=== PATIENT | male | born 1950 | race Caucasian/White ===

== ENCOUNTER 2016-08-31 09:19 | Inpatient (IN) | payer MEDICARE, MEDICAID ==
[~2016-08-31] VITALS: Ht 165.1 cm; Wt 158.4 kg
[2016-08-31] VITALS (11 sets, daily range): BP systolic 112–160; BP diastolic 72–104
[~2016-08-31 09:19] MED LIST: ACET-2429 PO; ACET650S27 PO; AD60O TP; AMIO200T2 PO; ASP81CT; ASP81CT PO; ASPI-983 PO; ATOR40TA70 PO; BNZ10T; BUDE10.22 IH; BUDE10.22 INH; BUDE6HFA IH; CEFD300C3 PO; CMBV14.7IN; DILT120C63 PO; DILT240C47 PO; DILT240C90 PO; DOXY100C2 PO; DOXY100T2 PO; FLUC200T45 PO; FLUT1AER IH; FRSM20T PO; GLIM4TAB PO; HYDR-2854; HYDR-3812 PO; HYDR1TAB; INSU100I14 SQ; INSU100I29 SQ; INSU100V16 SQ; INSU100V5 SQ; JANUVIA; KCL20TCR PO; LACT1CAP62 PO; LANS30CA PO; LEVO750T6 PO; LISI-552 PO; LISI10TA PO; LISI5TAB PO; LNS30CCR; LORA10TA2 PO; LOVA40TA2 PO; MELO-195 PO; MELO15TA39 PO; METF-380 PO; METF1000 PO; MNTL10T PO; MONT10TA24 PO; MTF500T PO; MTP50T; MUPI22OI TP; NAPR-243 PO; NAPR250T34; NF-ESOM40C PO; NF-SITA50T PO; NF-SOT120T; NITR0.3T PO; NITR0.3T6 SL; NITROGLYCERIN; NTR.4SL; NYST15CR3 TP; NYST1POW22 MC; OMEG1CAP51 PO; ONDA-42 SL; PANT40TA3 PO; PGLT30T PO; PRAV40TA2 PO; PRD20T PO; PROP150T2 PO; RIVA20TA PO; RPGL2T; RSG4T; RT-ALBUINH IH; RT-COMBINH; SIMV10TA PO; SOTA120T PO; SULF1TAB35 PO; TAZTIA; TIOT18CA2 INH; TMSL.4C PO; TOPI100T11 PO; TOPI50TA13 PO; TOPI50TA37 PO; TPR100T PO; TRAZ150T72 PO; TRIA1TAB3 PO; ZLP10T PO; ZOLP10TA5 PO
--- OUTSIDE RECORDS SUMMARY | 2016-08-31 09:26 | XMS REPORT | Continuity of Care Document ---
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 If you do not see the information that you expected, contact Release of Information in the Health Information Management department at [phone] for further assistance in locating additional records.[facility] Active Allergies and Adverse Reactions Not on File Current Medications Not on file Active Problems Not on file Social History Tobacco Use Types Packs/Day Years Used Date Never Assessed Plan of Care Health Maintenance Due Date Last Done Comments Hepatitis C Screening 1948 Physical (Comprehensive) 10/31/1955 Exam Pertussis Vaccine 10/31/1959 Tetanus Vaccine 1965 Colorectal Cancer 1998 Screening Shingles Vaccine 2008 Prevnar/Pneumovax (#1) 2013 Influenza Vaccine 04/07/2016 Results from Last 3 Months Not on file
[2016-08-31] MEDS ORDERED: RX-NITROGLYCERIN 0.4 MG TAB BTL 25'S SL PRN (09:30)
[2016-08-31] MEDS ORDERED: ASPIRIN 81 MG CHEW (CHILDREN'S ASA) PO ONE (09:30)
--- NOTE | 2016-08-31 09:49 | Diagnostic Imaging Report ---
INDICATION: Chest pain EXAMINATION: Portable chest at 9:46 AM. There is cardiomegaly. There is pulmonary vascular congestion with some interstitial edema. Lungs are clear. IMPRESSION: Cardiomegaly with pulmonary venous hypertension. Dictated by: Dictated on workstation # [id number]
[2016-08-31 09:50] LABS: BASOPHILS % (AUTO) 0 % (0-10); EOSINOPHILS # (AUTO) 0.1 10^3/uL (0.0-0.3); EOSINOPHILS % (AUTO) 1 % (0-10); LYMPHOCYTES % (AUTO) 14 % (12-44); MEAN CORPUSCULAR HEMOGLOBIN 28 PG (25-34); MEAN CORPUSCULAR HGB CONC 33 G/DL (32-36); MEAN CORPUSCULAR VOLUME 85 FL (80-99); MEAN PLATELET VOLUME 9.6 FL (7.4-10.4); MONOCYTES # (AUTO) 0.6 X 10^3 (0.0-1.0); MONOCYTES % (AUTO) 8 % (0-12); NEUTROPHILS # (AUTO) 5.6 X 10^3 (1.8-7.8); NEUTROPHILS % (AUTO) 77 % (42-75); PLATELET COUNT 249 10^3/uL (130-400); RED BLOOD COUNT 4.84 10^6/uL (4.35-5.85); RED CELL DISTRIBUTION WIDTH 14.9 % (10.0-14.5); WHITE BLOOD COUNT 7.3 10^3/uL (4.3-11.0)
[2016-08-31] MEDS ORDERED: FUROSEMIDE 40 MG/4 ML INJ (LASIX) IVP ONE (10:00)
[2016-08-31] MEDS ORDERED: NITROGLYCERIN 2% OINT 1 GM UNIT DOSE PACKET TOP ONE (10:00)
[2016-08-31 10:05] LABS: INR 1.2 (0.8-1.4); PROTHROMBIN TIME PATIENT 15.1 SEC (12.2-14.7)
[2016-08-31 10:13] LABS: ALANINE AMINOTRANSFERASE 23 U/L (0-55); ALBUMIN 3.6 G/DL (3.2-4.5); AMYLASE 9 U/L (25-125); ANION GAP 10 MMOL/L (5-14); ASPARTATE AMINO TRANSFERASE 19 U/L (5-34); BILIRUBIN,TOTAL 0.7 MG/DL (0.1-1.0); BLOOD UREA NITROGEN 16 MG/DL (7-18); BUN/CREATININE RATIO 18; CALCIUM 8.6 MG/DL (8.5-10.1); CARBON DIOXIDE 20 MMOL/L (21-32); CHLORIDE 105 MMOL/L (98-107); CREATINE KINASE 92 U/L (30-200); CREATININE SERUM 0.89 MG/DL (0.60-1.30); GFR ESTIMATED > 60; GLUCOSE 304 MG/DL (70-105); LIPASE 5 U/L (8-78); MAGNESIUM 1.6 MG/DL (1.8-2.4); POTASSIUM 3.6 MMOL/L (3.6-5.0); SODIUM 135 MMOL/L (135-145); TOTAL PROTEIN 6.1 G/DL (6.4-8.2)
[2016-08-31 10:19] LABS: TROPONIN I < 0.30 NG/ML (<0.30)
[2016-08-31] MEDS ORDERED: methylPREDNISolone 125 MG (Solu-MEDROL) VIAL IVP ONE (10:45)
[2016-08-31] MEDS ORDERED: ENOXAPARIN 60 MG/0.6 ML (LOVENOX) SYR SC ONE (10:45)
[2016-08-31] MEDS ORDERED: ENOXAPARIN 100 MG/1 ML (LOVENOX) SYR SC ONE (10:45)
--- NOTE | 2016-08-31 11:08 | Consultation-Cardiology ---
HPI-Cardiology Cardiology Consultation Date of Consultation 08/31/16 Date of Admission Indication: CP, dyspnea HPI Patient is a 65 y/o male with history of CAD, PAF, morbid obesity, lower extremity cellulitis. Presented to the ER with complaints of increasing dyspnea over the past couple days. Onset of CP this morning. Currently denies any CP. Reports has had fever over the past week. Denies any cough, nausea, vomiting. Denies any dizziness, lightheadedness, syncope. Continues to complain of peripheral edema. Patient was seen and evaluated with Josy, is a 65-year-old gentleman with history of cellulitis admitted with increasing dyspnea and noted to be in tachycardia, known to have paroxysmal atrial flutter with rapid ventricular response. Start on Cardizem drip. 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" Home Medication List Reviewed: Yes JCL-Dykxah-Xnelzp Hx Patient Social History Marital Status: single Alcohol Use: Denies Use Recreational Drug Use: No Smoking Status: Former Smoker Former smoker/When Quit: Jan 05, 1985 Recent Foreign Travel: No Recent Infectious Disease Expo: No Recent Hopitalizations: Yes (HEART PROBLEMS) Physical Abuse Screen: No Sexual Abuse: No Immunizations Up To Date Date of Pneumonia Vaccine: May 06, 2013 Date of Influenza Vaccine: Apr 25, 2016 Past Medical History CAD, PAF, HTN, HLP, Obesity Family Medical History Significant Family History: No Pertinent Family Hx, Diabetes Constitutional: No diaphoresis, No dizziness, fever malaise weakness EENTM: No blurred vision, No ear pain, No vision loss Respiratory: No cough, dyspnea on exertion short of breath Cardiovascular: chest pain edema palpitationsNo syncope, No vascular heart diseas Gastrointestinal: No abdominal pain, No constipation, No diarrhea Genitourinary: No dysuria, No frequency, No hematuria Musculoskeletal: No back pain, No joint pain Skin: No dryness, No lesions Psychiatric/Neurological: Denies Anxiety, Denies Depressed Reviewed Test Results Reviewed Test Results Lab Laboratory Tests 08/31/16 09:35: Activated Partial Thromboplast Time 33, Alanine Aminotransferase (ALT/SGPT) 23, Albumin 3.6, Alkaline Phosphatase 129, Amylase Level 9L, Anion Gap 10, Aspartate Amino Transf (AST/SGOT) 19, B-Type Natriuretic Peptide 51.7, BUN/ Creatinine Ratio 18, Basophils # (Auto) 0.0, Basophils (%) (Auto) 0, Blood Urea Nitrogen 16, Calcium Level 8.6, Carbon Dioxide Level 20L, Chloride Level 105, Creatine Kinase MB 1.7, Creatinine 0.89, Eosinophils # (Auto) 0.1, Eosinophils ( %) (Auto) 1, Estimat Glomerular Filtration Rate > 60, Glucose Level 304H, Hematocrit 41, Hemoglobin 13.6, INR Comment 1.2, Lactic Acid Level 1.6, Lipase 5L, Lymphocytes # (Auto) 1.0, Lymphocytes (%) (Auto) 14, Magnesium Level 1.6L, Mean Corpuscular Hemoglobin 28, Mean Corpuscular Hemoglobin Concent 33, Mean Corpuscular Volume 85, Mean Platelet Volume 9.6, Monocytes # (Auto) 0.6, Monocytes (%) (Auto) 8, Neutrophils # (Auto) 5.6, Neutrophils (%) (Auto) 77H, Platelet Count 249, Potassium Level 3.6, Prothrombin Time 15.1H, Red Blood Count 4.84, Red Cell Distribution Width 14.9H, Sodium Level 135, Total Bilirubin 0.7, Total Creatine Kinase 92, Total Protein 6.1L, Troponin I < 0.30, White Blood Count 7.3 Microbiology 08/31/16 Influenza Types A,B Antigen (ESTHELA) - Final, Complete ECG Impression ECG Initial ECG Rhythm: S.Tach Physical Exam Vital Signs Vital Sign - Last 12Hours 08/31/16 08/31/16 09:20 09:31 Temp 99.4 Pulse 149 Resp 40 B/P 162/96 Pulse Ox 94 O2 Delivery Nasal Cannula O2 Flow Rate 4 FiO2 94 Capillary Refill : Less Than 3 Seconds General Appearance: WD/WN Anxious Mild Distress HEENT: PERRL/EOMI Normal ENT Inspection Neck: Non Tender Supple Respiratory: Chest Non Tender No Accessory Muscle Use No Respiratory Distress Decreased Breath Sounds Cardiovascular: No Gallop No JVD No Murmur Tachycardia Gastrointestinal: No Pulsatile Mass Non Tender Soft Rectal: Deferred Back: No CVA Tenderness Extremity: Non Tender No Calf Tenderness Pedal Edema (+2 edema BLE) Neurologic/Psychiatric: Alert 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 Cardiac enzymes negative so far. Will continue to monitor. CP could be related to underlying tachycardia. Patient to undergo CTA chest for further evaluation. Dyspnea- increasing over the last week. Multifactorial. BNP within normal limits. Most recent 2-D echocardiogram in February 2016 showing ejection fraction 50 -55 percent, normal LV size and function. Coronary artery disease, mild nonobstructive disease per cardiac catheterization done May 07, 2013. Currently asymptomatic. Most recent stress test June 2015 revealed abnormal EKG during Lexiscan injection, resolved spontaneously. No significant ischemia or infarct. EF 71 percent. Paroxysmal atrial fibrillation, he was seen in the past by Dr. Mosher, failed medical treatment in the past with sotalol and amiodarone. Was seen in Consultation by Dr. Bell during his hospital stay in May 2016. Maintained on Propafenone, Cardizem and Xarelto. S/p LinQ implantation with no recent episode of afib. Telemetry revealed tachycardia with HR in the 140's. Was given IV adenoside revealing 2:1 atrial flutter. Will continue with Cardizem gtt. Continue to monitor telemetry. PAT- telemetry and EKG revealing sinus tachycardia. Restart home BP meds and continue to monitor. Hypertension, continue to monitor blood pressure Hyperlipidemia, on Pravachol, I will evaluate lipid profile. Lower extremity cellulitis, patient reports low grade fever over the past week. Further management per medical services. Peripheral edema- continue to diurese. [id number] score is 3, yearly risk of stroke without oral anticoagulation 3.2 percent. Patient is maintained on Xarelto Syncope, reporting improvement, continue to monitor. Still having occasional dizziness, no syncope was reported. Obstructive sleep apnea, COPD. Obesity, educated on weight loss. BMI is 55. Patient need to start on exercise and weight loss program. DM, followed and managed by primary care physician. Gastroesophageal reflux disease. Currently asymptomatic. Continue to monitor. Carotid stenosis, mild per ultrasound done in February 2016, continue to monitor. Thank you for allowing us to participate in the management of Mr. Renteria. This is Josy Cabrera PA-C as a scribe for Dr. Bonilla. This is Dr. Bonilla, I have seen and evaluated the patient with Josy, he is admitted for shortness of breath. Palpitation, there is venous congestion and his lung, BNP is normal. Has cellulitis. Receiving antibiotics. Noted to be tachycardic, started on Cardizem drip without benefit. I proceeded with adenosine injection of 6 mg which showed underlying rhythm of atrial flutter. Denied any chest pain, still short of breath. No palpitation. On examination lungs had bilateral rhonchi. Heart is tachycardic and regular.I would continue with maximizing medical therapy at this point. Continue with Xarelto on Cardizem drip, titrated to achieve adequate heart rate control. Clinical Quality Measures AMI/AHF: ASA po Prior to arrival: No JOSY OZUNA Aug 31, 2016 11:08 GABRIELA BONILLA MD Aug 31, 2016 18:27
[2016-08-31] MEDS ORDERED: DILTIAZEM 25 MG/5 ML INJ (CARDIZEM) VIAL ONE (11:11)
[2016-08-31] MEDS ORDERED: DILTIAZEM 25 MG/5 ML INJ (CARDIZEM) VIAL IVP ONE (11:30)
[2016-08-31] MEDS ORDERED: meTOprolol 5 MG/5 ML (LOPRESSOR) VIAL IV ONE (11:45)
[2016-08-31] MEDS ORDERED: NITROGLYCERIN SUBLINGUAL 0.4 MG TAB (NITROSTAT) SL PRN (12:45)
[2016-08-31] MEDS ORDERED: CATHETER FLUSH 10 ML SYR IV PRN ×2 (12:45→13:00)
[2016-08-31] MEDS ORDERED: morphine INJ 4 MG/ML 1 ML (VIAL/SYRINGE) IVP PRN (12:45)
--- NOTE | 2016-08-31 12:53 | Pulmonary Consultation ---
History of Present Illness History of Present Illness Date of Consultation 08/31/16 12:47 Date of Admission Reason for Visit: CP, dyspnea History of Present Illness 65yo with hx of CAD, PAF, morbid obesity presented to ED secondary to worsening SOB over the last couple days and onset of CP. I am consulted for pulmonary Management. 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" Home Medications Acetaminophen 650 Mg Tablet.er 650 MG PO Q8H PRN PRN MILD PAIN (Reported) Aspirin 81 Mg Tablet.dr 81 MG PO DAILY (Reported) Diltiazem HCl 240 Mg Cap.er.24h 240 MG PO DAILY (Reported) Diltiazem HCl 120 Mg Cap.er.24h #30 120 MG PO HS Prescribed by: GABRIELA MARTINEZ on 06/02/16 1237 Fluticasone/Vilanterol 1 Each Blst.w.dev 2 PUFF IH DAILY (Reported) Insulin Aspart 300 Units/3 Ml Solution SQ SLIDING/SCALE (Reported) 60-150 0 UNITS 151-200 4 UNITS 201-250 6 UNITS 251-300 8 UNITS 301- 350 10 UNITS 351-400 12 UNITS Insulin Detemir 100 Unit/1 Ml Insuln.pen SQ BID (Reported) Nitroglycerin 0.3 Mg Tab.subl 0.3 MG PO UD PRN PRN CHEST PAIN (Reported) NOT TO EXCEED 3 DOSES WITHIN 15 MINUTES Nystatin 1 Each Powder.ea. 1 EACH MC TID (Reported) APPLY TO ABDOMINAL FOLDS AND GROIN GUALDING AND REDNESS Pantoprazole Sodium 40 Mg Tablet.dr 40 MG PO DAILY (Reported) Pravastatin Sodium 40 Mg Tablet 40 MG PO HS (Reported) Propafenone HCl 150 Mg Tablet #60 225 MG PO BID Prescribed by: GABRIELA MARTINEZ on 06/02/16 1237 Rivaroxaban 20 Mg Tablet 20 MG PO DAILY (Reported) Tiotropium [place] 1 Inh Aerp 1 CAP INH DAILY (Reported) Topiramate 50 Mg Tablet 50 MG PO HS (Reported) Trazodone HCl 150 Mg Tablet 150 MG PO HS (Reported) Vitamin A & D 60 Gm Oint TP BID (Reported) Past Luufsdq-Zdpwek-Hbupou Hx Patient Social History Alcohol Use: Denies Use Recreational Drug Use: No Smoking Status: Former Smoker Former Smoker/When Quit: Jan 05, 1985 Recent Foreign Travel: No Contact w/Someone Who Travel: No Recent Infectious Disease Expo: No Recent Hopitalizations: Yes (HEART PROBLEMS) Physical Abuse Screen: No Sexual Abuse: No Immunizations Up To Date Date of Pneumonia Vaccine: May 06, 2013 Date of Influenza Vaccine: Apr 25, 2016 Seasonal Allergies Seasonal Allergies: Yes Surgeries HX Surgeries: Yes (patient unable to recall) Surgeries: Cardiac Respiratory Hx Respiratory Disorders: Yes Respiratory Disorders: Asthma, Sleep Apnea, COPD Cardiovascular Hx 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) Cardiac Disorders: Chronic Edema/Swelling, Coronary Artery Disease, Heart Attack, High Cholesterol, Hypertension, Palpitations Neurological Hx Neurological Disorders: Yes (MENTAL RETARDATION) Neurological Disorders: Developmental Disorder Reproductive System Hx Reproductive Disorders: No Genitourinary Hx Genitourinary Disorders: No Gastrointestinal Hx Gastrointestinal Disorders: Yes Gastrointestinal Disorders: Gastroesophageal Reflux Musculoskeletal Hx Musculoskeletal Disorders: Yes (chronic bilateral knee pain) Musculoskeletal Disorders: Arthritis, Chronic Back Pain Endocrine Hx Endocrine Disorders: Yes (MORBID OBESITY) Endocrine Disorders: Diabetes, Non-Insulin dep HEENT HX ENT Disorders: No Hearing Impairment: Hard of Hearing Cancer Hx Cancer: No Psychosocial Hx Psychiatric Problems: No Integumentary HX Skin/Integumentary Disorder: Yes (cellulitis) Blood Transfusions Hx Blood Disorders: No Family Medical History Significant Family History: No Pertinent Family Hx, Diabetes Exam Exam Vital Signs Date Time Temp Pulse Resp B/P Pulse Ox O2 Delivery O2 Flow Rate FiO2 08/31/16 11:15 138 30 95 OxyMask 5 08/31/16 09:31 99.4 149 40 162/96 94 Nasal Cannula 4 08/31/16 09:20 94 Nasal Cannula 4 94 08/31/16 09:20 Nasal Cannula 4 General Appearance: WD/WN Anxious Mild Distress HEENT: PERRL/EOMI Normal ENT Inspection Neck: Non Tender Supple Respiratory: Chest Non Tender No Accessory Muscle Use No Respiratory Distress Decreased Breath Sounds Cardiovascular: No Gallop No JVD No Murmur Tachycardia Capillary Refill: Less Than 3 Seconds Extremity: Non Tender No Calf Tenderness Pedal Edema (+2 edema BLE) Neurologic/Psychiatric: 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
[2016-08-31] MEDS ORDERED: RT-ALBUTEROL/IPRATROPIUM 3 ML (DUONEB) VIAL INH SCH (13:00)
[2016-08-31] MEDS ORDERED: IOHEXOL 350 MG/ML 150 ML (OMNIPAQUE 350) VIAL IV ONE (13:00)
[2016-08-31] MEDS ORDERED: RT-ALBUTEROL/IPRATROPIUM 3 ML (DUONEB) VIAL INH PRN (13:00)
[2016-08-31] MEDS ORDERED: NS 100 ML (IVPB) BAG IV ONE (13:00)
--- NOTE | 2016-08-31 13:46 | Diagnostic Imaging Report ---
PROCEDURE: CT angiography of the chest with contrast. TECHNIQUE: Multiple contiguous axial images were obtained through the chest after uneventful bolus administration of intravenous contrast. Reconstructed CTA MIP acquisitions were also performed. INDICATION: Shortness of air. Congestive heart failure. Chest pain. Tachycardia. COMPARISON: Chest radiograph 08/31/2016. FINDINGS: Evaluation is limited by contrast timing and motion artifact. There are no large or central pulmonary emboli. Moderate atherosclerotic calcifications including aortic and coronary. No evidence of thoracic aortic aneurysm or dissection on this nondedicated exam. Diffuse groundglass opacities with interlobular septal thickening consistent with pulmonary edema. Small areas of consolidation in the lung bases, right greater than left. No axillary, mediastinal or hilar lymphadenopathy. Cholecystectomy. The visualized upper abdominal contents, including the adrenal glands, are otherwise unremarkable. Moderate degenerative changes in the thoracic spine. IMPRESSION: 1. Examination is limited by motion artifact and contrast timing. 2. No large or central pulmonary emboli. 3. Diffuse groundglass opacities and interlobular septal thickening consistent with pulmonary edema. 4. Small bilateral pleural effusions. 5. Nonspecific small areas of consolidation in the lung bases, right greater than left. This may represent atelectasis. However, an infectious/inflammatory process cannot be excluded. Dictated by: Dictated on workstation # [id number]
[2016-08-31] MEDS: RT-ALBUTEROL/IPRATROPIUM 3 ML (DUONEB) VIAL INH SCH ×2 (14:09→20:08)
[2016-08-31] MEDS: methylPREDNISolone 40 MG/ML (Solu-MEDROL) VIAL IV SCH ×2 (14:12→19:41)
[2016-08-31 14:13] LABS: ABG BASE EXCESS -3.6 MMOL/L (-2.5-2.5); ABG HCO3 21 MMOL/L (23-27); ABG OXYGEN SATURATION 98 % (94-100); ABG PCO2 35 MMHG (35-45); ABG PH 7.39 (7.37-7.43); ABG PO2 99 MMHG (79-93); ABG TCO2 21.7 MMOL/L (21.0-31.0)
[2016-08-31] MEDS: CATHETER FLUSH 10 ML SYR IV SCH ×2 (14:13→21:16)
[2016-08-31] MEDS: DILTIAZEM DRIP 100 MG in SODIUM CHLORIDE (ADD-VANTAGE) 100 ML IV SCH ×2 (14:13→19:41)
[2016-08-31 14:14] LABS: ALLENS TEST YES-POS; PATIENT TEMP 98.4
--- NOTE | 2016-08-31 14:14 | Diagnostic Imaging Report ---
INDICATION: Shortness of air. FINDINGS: The bilateral femoral popliteal deep venous system reveals normal color flow and normal compressibility on grayscale. No deep or superficial thrombi are identified. IMPRESSION: Normal negative bilateral lower extremity venous Doppler and ultrasound exam. Dictated by: Dictated on workstation # [id number]
[2016-08-31] MEDS ORDERED: ADENOSINE 6 MG/2 ML (ADENOCARD) VIAL IV ONE ×3 (14:19→15:00)
[2016-08-31] MEDS ORDERED: NS IV 1000 ML 1,000 ML ONE (14:21)
--- NOTE | 2016-08-31 15:34 | ED Cardiac General ---
History of Present Illness General Chief Complaint: Chest Pain Stated Complaint: CHF CHEST PAIN TACHYCARDIA Nursing Triage Note: PT CO OF CHEST PAIN STARTED AT O500 THIS AM AT MI, PT DENIES C/P AT THIS X. PT HAS NITRO SL X1. PT IS SOA, RR 40 SAT 91%RA,O2@4L PER N/C 95% Source: patient (SOMEWHAT LIMITED HISTORIAN AND SPEECH VERY DIFFICULT TO UNDERSTAND), senior living records, old records History of Present Illness Time seen by provider: 09:25 Initial Comments PT ARRIVES VIA POV FROM ASSISTED PT C/O CHEST PAIN AND SHORTNESS OF BREATH SINCE WAKING AT 0500 WAS GIVEN NTG X 1 AT ASSISTED, AND CHEST PAIN IS COMPLETELY RESOLVED, BUT STILL FEELS SHORT OF BREATH HAS CHRONIC LEG EDEMA AND STATES IT IS NO WORSE THAN NORMAL. 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" Home Medications Acetaminophen 650 Mg Tablet.er 650 MG PO Q8H PRN PRN MILD PAIN (Reported) Aspirin 81 Mg Tablet.dr 81 MG PO DAILY (Reported) Diltiazem HCl 240 Mg Cap.er.24h 240 MG PO DAILY (Reported) Diltiazem HCl 120 Mg Cap.er.24h #30 120 MG PO HS Prescribed by: GABRIELA MARTINEZ on 06/02/16 1237 Fluticasone/Vilanterol 1 Each Blst.w.dev 2 PUFF IH DAILY (Reported) Insulin Aspart 300 Units/3 Ml Solution SQ SLIDING/SCALE (Reported) 60-150 0 UNITS 151-200 4 UNITS 201-250 6 UNITS 251-300 8 UNITS 301- 350 10 UNITS 351-400 12 UNITS Insulin Detemir 100 Unit/1 Ml Insuln.pen SQ BID (Reported) Nitroglycerin 0.3 Mg Tab.subl 0.3 MG PO UD PRN PRN CHEST PAIN (Reported) NOT TO EXCEED 3 DOSES WITHIN 15 MINUTES Nystatin 1 Each Powder.ea. 1 EACH MC TID (Reported) APPLY TO ABDOMINAL FOLDS AND GROIN GUALDING AND REDNESS Pantoprazole Sodium 40 Mg Tablet.dr 40 MG PO DAILY (Reported) Pravastatin Sodium 40 Mg Tablet 40 MG PO HS (Reported) Propafenone HCl 150 Mg Tablet #60 225 MG PO BID Prescribed by: GABRIELA MARTINEZ on 06/02/16 1237 Rivaroxaban 20 Mg Tablet 20 MG PO DAILY (Reported) Tiotropium [place] 1 Inh Aerp 1 CAP INH DAILY (Reported) Topiramate 50 Mg Tablet 50 MG PO HS (Reported) Trazodone HCl 150 Mg Tablet 150 MG PO HS (Reported) Vitamin A & D 60 Gm Oint TP BID (Reported) Review of Systems Constitutional: No diaphoresis, No dizziness, fever malaise weakness EENTM: No Symptoms Reported Respiratory: See HPI Cough Orthopnea Shortness of Air Wheezing Cardiovascular: See HPI Chest Pain EdemaDenies Lightheadedness, Denies Palpitations, Denies Syncope Gastrointestinal: No Symptoms ReportedDenies Abdominal Pain, Denies Nausea, Denies Vomiting Genitourinary: No Symptoms Reported Musculoskeletal: see HPI (EDEMA)No back pain Skin: no symptoms reportedNo dryness, No lesions Psychiatric/Neurological: No Symptoms ReportedDenies Anxiety, Denies Depressed Endocrine: No Symptoms Reported Hematologic/Lymphatic: No Symptoms Reported Past Mymlyjm-Vslfjx-Mabkww Hx Patient Social History Alcohol Use: Denies Use Recreational Drug Use: No Smoking Status: Former Smoker Former Smoker/When Quit: Jan 05, 1985 Recent Foreign Travel: No Contact w/Someone Who Travel: No Recent Infectious Disease Expo: No Recent Hopitalizations: Yes (HEART PROBLEMS) Physical Abuse Screen: No Sexual Abuse: No Immunizations Up To Date Date of Pneumonia Vaccine: May 06, 2013 Date of Influenza Vaccine: Apr 25, 2016 Seasonal Allergies Seasonal Allergies: Yes Surgeries HX Surgeries: Yes (patient unable to recall) Surgeries: Abdominal, Cardiac Respiratory Hx Respiratory Disorders: Yes Respiratory Disorders: Asthma, Sleep Apnea, COPD Cardiovascular Hx Cardiac Disorders: Yes (REVEAL LINQ WHISKEY REGAUGER IMPLANTED) Cardiac Disorders: Chronic Edema/Swelling, Coronary Artery Disease, Heart Attack, High Cholesterol, Hypertension, Palpitations Neurological Hx Neurological Disorders: Yes (MENTAL RETARDATION) Neurological Disorders: Developmental Disorder Reproductive System Hx Reproductive Disorders: No Genitourinary Hx Genitourinary Disorders: No Gastrointestinal Hx Gastrointestinal Disorders: Yes Gastrointestinal Disorders: Gastroesophageal Reflux Musculoskeletal Hx Musculoskeletal Disorders: Yes (chronic bilateral knee pain) Musculoskeletal Disorders: Arthritis, Chronic Back Pain Endocrine Hx Endocrine Disorders: Yes (MORBID OBESITY) Endocrine Disorders: Diabetes, Non-Insulin dep HEENT HX ENT Disorders: No Hearing Impairment: Hard of Hearing Cancer Hx Cancer: No Psychosocial Hx Psychiatric Problems: No Integumentary HX Skin/Integumentary Disorder: Yes (CELLULITIS) Blood Transfusions Hx Blood Disorders: No Family Medical History Significant Family History: Diabetes Physical Exam Vital Signs Vital Sign - Last 12Hours 08/31/16 08/31/16 09:20 09:31 Temp 99.4 Pulse 149 Resp 40 B/P 162/96 Pulse Ox 94 O2 Delivery Nasal Cannula O2 Flow Rate 4 FiO2 94 Capillary Refill : Less Than 3 Seconds General Appearance: Mild Distress (TALKS IN 1-2 WORD SENTENCES) Obese ( MORBIDLY) HEENT: PERRL/EOMI Other (MARKED INFLAMMATION OF RIGHT CONJUNCTIVA WITH CONSTANT TEARING. NO PURULENT DRAINAGE. NO LID SWELLING) Respiratory: Decreased Breath Sounds (IN ALL LUNG SR) Cardiovascular: Tachycardia Extremity: Pedal Edema (3+ WITH CHRONIC VENOUS STASIS CHANGES AND WOODY INDURATION) Neurologic/Psychiatric: Alert Oriented x3 No Motor/Sensory Deficits (GROSSLY INTACT) Normal Mood/Affect Skin: Normal Color Warm/Dry Progress/Results/Core Measures Results/Orders Lab Results Laboratory Tests Test 08/31/16 09:35 Range/Units Activated Partial Thromboplast Time 33 24-35 SEC Alanine Aminotransferase (ALT/SGPT) 23 0-55 U/L Albumin 3.6 3.2-4.5 G/DL Alkaline Phosphatase 129 40-136 U/L Amylase Level 9 L 25-125 U/L Anion Gap 10 5-14 MMOL/L Aspartate Amino Transf (AST/SGOT) 19 5-34 U/L B-Type Natriuretic Peptide 51.7 <100.0 PG/ML BUN/Creatinine Ratio 18 Basophils # (Auto) 0.0 0.0-0.1 10^3/uL Basophils (%) (Auto) 0 0-10 % Blood Urea Nitrogen 16 7-18 MG/DL Calcium Level 8.6 8.5-10.1 MG/DL Carbon Dioxide Level 20 L 21-32 MMOL/L Chloride Level 105 98-107 MMOL/L Creatine Kinase MB 1.7 <6.6 NG/ML Creatinine 0.89 0.60-1.30 MG/DL Eosinophils # (Auto) 0.1 0.0-0.3 10^3/uL Eosinophils (%) (Auto) 1 0-10 % Estimat Glomerular Filtration Rate > 60 Glucose Level 304 H 70-105 MG/DL Hematocrit 41 40-54 % Hemoglobin 13.6 13.3-17.7 G/DL INR Comment 1.2 0.8-1.4 Lactic Acid Level 1.6 0.5-2.0 MMOL/L Lipase 5 L 8-78 U/L Lymphocytes # (Auto) 1.0 1.0-4.0 X 10^3 Lymphocytes (%) (Auto) 14 12-44 % Magnesium Level 1.6 L 1.8-2.4 MG/DL Mean Corpuscular Hemoglobin 28 25-34 PG Mean Corpuscular Hemoglobin Concent 33 32-36 G/DL Mean Corpuscular Volume 85 80-99 FL Mean Platelet Volume 9.6 7.4-10.4 FL Monocytes # (Auto) 0.6 0.0-1.0 X 10^3 Monocytes (%) (Auto) 8 0-12 % Neutrophils # (Auto) 5.6 1.8-7.8 X 10^3 Neutrophils (%) (Auto) 77 H 42-75 % Platelet Count 249 130-400 10^3/uL Potassium Level 3.6 3.6-5.0 MMOL/L Prothrombin Time 15.1 H 12.2-14.7 SEC Red Blood Count 4.84 4.35-5.85 10^6/uL Red Cell Distribution Width 14.9 H 10.0-14.5 % Sodium Level 135 135-145 MMOL/L Total Bilirubin 0.7 0.1-1.0 MG/DL Total Creatine Kinase 92 30-200 U/L Total Protein 6.1 L 6.4-8.2 G/DL Troponin I < 0.30 <0.30 NG/ML White Blood Count 7.3 4.3-11.0 10^3/uL Micro Results Microbiology 08/31/16 Influenza Types A,B Antigen (ESTHELA) - Final, Complete My Orders Orders-FRED MEDINA DO Amylase (08/31/16 09:25) Cbc With Automated Diff (08/31/16 09:25) Comprehensive Metabolic Panel (08/31/16 09:25) Creatine Kinase (08/31/16 09:25) Creatine Kinase Mb (08/31/16 09:25) Lipase (08/31/16 09:25) Partial Thromboplastin Time (08/31/16 09:25) Protime With Inr (08/31/16 09:25) Troponin I (08/31/16 09:25) Chest 1 View, Ap/Pa Only (08/31/16 09:25) O2 (08/31/16 09:25) Ekg Tracing (08/31/16 09:25) Aspirin Chewable Tablet (Baby Aspirin Ch (08/31/16 09:30) Rx-Nitroglycerin Sl Tabs (Rx-Nitrostat S (08/31/16 09:30) BNP (08/31/16 09:25) Monitor-Rhythm Ecg Trace Only (08/31/16 09:25) Magnesium (08/31/16 09:25) Lactic Acid Analyzer (08/31/16 09:37) Blood Culture (08/31/16 09:37) Influenza A And B Antigens (08/31/16 09:37) Furosemide Injection (Lasix Injection) (08/31/16 10:00) Nitroglycerin Ointment (Nitrobid Ointme (08/31/16 10:00) Methylprednisolone Sod Succ (Solu-Medrol (08/31/16 10:45) Enoxaparin Injection (Lovenox Injection) (08/31/16 10:45) Enoxaparin Injection (Lovenox Injection) (08/31/16 10:45) Medications Given in ED Current Medications Medications Dose Ordered Sig/Neo Route Start Time Stop Time Status Last Admin Dose Admin Aspirin 324 mg ONCE ONCE PO 08/31/16 09:30 08/31/16 09:31 DC 08/31/16 09:42 324 MG Enoxaparin Sodium 50 mg ONCE ONCE SC 08/31/16 10:45 08/31/16 10:49 DC 08/31/16 11:02 50 MG Enoxaparin Sodium 100 mg ONCE ONCE SC 08/31/16 10:45 08/31/16 10:49 DC 08/31/16 11:02 100 MG Furosemide 80 mg ONCE ONCE IVP 08/31/16 10:00 08/31/16 10:01 DC 08/31/16 10:06 80 MG Methylprednisolone Sodium Succinate 125 mg ONCE ONCE IVP 08/31/16 10:45 08/31/16 10:46 DC 08/31/16 10:59 125 MG Nitroglycerin 0.5 inch ONCE ONCE TOP 08/31/16 10:00 08/31/16 10:01 DC 08/31/16 10:06 0.5 INCH Vital Signs/I&O Vital Sign - Last 12Hours 08/31/16 08/31/16 08/31/16 09:20 09:20 09:31 Temp 99.4 Pulse 149 Resp 40 B/P 162/96 Pulse Ox 94 94 O2 Delivery Nasal Cannula Nasal Cannula Nasal Cannula O2 Flow Rate 4 4 4 FiO2 94 Blood Pressure Mean: 118 Progress Note : Progress Note NO CHEST PAIN DURING ER STAY NO SIGNIFICANT IMPROVEMENT IN HEART RATE OR BP WITH CARDIZEM AND LOPRESSOR ECG Initial ECG Impression Time: 09:30 Initial ECG Rate: 142 Initial ECG Rhythm: SVT Initial ECG Comparisson: Unchanged Diagnostic Imaging Comments CXR--CARDIOMEGALY WITH PULMONARY VASCULAR CONGESTION--PER RADIOLOGIST REPORT Reviewed: Reviewed by Me Departure Communication Progress Notes 1022--SPOKE WITH DR. COSBY, ACCEPTS PT FOR ADMIT. WILL CONSULT DR. MARTINEZ AND DR. BRAUN 1039--SPOKE WITH DR. MARTINEZ FOR CARDIOLOGY CONSULT--WILL ORDER BILATERAL VENOUS DOPPLER OF LEGS AND CT CHEST ANGIOGRAM. WILL GIVE LOVENOX AND SOLU-MEDROL WELL. WILL HAVE DR. BRAUN NOTIFIED ON PT'S ADMIT. Impression Impression: Primary Impression: Chest pain Additional Impressions: CHF (congestive heart failure) POSSIBLE ARDS Supraventricular tachycardia SINUS TACHYCARDIA VS A FIB WITH RVR Morbid obesity MORBID OBESITY CHRONIC LEG EDEMA Disposition: ADMITTED INPATIENT Condition: Stable Decision to Admit/Date: Aug 31, 2016 Time/Decision to Admit Time: 10:25 Departure-Patient Inst. Referrals: EDEN OLSON MD (PCP) Primary Care Physician FRED MEDINA DO Aug 31, 2016 15:34
[2016-08-31] MEDS ORDERED: PROP225T2 PO (16:14)
[2016-08-31] MEDS ORDERED: GLIM4TAB PO (16:14)
[2016-08-31] MEDS ORDERED: ACET325T49 PO (16:14)
[2016-08-31] MEDS ORDERED: NEO/3.5O18 OD (16:14)
[2016-08-31] MEDS ORDERED: DILT120C85 PO (16:14)
[2016-08-31] MEDS ORDERED: VIGAMOX OS (16:14)
[2016-08-31] MEDS ORDERED: PROP15DR OD (16:15)
[2016-08-31] MEDS: inSUlin (REGULAR) HUMAN 1 UNIT/0.01 ML (CHARGE PER UNIT) SC SCH ×2 (16:59→21:20)
[2016-08-31] MEDS ORDERED: RIVAROXABAN 20 MG TABLET (XARELTO) PO SCH (17:00)
[2016-08-31] MEDS ORDERED: DIGOXIN 0.25 MG/ML (LANOXIN) 2 ML AMP IV ONE (18:15)
[2016-09-01] VITALS (18 sets, daily range): BP systolic 101–146; BP diastolic 64–86
[2016-09-01] MEDS: DIGOXIN 0.25 MG/ML (LANOXIN) 2 ML AMP IV SCH ×2 (00:42→06:19)
[2016-09-01] MEDS: methylPREDNISolone 40 MG/ML (Solu-MEDROL) VIAL IV SCH ×4 (00:45→18:49)
[2016-09-01] MEDS: DILTIAZEM DRIP 100 MG in SODIUM CHLORIDE (ADD-VANTAGE) 100 ML IV SCH ×2 (00:52→06:12)
[2016-09-01] MEDS: RT-ALBUTEROL/IPRATROPIUM 3 ML (DUONEB) VIAL INH SCH ×4 (02:05→20:52)
[2016-09-01 04:24] LABS: BASOPHILS % (AUTO) 0 % (0-10); EOSINOPHILS % (AUTO) 0 % (0-10); LYMPHOCYTES # (AUTO) 0.4 X 10^3 (1.0-4.0); LYMPHOCYTES % (AUTO) 7 % (12-44); MEAN CORPUSCULAR HEMOGLOBIN 28 PG (25-34); MEAN CORPUSCULAR HGB CONC 33 G/DL (32-36); MEAN CORPUSCULAR VOLUME 84 FL (80-99); MEAN PLATELET VOLUME 9.7 FL (7.4-10.4); MONOCYTES # (AUTO) 0.1 X 10^3 (0.0-1.0); MONOCYTES % (AUTO) 1 % (0-12); NEUTROPHILS # (AUTO) 5.1 X 10^3 (1.8-7.8); NEUTROPHILS % (AUTO) 92 % (42-75); PLATELET COUNT 237 10^3/uL (130-400); RED BLOOD COUNT 4.76 10^6/uL (4.35-5.85); RED CELL DISTRIBUTION WIDTH 14.8 % (10.0-14.5); WHITE BLOOD COUNT 5.5 10^3/uL (4.3-11.0)
[2016-09-01 04:50] LABS: ALANINE AMINOTRANSFERASE 23 U/L (0-55); ALBUMIN 3.5 G/DL (3.2-4.5); ANION GAP 12 MMOL/L (5-14); ANISOCYTOSIS SLIGHT; ASPARTATE AMINO TRANSFERASE 18 U/L (5-34); BAND NEUTROPHILS 0 %; BASOPHILS % (MANUAL) 0 %; BILIRUBIN,TOTAL 0.5 MG/DL (0.1-1.0); BLOOD UREA NITROGEN 18 MG/DL (7-18); BUN/CREATININE RATIO 21; CALCIUM 8.8 MG/DL (8.5-10.1); CARBON DIOXIDE 18 MMOL/L (21-32); CHLORIDE 107 MMOL/L (98-107); CREATININE SERUM 0.84 MG/DL (0.60-1.30); EOSINOPHILS % (MANUAL) 0 %; GFR ESTIMATED > 60; GLUCOSE 300 MG/DL (70-105); LYMPHOCYTES % (MANUAL) 5 %; NEUTROPHILS % (MANUAL) 90 %; POTASSIUM 3.9 MMOL/L (3.6-5.0); REACTIVE LYMPHOCYTES 4 %; SODIUM 137 MMOL/L (135-145); TOTAL PROTEIN 6.1 G/DL (6.4-8.2)
[2016-09-01 05:07] LABS: MAGNESIUM 1.8 MG/DL (1.8-2.4); PHOSPHORUS 4.4 MG/DL (2.3-4.7)
[2016-09-01] MEDS: CATHETER FLUSH 10 ML SYR IV SCH ×3 (05:49→21:55)
[2016-09-01] MEDS: inSUlin (REGULAR) HUMAN 1 UNIT/0.01 ML (CHARGE PER UNIT) SC SCH ×4 (06:19→21:55)
--- NOTE | 2016-09-01 07:28 | Cardiology Progress Note ---
Subjective Subjective/Events-last exam patient is feeling better, converted to sinus rhythm. No chest pain Review of Systems General: No Chills, No Night Sweats, No Fatigue, No Malaise, No Appetite, No Other HEENT: No Head Aches, No Visual Changes, No Eye Pain, No Ear Pain, No Dysphasia , No Sinus Congestion, No Post Nasal Drip, No Sore Throat, No Other Pulmonary: Dyspnea CoughNo Pleuritic Chest Pain, No Other Cardiovascular: : EdemaNo: Chest Pain, Lt Headedness, Orthopnea, Other, Palpitations, Paroxysmal Noc. Dyspnea Objective-Cardiology Exam Last Set of Vital Signs Vital Signs 09/01/16 09/01/16 09/01/16 04:00 06:00 06:12 Temp 98.5 Pulse 123 Resp 25 B/P 118/75 Pulse Ox 92 O2 Delivery NIV/Bilevel O2 Flow Rate 70.00 FiO2 70 Capillary Refill : Less Than 3 Seconds I&O Bad tableGeneral: Alert, Oriented X3, Cooperative, Mild Distress HEENT: Atraumatic, PERRLA Neck: Supple, No JVD, No Thyromegaly, Other Lungs: Normal Air Movement, Other (bilateral rhonchi) Heart: Regular Rate, Normal S1, Normal S2, No Murmurs Abdomen: Normal Bowel Sounds, Soft, No Tenderness, No Hepatosplenomegaly, No Masses Extremities: No Clubbing, No Cyanosis, No Tenderness/Swelling, Other (erythema and edema) Skin: Other (cellulitis on the lower extremity) Neuro: Strength at 5/5 X4 Ext, Normal Tone, Sensation Intact Psych/Mental Status: Mood NL Results Lab Laboratory Tests 08/31/16 09:35 09/01/16 03:58 A/P-Cardiology Admission Diagnosis CP Dyspnea PAF PAT Assessment/Plan Dyspnea, acute respiratory insufficiency. Most recent 2-D echocardiogram in February 2016 showing ejection fraction 50-55 percent, normal LV size and function. improving at this time. Coronary artery disease, mild nonobstructive disease per cardiac catheterization done May 07, 2013. Currently asymptomatic. Most recent stress test June 2015 revealed abnormal EKG during Lexiscan injection, resolved spontaneously. No significant ischemia or infarct. EF 71 percent. Paroxysmal atrial fibrillation, he was seen in the past by Dr. Mosher, failed medical treatment in the past with sotalol and amiodarone. Was seen in Consultation by Dr. Bell during his hospital stay in May 2016. Maintained on Propafenone, Cardizem and Xarelto. S/p LinQ implantation with no recent episode of afib. Telemetry revealed tachycardia with HR in the 140's. Was given IV adenosie revealing 2:1 atrial flutter. converted to sinus rhythm at this time. Continue to monitor Hypertension, continue to monitor blood pressure Hyperlipidemia, on Pravachol, monitor lipids Lower extremity cellulitis, patient reports low grade fever over the past week. Further management per medical services. Peripheral edema- continue to diurese. [id number] score is 3, yearly risk of stroke without oral anticoagulation 3.2 percent. Patient is maintained on Xarelto Syncope, reporting improvement, continue to monitor. Still having occasional dizziness, no syncope was reported. Obstructive sleep apnea, COPD. Obesity, educated on weight loss. BMI is 55. Patient need to start on exercise and weight loss program. DM, followed and managed by primary care physician. Gastroesophageal reflux disease. Currently asymptomatic. Continue to monitor. Carotid stenosis, mild per ultrasound done in February 2016, continue to monitor. Clinical Quality Measures AMI/AHF: ASA po Prior to arrival: No DVT/VTE Risk/Contraindication: Risk Factor Score Per Nursin RFS Level Per Nursing on Admit: 4+=Very High GABRIELA MARTINEZ MD Sep 01, 2016 07:28
--- NOTE | 2016-09-01 07:40 | Diagnostic Imaging Report ---
INDICATION: Chest pain and tachycardia 0438 hours Since the study of one day earlier, there is persistent cardiomegaly. Bilateral airspace disease is stable or slightly improved. No pneumothorax or new infiltrate is seen. IMPRESSION: Cardiomegaly with stable or mildly improved bilateral edema. Dictated by: Dictated on workstation # [id number]
[2016-09-01] MEDS: ASPIRIN E.C. 81 MG (ECOTRIN) TAB PO SCH (08:57)
[2016-09-01] MEDS: DILTIAZEM 240 MG (CARDIZEM CD) CAP PO SCH (08:57)
[2016-09-01] MEDS ORDERED: ASPIRIN E.C. 325 MG (ECOTRIN) TABLET PO SCH (09:00)
[2016-09-01] MEDS ORDERED: ASPIRIN E.C. 81 MG (ECOTRIN) TAB PO SCH (09:00)
--- NOTE | 2016-09-01 09:53 | History & Physical-Hospitalist ---
HPI History of Present Illness: HPI/Chief Complaint CC: Shortness of breath HPI: Mr. Renteria is a 65yoWM with a PMH of DM, HTN, CAD, CHF, and ZEN who was brought to the hospital by the usp after being short of breath with chest pain yesterday. He described his pain as "like getting kicked in the chest ". The pain was centered in the sternum, and did not radiate anywhere. He did not have any associated syncope, diaphoresis, or dizziness. He was short of breath at this time. He was given a nitroglycerin in the ED and the chest pain went away. He has not had a repeat of chest pain since then. He was found to be in Afib with RVR with the rate in the 130's. He was admitted to the ICU on a Cardizem drip. He converted back to sinus rhythm around 0700 on 09/01/16 and was started on PO medication so he could be transferred to the floor. He has been feeling much better this morning. He feels like he can catch his breath. RN interview: Patient was on BiPap overnight requiring 15L of oxygen supplementation. By this morning after he converted he was doing much better and was off BiPap only needing 6L via NC. Patient's PCP is Dr. Alcazar. He lives in [place] currently. 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" Past Vwkfbqs-Yrueak-Qoskrw Hx Patient Social History Marrital Status: single Alcohol Use: Denies Use Recreational Drug Use: No Smoking Status: Former Smoker Former smoker/When Quit: Jan 05, 1985 Physical Abuse Screen: No Sexual Abuse: No Recent Foreign Travel: No Contact w/other who traveled: No Recent Hopitalizations: Yes (HEART PROBLEMS) Recent Infectious Disease Expo: No Immunizations Up To Date Date of Pneumonia Vaccine: May 06, 2013 Date of Influenza Vaccine: Apr 25, 2016 Seasonal Allergies Seasonal Allergies: Yes Surgeries HX Surgeries: Yes (patient unable to recall) Surgeries: Abdominal, Cardiac Respiratory Hx Respiratory Disorders: Yes Respiratory Disorders: Sleep Apnea Cardiovascular Hx Cardiovascular Disorders: Yes (REVEAL LINQ TRADE SHOW COORDINATOR IMPLANTED) Cardiac Disorders: Chronic Edema/Swelling, Coronary Artery Disease, Heart Attack, High Cholesterol, Hypertension, Palpitations Neurological Hx Neurological Disorders: Yes (MENTAL RETARDATION) Neurological Disorders: Developmental Disorder Reproductive System Hx Reproductive Disorders: No Genitourinary Hx Genitourinary Disorders: No Gastrointestinal Hx Gastrointestinal Disorders: Yes Gastrointestinal Disorders: Gastroesophageal Reflux Musculoskeletal Hx Musculoskeletal Disorders: Yes (chronic bilateral knee pain) Musculoskeletal Disorders: Arthritis, Chronic Back Pain Endocrine Hx Endocrine Disorders: Yes (MORBID OBESITY) Endocrine Disorders: Diabetes, Non-Insulin dep HEENT HX ENT Disorders: No Hearing Impairment: Hard of Hearing Cancer Hx Cancer: No Psychosocial Hx Psychiatric Problems: No Integumentary HX Skin/Integumentary Disorder: Yes (CELLULITIS) Blood Transfusions Hx Blood Disorders: No Family Medical History Significant Family History: Diabetes Review of Systems Constitutional: No chills, No diaphoresis, No dizziness, No fever EENTM: no symptoms reported Respiratory: orthopnea short of breath wheezing Cardiovascular: chest pain (resolved)No palpitations, No syncope Gastrointestinal: no symptoms reported Genitourinary: no symptoms reported Musculoskeletal: no symptoms reported Skin: rash (on legs) Psychiatric/Neurological: No Symptoms Reported All Other Systems Reviewed Negative Unless Noted: Yes Physical Exam Physical Exam Vital Signs Vital Sign - Last 12Hours 08/31/16 08/31/16 09:20 09:31 Temp 99.4 Pulse 149 Resp 40 B/P 162/96 Pulse Ox 94 O2 Delivery Nasal Cannula O2 Flow Rate 4 FiO2 94 Capillary Refill : Less Than 3 Seconds General Appearance: No Apparent Distress WD/WN Chronically ill Obese Other ( breathing much more comfortably today) HEENT: PERRL/EOMI TMs Normal Normal ENT Inspection Pharynx Normal Neck: Full Range of Motion Normal Inspection Non Tender Supple Respiratory: Chest Non Tender No Accessory Muscle Use No Respiratory Distress Other (decreased breath sounds do to body habitus but lungs more clear today) Cardiovascular: Regular Rate, Rhythm No Gallop No JVD No Murmur Normal Peripheral Pulses Irregularly Irregular Other (3+ peripheral edema with skin color changes) Gastrointestinal: Normal Bowel Sounds No Organomegaly No Pulsatile Mass Non Tender Soft Other (morbidly obese) Rectal: Deferred Back: Normal Inspection Extremity: Normal Capillary Refill Normal Range of Motion Non Tender No Calf Tenderness Pedal Edema Neurologic/Psychiatric: Alert Oriented x3 No Motor/Sensory Deficits Normal Mood/Affect Skin: Normal Color Warm/Dry Lymphatic: No Adenopathy Results Results/Procedures Lab Laboratory Tests 08/31/16 09:35 09/01/16 03:58 Radiology Chest xray 08/31: Cardiomegaly with pulmonary venous hypertension. chest xray 09/01: Cardiomegaly with stable or mildly improved bilateral edema. CTA chest/thorax: 1. Examination is limited by motion artifact and contrast timing. 2. No large or central pulmonary emboli. 3. Diffuse groundglass opacities and interlobular septal thickening consistent with pulmonary edema. 4. Small bilateral pleural effusions. 5. Nonspecific small areas of consolidation in the lung bases, right greater than left. This may represent atelectasis. However, an infectious/inflammatory process cannot be excluded. US b/l lower ext: Normal negative bilateral lower extremity venous Doppler and ultrasound exam. Assessment/Plan Admission Diagnosis 1. Afib with RVR 2. Hypoxia 3 Tachypnea 4. CHF 5. CAD 6. HTN 7. DM 8. ZEN 9. Morbid obesity 10 Acute bronchospasm on steroids Assessment and Plan 1. Afib with RVR 2. Hypoxia 3 Tachypnea 4. CHF 5. CAD 6. HTN 7. DM 8. ZEN 9. Morbid obesity -Converted to sinus rhythm this morning. Stop Cardizem drip, switch to PO. -Transfer to floor -Monitor vitals -Monitor labs -Cardiology consult -Pulm consult -nebs and steroids -reconcile home meds -will need O2 sat testing before discharge -continue sliding scale "A" -palliative care consultation Clinical Quality Measures AMI/AHF: ASA po Prior to arrival: No DVT/VTE Risk/Contraindication: Risk Factor Score Per Nursin RFS Level Per Nursing on Admit: 4+=Very High EMA ACUNA DO Sep 01, 2016 09:53
[2016-09-01] MEDS ORDERED: ACETAMINOPHEN 325 MG TABLET/CAPLET (TYLENOL) PO PRN (10:00)
[2016-09-01] MEDS ORDERED: NITROGLYCERIN 0.3 MG PO PRN (10:00)
[2016-09-01] MEDS: PROPAFENONE 150 MG (RYTHMOL) TABLET PO SCH ×2 (10:03→22:23)
[2016-09-01] MEDS ORDERED: ARTIFICAL TEARS 0.4 ML UNIT DOSE (REFRESH PLUS) OU PRN (11:30)
--- NOTE | 2016-09-01 11:30 | Electrophysiology Consultation ---
HPI-Cardiology Cardiology Consultation: Date of Consultation 09/01/16 Date of Admission Attending Physician Ema Acuna DO Admitting Physician Shira Alcazar MD Consulting Physician Jamal LUNA MD HPI: Chief Complaint: atrial fibrillation with rapid ventricular rate this is a 65-year-old gentleman with history of morbid obesity, sleep apnea, COPD. He is a patient of Dr. Bonilla. I previously did an EP consultation during a hospitalization in May 2016. He had also presented with atrial fibrillation at that point in time. He was refractory to sotalol. We had started him on propafenone. He presented yesterday with atrial fibrillation with rapid ventricular rate, we started him on Cardizem infusion and loaded him with digoxin. He continues to be on Xarelto. This morning he has converted to sinus rhythm and denies any palpitations. Review of Systems-Cardiology Review of Systems Constitutional: No As described under HPI, No no symptoms reported, No chills, No fever, No lightheadedness, No malaise, No tiredness, No weight loss, No weight gain, No other Eyes: No As described under HPI, No no symptoms reported, No blindness, No blurred vision, No contact lenses, No drainage, No decreased acuity, No foreign body sensation, No glasses, No inflammation, No pain, No photophobia, No previous injury, No shadows, No tunnel vision, No other, No vision change Ears/Nose/Throat: No As described under HPI, No no symptoms reported, No chronic hearing loss, No epistaxis, No ear discharge, No ear pain, No loose teeth, No mouth pain, No mouth swelling, No nasal drainage, No nose pain, No recent hearing loss, No throat pain, No throat swelling, No ulcerations, No other Respiratory: No no symptoms reported, No As described under HPI, No cough, No orthopnea, No shortness of breath, No SOB with excertion, No SOB at rest, No stridor, No wheezing, No other Cardiovascular: palpitations Gastrointestinal: No no symptoms reported, No As described under HPI, No abdomen distended, No abdominal pain, No blood streaked bowels, No constipation , No diarrhea, No difficulty swallowing, No nausea, No poor appetite, No poor fluid intake, No rectal bleeding, No vomiting, No other, No nausea/vomiting/ diarrhea, No stool coloration changes Genitourinary: No no symptoms reported, No As described under HPI, No burning, No dysuria, No discharge, No frequency, No flank pain, No hematuria, No incontinence, No pain, No urgency, No other, No urine frequency changes, No urine coloration changes Musculoskeletal: No no symptoms reported, No As describe under HPI, No back pain, No gout, No joint pain, No joint swelling, No muscle pain, No muscle stiffness, No neck pain, No other Skin: No no symptoms reported, No As described under HPI, No change in color, No change in hair/nails, No dryness, No lesions, No lumps, No rash, No other, No skin related problems, No ulcerations, No rash on exposed areas, No ulcerations on exposed areas Psychiatric/Neurological: No As described under HPI, No anxiety, No depression , No emotional problems, No focal weakness, No headache, No no symptoms reported , No numbness, No other, No pre-existing deficit, No seizure, No syncope, No tingling, No tremors, No weakness All Other Systems Reviewed Negative Unless Noted: Yes FIA-[id number] Hx Patient Social History Marrital Status: single Alcohol Use: Denies Use Recreational Drug Use: No Smoking Status: Former Smoker Former smoker/When Quit: Jan 05, 1985 Recent Foreign Travel: No Recent Infectious Disease Expo: No Hospitalization with Isolation: Denies Physical Abuse Screen: No Sexual Abuse: No Immunizations Up To Date Date of Pneumonia Vaccine: May 06, 2013 Date of Influenza Vaccine: Apr 25, 2016 Past Medical History PMH As described under Assessment. 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" Home Medications Acetaminophen 325 Mg Tablet 650 MG PO Q8H PRN PRN MILD PAIN (Reported) TAKES 2 (325 MG) TABLETS Aspirin 81 Mg Tablet.dr 81 MG PO DAILY (Reported) Diltiazem HCl 240 Mg Cap.er.24h 240 MG PO DAILY (Reported) Diltiazem HCl 120 Mg Capsule.er 120 MG PO HS (Reported) Fluticasone/Vilanterol 1 Each Blst.w.dev 2 PUFF IH DAILY (Reported) Glimepiride 4 Mg Tablet 4 MG PO DAILY (Reported) Insulin Aspart 300 Units/3 Ml Solution SQ SLIDING/SCALE (Reported) 60-150 0 UNITS 151-200 4 UNITS 201-250 6 UNITS 251-300 8 UNITS 301- 350 10 UNITS 351-400 12 UNITS Insulin Detemir 100 Unit/1 Ml Insuln.pen 45 UNITS SQ BID (Reported) Moxifloxacin HCl 3 Ml Soln 1 DROP OS QID (Reported) Maximino/Polymyx B Sulf/Dexameth 3.5 Gm Oint...g. 1 APPLIC OD QID (Reported) USES ON RIGHT EYELID AFTER "LID SCRUB" Nitroglycerin 0.3 Mg Tab.subl 0.3 MG PO UD PRN PRN CHEST PAIN (Reported) NOT TO EXCEED 3 DOSES WITHIN 15 MINUTES Nystatin 1 Each Powder.ea. 1 EACH MC TID (Reported) APPLY TO ABDOMINAL FOLDS AND GROIN GUALDING AND REDNESS Pantoprazole Sodium 40 Mg Tablet.dr 40 MG PO DAILY@1400 (Reported) Pravastatin Sodium 40 Mg Tablet 40 MG PO HS (Reported) Propafenone HCl 225 Mg Tablet 225 MG PO BID (Reported) Propylene Glycol/Peg 400 15 Ml Drops 2 DROPS OD BID (Reported) Rivaroxaban 20 Mg Tablet 20 MG PO DAILY@1700 (Reported) Tiotropium [place] 1 Inh Aerp 1 CAP INH DAILY (Reported) Topiramate 50 Mg Tablet 50 MG PO HS (Reported) Vitamin A & D 60 Gm Oint TP BID (Reported) Physical Exam-Cardiology Physical Exam Vital Signs/I&O Vital Sign - Last 12Hours 08/31/16 09/01/16 09/01/16 09/01/16 23:50 00:00 00:00 00:04 Temp 97.9 Pulse 88 126 131 Resp 18 25 20 B/P 115/83 102/68 Pulse Ox 90 90 91 90 O2 Delivery NIV/Bilevel NIV/Bilevel NIV/Bilevel O2 Flow Rate 70.00 70.00 70.00 FiO2 50 09/01/16 09/01/16 09/01/16 09/01/16 00:52 01:00 01:00 02:00 Pulse 101 109 109 85 Resp 19 18 B/P 114/96 109/64 118/72 Pulse Ox 91 94 O2 Delivery NIV/Bilevel NIV/Bilevel O2 Flow Rate 70.00 70.00 09/01/16 09/01/16 09/01/16 09/01/16 02:05 03:00 04:00 04:00 Temp 98.5 Pulse 125 130 129 Resp 21 19 23 B/P 116/72 129/85 Pulse Ox 93 91 93 93 O2 Delivery NIV/Bilevel NIV/Bilevel NIV/Bilevel O2 Flow Rate 70.00 70.00 70.00 FiO2 70 09/01/16 09/01/16 09/01/16 09/01/16 04:11 05:00 06:00 06:12 Pulse 131 92 137 123 Resp 19 23 25 B/P 116/83 118/75 118/75 Pulse Ox 90 92 90 92 O2 Delivery NIV/Bilevel NIV/Bilevel O2 Flow Rate 70.00 70.00 70.00 09/01/16 09/01/16 09/01/16 09/01/16 07:00 08:00 09:00 10:02 Temp 96.9 Pulse 81 91 Resp 22 B/P 118/76 Pulse Ox 91 91 90 O2 Delivery High Flow NC High Flow NC O2 Flow Rate 6.00 6.00 6.00 Intake and Output 09/01/16 00:00 Intake Total 50 ml Output Total 125 ml Balance -75 ml Capillary Refill : Less Than 3 Seconds Constitutional: No appears stated age, No AAO x 3, No apparent distress, No PERRL, No well-developed, No well-nourished, No other HEENT: No PERRL, No normal ENT inspection, No TMs normal, No pharynx normal, No scleral icterus (R), No scleral icterus (L), No pale conjunctivae (R), No pale conjunctivae (L), No photophobia, No TM abnormal (R), No TM abnormal (L), No pharyngeal erythema, No tonsillar exudate, No other, No discharge, No EOMI, No hearing is well preserved, No hard of hearing, No oral hygience is good, No ulceration, No xanthelasmas are seen Neck: No non-tender, No full range of motion, No supple, No normal inspection, No carotid bruit, No limited range of motion, No lymphadenopathy (R), No lymphadenopathy (L), No tender lateral, No tender midline, No thyromegaly, No other, No carotid pulses are 2 + bilaterally, No with good upstrokes Respiratory: No accessory muscle use, No respiratory distress, No chest tender , No chest expansion is symmetric, No chest is bilaterally symmetric, No lungs clear to percussion, No lungs clear to auscultation, No crackles, No rhonchi, No rales, No stridor, No wheezing, No pleural rub, No other Cardiovascular: No regular rate-rhythm, No irregularly irregular, No extra beats, No parasternal heave is noted, No JVD, No edema, No bradycardia, No tachycardia, No point of maximal impulse, No cardiac thrills are palpable, No S1 and S2, No gallop/S3, No gallop/S4, No diastolic murmur, No systolic murmur, No friction rub, No click, No other Gastrointestinal: No tender, No soft, No round, No distended, No pulsatile mass , No organomegaly, No guarding, No rebound, No tenderness, No hernia, No mass, No audible bowel sounds, No abnormal bowel sounds, No abdominal bruits, No spleenomegaly, No other Rectal: deferred Extremities: No normal range of motion, No non-tender, No normal inspection, No pedal edema, No calf tenderness, No normal capillary refill, No pelvis stable , No calf tenderness, No inflammation, No pedal edema, No slow capillary refill , No swelling, No other, No abrasion, No clubbing, No cyanosis, No ecchymosis, No laceration, No no lower extremity edema bilateral, No significant edema, No tenderness, No wound Neurologic/Psychiatric: No coordinator integrated marketing II-XII nml as tested, No no motor/sensory deficits, No alert, No normal mood/affect, No oriented x 3, No abnormal cerebellar tests, No abnormal coordinator integrated marketing II-XII, No abnormal gait, No aphasia, No EOM palsy, No facial droop, No motor weakness, No sensory deficit, No depressed affect, No disoriented x 3, No other, No grossly intact, No power is 5/5 both on sides Skin: No normal color, No warm/dry, No cyanosis, No cool, No diaphoresis, No damp, No ecchymosis, No jaundice, No mottled, No pallor, No rash, No tattoos/ piercings, No ulcerations, No rash on exposed areas, No ulcerations on exposed areas, No other Data Review Labs Laboratory Tests 08/31/16 14:04: Guzman Test YES-POS, Arterial Blood Base Excess -3.6L, Arterial Blood HCO3 21L, Arterial Blood Oxygen Saturation 98, Arterial Blood Partial Pressure CO2 35, Arterial Blood Partial Pressure O2 99H, Arterial Blood Total CO2 21.7, Arterial Blood pH 7.39, Blood Gas Inspired Oxygen 10 Liters, Blood Gas Patient Temperature 98.4, Blood Gas Puncture Site RT RADIAL, Blood Gas Ventilator Setting NO 08/31/16 15:58: Troponin I < 0.30 08/31/16 16:43: Glucometer 246H 08/31/16 21:18: Glucometer 350H 09/01/16 03:58: Alanine Aminotransferase (ALT/SGPT) 23, Albumin 3.5, Alkaline Phosphatase 122, Anion Gap 12, Anisocytosis SLIGHT, Aspartate Amino Transf (AST/SGOT) 18, BUN/ Creatinine Ratio 21, Band Neutrophils 0, Basophils # (Auto) 0.0, Basophils % ( Manual) 0, Basophils (%) (Auto) 0, Blood Urea Nitrogen 18, Calcium Level 8.8, Carbon Dioxide Level 18L, Chloride Level 107, Creatinine 0.84, Eosinophils # ( Auto) 0.0, Eosinophils % (Manual) 0, Eosinophils (%) (Auto) 0, Estimat Glomerular Filtration Rate > 60, Glucose Level 300H, Hematocrit 40, Hemoglobin 13.3, Lymphocytes # (Auto) 0.4L, Lymphocytes % (Manual) 5, Lymphocytes (%) (Auto ) 7L, Magnesium Level 1.8, Mean Corpuscular Hemoglobin 28, Mean Corpuscular Hemoglobin Concent 33, Mean Corpuscular Volume 84, Mean Platelet Volume 9.7, Monocytes # (Auto) 0.1, Monocytes % (Manual) 1, Monocytes (%) (Auto) 1, Neutrophils # (Auto) 5.1, Neutrophils % (Manual) 90, Neutrophils (%) (Auto) 92H , Phosphorus Level 4.4, Platelet Count 237, Potassium Level 3.9, Reactive Lymphocytes 4, Red Blood Count 4.76, Red Cell Distribution Width 14.8H, Sodium Level 137, Total Bilirubin 0.5, Total Protein 6.1L, White Blood Count 5.5 Microbiology 08/31/16 Influenza Types A,B Antigen (ESTHELA) - Final, Complete ECG Impression ECG Comment atrial fibrillation with rapid ventricular rate on admission, currently sinus rhythm. A/P-Cardiology Assessment/Admission Diagnosis atrial fibrillation with rapid ventricular rate Plan This is a 65-year-old gentleman with history of paroxysmal atrial fibrillation, obstructive sleep apnea, cellulitis, morbid obesity. Dr. Bonilla has requested me to see the patient for a cardiac electrophysiology consultation for atrial fibrillation. converted to sinus rhythm. Discontinue Cardizem infusion in 4 hours, restart by mouth dosages of Cardizem ( same dose as home). Continue digoxin. Continue propafenone and oral antiplatelet medication. The patient was previously on sotalol but continued to have episodes of rapid atrial fibrillation. He was recently started on amiodarone but continues to have significant episodes of rapid atrial fibrillation. Previous coronary angiography in 2012 showed no significant coronary artery disease. Recent echocardiogram showed normal LV function with mildly enlarged left atrium. obstructive sleep apnea are contributors to difficult atrial fibrillation control. Since the patient does not have significant coronary artery disease or congestive heart failure,continue propafenone at current dose. I also believe that since this patient has previously been on sotalol and has been refractory to antiarrhythmic therapy we should consider catheter ablation which is a class I indication for atrial fibrillation ablation. However, due to morbid obesity and obstructive sleep apnea, results of afib ablation will be modest - therefore for now, i suggest rhythm control with propafenone, rate control with dig and ccb and stroke prevention. Thank you for your consultation. Please call me if you have any questions. Yolie Luna MD, [facility], CCDS Cardiac Electrophysiology Clinical Quality Measures AMI/AHF: ASA po Prior to arrival: No DVT/VTE Risk/Contraindication: Risk Factor Score Per Nursin RFS Level Per Nursing on Admit: 4+=Very High Jamal LUNA MD Sep 01, 2016 11:30 am
[2016-09-01] MEDS ORDERED: NON-FORMULARY MEDICATION 1 EA EA (Nystatin 1 EACH) MC SCH (13:00)
[2016-09-01] MEDS: NEO/POLY/DEX (MAXITROL) OPHTH SUSP 5 ML OD SCH ×3 (13:45→21:54)
[2016-09-01] MEDS ORDERED: PANTOPRAZOLE 40 MG (PROTONIX) TAB PO SCH (14:00)
[2016-09-01] MEDS: MICONAZOLE 2% POWDER (DESENEX AF) 90 GM TOP SCH ×2 (14:45→21:55)
[2016-09-01] MEDS ORDERED: RIVAROXABAN 20 MG TABLET (XARELTO) PO SCH (17:00)
[2016-09-01] MEDS: RT-ADVAIR HFA 115/21 MCG PER PUFF IH SCH (20:52)
[2016-09-01] MEDS ORDERED: toPIRamate 25 MG (TOPAMAX) TAB PO SCH (21:00)
[2016-09-01] MEDS ORDERED: DILTIAZEM 120 MG (CARDIZEM CD) CAP PO SCH (21:00)
[2016-09-01] MEDS ORDERED: ATORVASTATIN 10 MG (LIPITOR) TABLET PO SCH (21:00)
[2016-09-01] MEDS: inSUlin DETERMIR 1 UNIT/0.01 ML (LEVEMIR) CHARGE PER UNIT SQ SCH (21:54)
[2016-09-01] MEDS: A & D OINT 60 GM TUBE TP SCH (21:55)
[2016-09-02] VITALS: BP 139/62
[2016-09-02] MEDS: methylPREDNISolone 40 MG/ML (Solu-MEDROL) VIAL IV SCH (00:43)
[2016-09-02 04:00] VITALS: BP 118/64
--- NOTE | 2016-09-02 06:04 | Pulmonary Progress Note ---
Subjective Subjective/Events-last exam No complications noted. Pt is on BiPAP currently Exam Exam Vital Signs Date Time Temp Pulse Resp B/P Pulse Ox O2 Delivery O2 Flow Rate FiO2 09/02/16 04:00 96.4 90 20 118/64 97 High Flow NC 6.00 09/02/16 02:32 84 28 98 70.00 09/02/16 01:04 87 09/02/16 00:06 92 28 98 70.00 09/02/16 00:00 97.1 90 20 139/62 95 High Flow NC 6.00 09/01/16 22:27 101 30 98 70.00 09/01/16 20:55 95 5.00 09/01/16 20:53 95 6.00 09/01/16 20:00 96.6 95 20 126/68 96 High Flow NC 6.00 09/01/16 20:00 High Flow NC 6.00 09/01/16 18:50 91 09/01/16 16:19 95 6.00 09/01/16 16:05 96.9 94 24 146/81 95 High Flow NC 6.00 09/01/16 13:00 96 09/01/16 12:00 89 High Flow NC 6.00 09/01/16 12:00 93 28 120/81 High Flow NC 6.00 09/01/16 11:00 98 15 141/79 High Flow NC 6.00 09/01/16 10:02 90 6.00 09/01/16 10:00 89 17 138/81 High Flow NC 6.00 09/01/16 09:00 96.9 91 22 118/76 91 High Flow NC 6.00 09/01/16 08:00 87 22 101/86 NIV/Bilevel 70.00 09/01/16 08:00 91 High Flow NC 6.00 09/01/16 07:00 81 09/01/16 07:00 82 21 120/78 NIV/Bilevel 70.00 09/01/16 06:12 123 25 118/75 92 09/01/16 06:00 137 23 118/75 90 NIV/Bilevel 70.00 I & O 09/02/16 07:00 Intake Total 800 ml Output Total 550 ml Balance 250 ml General Appearance: No Apparent Distress WD/WN Chronically ill Obese Other ( breathing much more comfortably today) HEENT: PERRL/EOMI TMs Normal Normal ENT Inspection Pharynx Normal Neck: Full Range of Motion Normal Inspection Non Tender Supple Respiratory: Chest Non Tender No Accessory Muscle Use No Respiratory Distress Other (decreased breath sounds do to body habitus but lungs more clear today) Cardiovascular: Regular Rate, Rhythm No Gallop No JVD No Murmur Normal Peripheral Pulses Irregularly Irregular Other (3+ peripheral edema with skin color changes) Capillary Refill: Less Than 3 Seconds Extremity: Normal Capillary Refill Normal Range of Motion Non Tender No Calf Tenderness Pedal Edema Neurologic/Psychiatric: Alert Oriented x3 No Motor/Sensory Deficits Normal Mood/Affect Skin: Normal Color Warm/Dry Lymphatic: No Adenopathy Results Lab Laboratory Tests 08/31/16 09:35 09/01/16 03:58 Assessment/Plan Assessment/Plan Dyspnea -SVNs solumedrol - decrease to 40 Q12 Morbid obesity Afib paroxysmal ZEN Clinical Quality Measures AMI/AHF: ASA po Prior to arrival: No DVT/VTE Risk/Contraindication: Risk Factor Score Per Nursin RFS Level Per Nursing on Admit: 4+=Very High MIA BRAUN DO Sep 02, 2016 06:04
[2016-09-02] MEDS: inSUlin (REGULAR) HUMAN 1 UNIT/0.01 ML (CHARGE PER UNIT) SC SCH ×2 (06:27→12:30)
[2016-09-02] MEDS: CATHETER FLUSH 10 ML SYR IV SCH (06:28)
[2016-09-02] MEDS: RT-ADVAIR HFA 115/21 MCG PER PUFF IH SCH (07:00)
[2016-09-02] MEDS: RT-ALBUTEROL/IPRATROPIUM 3 ML (DUONEB) VIAL INH SCH (07:00)
--- NOTE | 2016-09-02 07:45 | Diagnostic Imaging Report ---
Clinical indication: Patient with chest pain. Exam: Portable chest x-ray semi-upright view. Comparisons: Chest x-ray dated 09/01/2016. Findings: Stable cardiomegaly. There is no significant pulmonary vascular congestion. There is interval groundglass consolidation of the right midlung field, right lung base which may represent lung infiltrate and also concern with right pleural effusion. Remainder of the left lungs are clear. The remainder of this exam shows no significant interval change compared to the prior study of comparison. Impression: 1.: Interval right midlung and right lung base atelectasis versus infiltrate and concern for small right pleural effusion. 2: Cardiomegaly. Dictated by: Dictated on workstation # [id number]
[2016-09-02 08:00] VITALS: BP 140/70
[2016-09-02] MEDS ORDERED: UMECLIDINIUM BROMIDE (INCRUSE ELLIPTA) 7'S IH SCH (08:00)
--- NOTE | 2016-09-02 08:32 | Cardiology Progress Note ---
Subjective Subjective/Events-last exam Patient is feeling better, breathing better, still having some cough Review of Systems General: No Chills, No Night Sweats, No Fatigue, No Malaise, No Appetite, No Other HEENT: No Head Aches, No Visual Changes, No Eye Pain, No Ear Pain, No Dysphasia , No Sinus Congestion, No Post Nasal Drip, No Sore Throat, No Other Pulmonary: Dyspnea CoughNo Pleuritic Chest Pain, No Other Cardiovascular: No: Chest Pain, Edema, Lt Headedness, Orthopnea, Other, Palpitations, Paroxysmal Noc. Dyspnea Objective-Cardiology Exam Last Set of Vital Signs Vital Signs 09/01/16 09/02/16 04:00 04:00 Temp 96.4 Pulse 90 Resp 20 B/P 118/64 O2 Delivery High Flow NC FiO2 70 Capillary Refill : Less Than 3 Seconds I&O Intake and Output 09/02/16 00:00 Intake Total 1220 ml Output Total 1200 ml Balance 20 ml Intake Oral 1020 ml IV Total 200 ml Output Urine Total 1200 ml # Voids 1 General: Alert, Oriented X3, Cooperative, Mild Distress HEENT: Atraumatic, PERRLA Neck: Supple, No JVD, No Thyromegaly, Other Lungs: Normal Air Movement, Other (bilateral rhonchi) Heart: Regular Rate, Normal S1, Normal S2, No Murmurs Abdomen: Normal Bowel Sounds, Soft, No Tenderness, No Hepatosplenomegaly, No Masses Extremities: No Clubbing, No Cyanosis, No Tenderness/Swelling, Other (erythema and edema) Skin: Other (cellulitis on the lower extremity) Neuro: Strength at 5/5 X4 Ext, Normal Tone, Sensation Intact Psych/Mental Status: Mood NL Results Lab Laboratory Tests Test 09/01/16 11:42 09/01/16 16:07 09/01/16 21:21 09/02/16 05:57 Range/Units Glucometer 335 H 350 H 434 *H 399 H 70-110 MG/DL A/P-Cardiology Admission Diagnosis CP Dyspnea PAF PAT Assessment/Plan Dyspnea, acute respiratory insufficiency. Most recent 2-D echocardiogram in February 2016 showing ejection fraction 50-55 percent, normal LV size and function. improving at this time. Coronary artery disease, mild nonobstructive disease per cardiac catheterization done May 07, 2013. Currently asymptomatic. Most recent stress test June 2015 revealed abnormal EKG during Lexiscan injection, resolved spontaneously. No significant ischemia or infarct. EF 71 percent. Paroxysmal atrial fibrillation, he was seen in the past by Dr. Mosher, failed medical treatment in the past with sotalol and amiodarone. Was seen in Consultation by Dr. Bell during his hospital stay in May 2016. Maintained on Propafenone, Cardizem and Xarelto. S/p LinQ implantation with no recent episode of afib. Telemetry revealed tachycardia with HR in the 140's. Was given IV adenosie revealing 2:1 atrial flutter. converted to sinus rhythm yesterday and still in sinus rhythm, continue current meds and monitor Hypertension, continue to monitor blood pressure Hyperlipidemia, on Pravachol, monitor lipids Lower extremity cellulitis, patient reports low grade fever over the past week. Further management per medical services. Peripheral edema- continue to diurese. [id number] score is 3, yearly risk of stroke without oral anticoagulation 3.2 percent. Patient is maintained on Xarelto Syncope, reporting improvement, continue to monitor. Still having occasional dizziness, no syncope was reported. Obstructive sleep apnea, COPD. Obesity, educated on weight loss. BMI is 55. Patient need to start on exercise and weight loss program. DM, followed and managed by primary care physician. Gastroesophageal reflux disease. Currently asymptomatic. Continue to monitor. Carotid stenosis, mild per ultrasound done in February 2016, continue to monitor. Clinical Quality Measures AMI/AHF: ASA po Prior to arrival: No DVT/VTE Risk/Contraindication: Risk Factor Score Per Nursin RFS Level Per Nursing on Admit: 4+=Very High GABRIELA MARTINEZ MD Sep 02, 2016 08:32
[2016-09-02] MEDS ORDERED: methylPREDNISolone 40 MG/ML (Solu-MEDROL) VIAL IV SCH (09:00)
[2016-09-02] MEDS ORDERED: GLIMEPIRIDE 4 MG (AMARYL) TAB PO SCH (09:00)
[2016-09-02] MEDS ORDERED: DIGOXIN 0.25 MG (LANOXIN) TAB PO SCH (09:00)
[2016-09-02] MEDS: DILTIAZEM 240 MG (CARDIZEM CD) CAP PO SCH (10:29)
[2016-09-02] MEDS: inSUlin DETERMIR 1 UNIT/0.01 ML (LEVEMIR) CHARGE PER UNIT SQ SCH (10:30)
[2016-09-02] MEDS: ASPIRIN E.C. 81 MG (ECOTRIN) TAB PO SCH (10:30)
[2016-09-02] MEDS: PROPAFENONE 150 MG (RYTHMOL) TABLET PO SCH (10:35)
[2016-09-02] MEDS: MICONAZOLE 2% POWDER (DESENEX AF) 90 GM TOP SCH (10:35)
[2016-09-02] MEDS: NEO/POLY/DEX (MAXITROL) OPHTH SUSP 5 ML OD SCH ×2 (10:36→12:33)
[2016-09-02] MEDS: A & D OINT 60 GM TUBE TP SCH (10:36)
[2016-09-02] MEDS ORDERED: IPRA3AMP INH (11:07)
[2016-09-02] MEDS ORDERED: DIGO250T15 PO (11:07)
[2016-09-02] MEDS ORDERED: PRED10TA22 PO (11:07)
[2016-09-02] MEDS ORDERED: FURO-125 PO (11:09)
[2016-09-02] MEDS ORDERED: INSU100V16 SQ (11:16)
[2016-09-02] MEDS ORDERED: NYST1000 PO (11:17)
--- NOTE | 2016-09-02 11:24 | Discharge Inst-Skilled Nursing ---
Discharge Inst-Skilled NF Patient Instructions Patient Problems: Atrial fibbrillation with RVR Chronic ZEN and COPD Morbid obesity DM out of control Consult/Follow Up/Orders Skilled NF Admit to: [facility] [place] () I certify that SNF services are required to be given on an inpatient basis because of the above named patient's need for usp care on a continuing basis for the conditions(s) for which he/she was receiving inpatient hospital services prior to his/her transfer to the SNF. Long Term Facility Order: Nursing Services, Senior Hardware Design Engineer-Evaluate & Treat, Physical Therapy-Evaluate & Treat, Speech Language-Evaluate & Treat Discharge Diet: Low Sodium Diet, ADA Diet Daily Activity as Tolerated: Yes New & Resume Previous Orders Ema Acuna Sep 02, 2016 11:24 EMA ACUNA DO Sep 02, 2016 11:24
--- NOTE | 2016-09-02 11:26 | Discharge Summary-Hospitalist ---
Diagnosis/Chief Complaint Date of Admission Aug 31, 2016 at 11:10 Date of Discharge Discharge Date: Sep 02, 2016 Admission Diagnosis 1. Afib with RVR 2. Hypoxia 3 Tachypnea 4. CHF 5. CAD 6. HTN 7. DM 8. ZEN 9. Morbid obesity 10 Acute bronchospasm on steroids Discharge Diagnosis 1. Afib with RVR 2. Hypoxia 3 Tachypnea 4. CHF 5. CAD 6. HTN 7. DM 8. ZEN 9. Morbid obesity -Converted to sinus rhythm this morning. Stop Cardizem drip, switch to PO. -Transfer to floor -Monitor vitals -Monitor labs -Cardiology consult -Pulm consult -nebs and steroids -reconcile home meds -will need O2 sat testing before discharge -continue sliding scale "A" -palliative care consultation Reason Hospital Visit/Course CC: Shortness of breath HPI: Mr. Renteria is a 65yoWM with a PMH of DM, HTN, CAD, CHF, and ZEN who was brought to the hospital by the correction after being short of breath with chest pain yesterday. He described his pain as "like getting kicked in the chest ". The pain was centered in the sternum, and did not radiate anywhere. He did not have any associated syncope, diaphoresis, or dizziness. He was short of breath at this time. He was given a nitroglycerin in the ED and the chest pain went away. He has not had a repeat of chest pain since then. He was found to be in Afib with RVR with the rate in the 130's. He was admitted to the ICU on a Cardizem drip. He converted back to sinus rhythm around 0700 on 09/01/16 and was started on PO medication so he could be transferred to the floor. He has been feeling much better this morning. He feels like he can catch his breath. RN interview: Patient was on BiPap overnight requiring 15L of oxygen supplementation. By this morning after he converted he was doing much better and was off BiPap only needing 6L via NC. Patient's PCP is Dr. Alcazar. He lives in [place] currently. 09/02/16 note: Pt doing well except for thrush in mouth and throat. We'll continue treatment with nystatin powder and cream in the groin area in addition to adding nystatin swish and swallow CPAP was not working well so RT contacted DME and will assure it is functioning properly and then will continue the current settings. Very difficult to understand due to speech impediment No pain is reported No BM so will order meds to help with that. no fever, vitals stable, pleasant, sitting in chair Irregular irregular rhythm, clear to all sedation bilaterally with distant breath sounds due to habitus Trace edema lower extremities Hospital course Patient had an uneventful hospital course he was admitted to the ICU in respiratory failure due to atrial fibrillation with rapid ventricular response. Cardiology was consulted and Dr. Cordero was consulted for pulmonary consultation and placed on noninvasive ventilator support along with nebulizer treatments and oxygen. Echocardiogram showed ejection fraction of 71 percent so Lasix was discontinued and patient was placed on Solu-Medrol for exacerbation of bronchospasm. Overall he improved rapidly and since he was from a correction we will send him back for skilled therapy while checking BMP and digoxin level on Monday due to initiation of low dose Lasix every other day in addition to digitoxin of 0.25 mg daily. I did have palliative care see the patient and he continues to want full resuscitation so we'll note that but overall prognosis is extremely poor due to the morbid obesity and severe sleep apnea. 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" Vitals & I&Os Vital Signs Date Time Temp Pulse Resp B/P Pulse Ox O2 Delivery O2 Flow Rate FiO2 09/02/16 08:00 95.9 91 18 140/70 95 High Flow NC 6.00 09/01/16 04:00 70 Hospital Course Labs (last 24 hrs) Laboratory Tests 09/01/16 11:42: Glucometer 335H 09/01/16 16:07: Glucometer 350H 09/01/16 21:21: Glucometer 434*H 09/02/16 05:57: Glucometer 399H Microbiology 08/31/16 Blood Culture - Preliminary, Resulted No growth 08/31/16 Influenza Types A,B Antigen (ESTHELA) - Final, Complete Pending Labs Laboratory Tests 09/02/16 05:57: Glucometer 399 Discharge Home Medications: Active Scripts Active Nystatin 100,000 Unit/1 Ml Oral.susp 100,000 Unit PO QID 7 Days Novolog (Insulin Aspart) 100 Unit/1 Ml Susp 15 Unit SQ AC 14 Days Lasix (Furosemide) 20 Mg Tablet 20 Mg PO Q48H 14 Days Prednisone 10 Mg Tab.ds.pk 10 Mg PO DAILY Take 6 tabs(60mg)daily,decrease by 1 tab(10MG)daily. Digox (Digoxin) 250 Mcg Tablet 0.25 Mg PO DAILY 14 Days Iprat-Albut 0.5-3(2.5) mg/3 ml (Ipratropium/Albuterol Sulfate) 3 Ml Ampul.neb 3 Ml INH RTQ6HR 30 Days Reported Systane 0.3-0.4% Eye Drops (Propylene Glycol/Peg 400) 15 Ml Drops 2 Drops OD BID Propafenone HCl 225 Mg Tablet 225 Mg PO BID Vigamox (Moxifloxacin HCl) 3 Ml Soln 1 Drop OS QID Plugxn-Ywkhe-Ulhkpqo Eye Ointm (Maximino/Polymyx B Sulf/Dexameth) 3.5 Gm Oint...g. 1 Applic OD QID USES ON RIGHT EYELID AFTER "LID SCRUB" Diltiazem ER (Diltiazem HCl) 120 Mg Capsule.er 120 Mg PO HS Glimepiride 4 Mg Tablet 4 Mg PO DAILY Acetaminophen 325 Mg Tablet 650 Mg PO Q8H PRN TAKES 2 (325 MG) TABLETS Aspirin EC (Aspirin) 81 Mg Tablet.dr 81 Mg PO DAILY Nitrostat (Nitroglycerin) 0.3 Mg Tab.subl 0.3 Mg PO UD PRN NOT TO EXCEED 3 DOSES WITHIN 15 MINUTES Nystatin 1 Each Powder.ea. 1 Each MC TID APPLY TO ABDOMINAL FOLDS AND GROIN GUALDING AND REDNESS Levemir Flextouch (Insulin Detemir) 100 Unit/1 Ml Insuln.pen 45 Units SQ BID Vitamin A & D Ointment (Vitamin A & D) 60 Gm Oint TP BID Xarelto (Rivaroxaban) 20 Mg Tablet 20 Mg PO DAILY@1700 Topiramate 50 Mg Tablet 50 Mg PO HS Pravastatin Sodium 40 Mg Tablet 40 Mg PO HS Breo Ellipta 100-25 Mcg INH (Fluticasone/Vilanterol) 1 Each Blst.w.dev 2 Puff IH DAILY Novolog Flexpen (Insulin Aspart) 300 Units/3 Ml Solution SQ SLIDING/SCALE 60-150 0 UNITS 151-200 4 UNITS 201-250 6 UNITS 251-300 8 UNITS 301-350 10 UNITS 351-400 12 UNITS Diltiazem 24Hr Cd (Diltiazem HCl) 240 Mg Cap.er.24h 240 Mg PO DAILY Spiriva (Tiotropium [place]) 1 Inh Aerp 1 Cap INH DAILY Pantoprazole Sodium 40 Mg Tablet.dr 40 Mg PO DAILY@1400 Instructions to patient/family Please see electonic discharge instructions given to patient. Clinical Quality Measures AMI/AHF: ASA po Prior to arrival: No DVT/VTE Risk/Contraindication: Risk Factor Score Per Nursin RFS Level Per Nursing on Admit: 4+=Very High MANDI COSBY DO Sep 02, 2016 11:26
[2016-09-02] MEDS ORDERED: NYST15CR TP (11:27)
[2016-09-02] MEDS ORDERED: NYST1POW22 MC (11:27)
[2016-09-02] MEDS ORDERED: LACTULOSE SYRUP 10GM/15ML (ENULOSE) 30ML UDC PO NR (11:30)
[2016-09-02] MEDS ORDERED: SENN8.6T17 PO (11:31)
[2016-09-02 12:00] VITALS: BP 138/77
== END 2016-09-02 14:00 | DRG 309 ==
LOC: EDUNIT# 09:19 → ER 09:21 → ICU 11:10 → 4TH 09-01 13:30
PROVIDERS: ADMIT Internal Medicine; ATTEND Internal Medicine
DX: I48.0 Paroxysmal atrial fibrillation (principal); I48.92 Unspecified atrial flutter; R07.9 Chest pain, unspecified; I10 Essential (primary) hypertension; E66.2 Morbid (severe) obesity with alveolar hypoventilation; Z68.43 Body mass index [BMI] 50.0-59.9, adult; L03.115 Cellulitis of right lower limb; L03.116 Cellulitis of left lower limb; I50.9 Heart failure, unspecified; R09.02 Hypoxemia; J44.9 Chronic obstructive pulmonary disease, unspecified; R06.82 Tachypnea, not elsewhere classified; J45.909 Unspecified asthma, uncomplicated; E11.9 Type 2 diabetes mellitus without complications; I25.10 Atherosclerotic heart disease of native coronary artery without angina pectoris; E78.5 Hyperlipidemia, unspecified; F79 Unspecified intellectual disabilities; I87.8 Other specified disorders of veins; M17.0 Bilateral primary osteoarthritis of knee; M54.9 Dorsalgia, unspecified; K21.9 Gastro-esophageal reflux disease without esophagitis; R55 Syncope and collapse; I65.29 Occlusion and stenosis of unspecified carotid artery; Z79.84 Long term (current) use of oral hypoglycemic drugs; Z79.01 Long term (current) use of anticoagulants; Z87.891 Personal history of nicotine dependence
CPT/HCPCS: 36415; 71010; 71275; 80053; 82150; 82550; 82553; 82805; 82962; 83605; 83690; 83735; 83880; 84100; 84484; 85007; 85025; 85027; 85610; 85730; 87040; 87804; 93005; 93041; 93970; 94640; 94660; 94760; 94761; 96372; 96374; 96375

== ENCOUNTER 2016-09-22 07:08 | Inpatient (IN) | payer MEDICARE, MEDICAID ==
[2016-09-22] VITALS (15 sets, daily range): BP systolic 105–140; BP diastolic 62–88
[~2016-09-22] VITALS: Ht 167.6 cm; Wt 163.8 kg
[~2016-09-22 07:08] MED LIST changes: +ACET325T49 PO; +DIGO250T15 PO; +DILT120C85 PO; +FURO-125 PO; +IPRA3AMP INH; +NEO/3.5O18 OD; +NYST1000 PO; +NYST15CR TP; +PRED10TA22 PO; +PROP15DR OD; +PROP225T2 PO; +SENN8.6T17 PO; +VIGAMOX OS
--- OUTSIDE RECORDS SUMMARY | 2016-09-22 07:14 | XMS REPORT | Continuity of Care Document ---
Author Author [facility] Organization [facility] Address Unknown Phone Unavailable Care Team Providers Care Panel Cutter Name Role Phone PCP Unavailable Source Comments Some departments are not documenting in the electronic medical record. If you do not see the information that you expected, contact Release of Information in the Health Information Management department at [phone] for further assistance in locating additional records.[facility] Active Allergies and Adverse Reactions Not on [...]
[2016-09-22] MEDS ORDERED: RT-ALBUTEROL/IPRATROPIUM 3 ML (DUONEB) VIAL INH ONE ×2 (07:30→07:45)
[2016-09-22] MEDS ORDERED: RT-ALBUTEROL SULF 2.5 MG/3 ML PRE-MIX VIAL INH STA (07:40)
[2016-09-22 07:45] LABS: BASOPHILS % (AUTO) 0 % (0-10); EOSINOPHILS % (AUTO) 1 % (0-10); LYMPHOCYTES # (AUTO) 0.6 X 10^3 (1.0-4.0); LYMPHOCYTES % (AUTO) 8 % (12-44); MEAN CORPUSCULAR HEMOGLOBIN 28 PG (25-34); MEAN CORPUSCULAR HGB CONC 33 G/DL (32-36); MEAN CORPUSCULAR VOLUME 85 FL (80-99); MEAN PLATELET VOLUME 9.6 FL (7.4-10.4); MONOCYTES # (AUTO) 0.5 X 10^3 (0.0-1.0); MONOCYTES % (AUTO) 7 % (0-12); NEUTROPHILS # (AUTO) 6.1 X 10^3 (1.8-7.8); NEUTROPHILS % (AUTO) 84 % (42-75); PLATELET COUNT 189 10^3/uL (130-400); RED BLOOD COUNT 4.69 10^6/uL (4.35-5.85); RED CELL DISTRIBUTION WIDTH 15.4 % (10.0-14.5); WHITE BLOOD COUNT 7.3 10^3/uL (4.3-11.0)
[2016-09-22] MEDS ORDERED: PIPERACILLIN SODIUM/TAZOBACTAM 4.5 GM in NS (IVPB) 100 ML IV ONE (07:45)
[2016-09-22] MEDS ORDERED: DILTIAZEM 25 MG/5 ML INJ (CARDIZEM) VIAL IVP ONE (07:45)
[2016-09-22] MEDS ORDERED: DILTIAZEM DRIP 100 MG in SODIUM CHLORIDE (ADD-VANTAGE) 100 ML IV SCH (07:45)
--- NOTE | 2016-09-22 07:52 | ED General ---
General Chief Complaint: Respiratory Problems Stated Complaint: SOA Source of Information: Patient, Caregiver, Prison Records, Old Records History of Present Illness Time Seen by Provider: 07:10 Initial Comments This pleasant 65-year-old MR murillo presents to the emergency room with respiratory distress, wheezing, cough, and fever 100.4. [facility] staff report that he was breathing well last night. Patient denies any pain. Review of his chart reveals admission from August 31 through September 02 for A. fib with RVR, CHF and COPD. He is anticoagulated with Xarelto and on oral digoxin and Cardizem. 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" Home Medications Acetaminophen 325 Mg Tablet 650 MG PO Q8H PRN PRN MILD PAIN (Reported) TAKES 2 (325 MG) TABLETS Aspirin 81 Mg Tab.chew 81 MG PO DAILY (Reported) Digoxin 250 Mcg Tablet 250 MCG PO DAILY (Reported) Diltiazem HCl 240 Mg Cap.er.24h 240 MG PO BID (Reported) Fluticasone Propionate 16 Gm [place].susp 2 SPRAYS NSEACH DAILY PRN PRN CONGESTION (Reported) Fluticasone/Vilanterol 1 Each Blst.w.dev 2 PUFF IH DAILY (Reported) Glimepiride 4 Mg Tablet 4 MG PO DAILY (Reported) Guaifenesin/Codeine Phosphate 118 Ml Liquid 5 ML PO Q6H PRN PRN CONGESTION/ COUGH (Reported) Insulin Aspart 300 Units/3 Ml Solution 15 UNITS SQ AC (Reported) Insulin Detemir 100 Unit/1 Ml Insuln.pen 45 UNITS SQ BID (Reported) Ipratropium/Albuterol Sulfate 3 Ml Ampul.neb 3 ML IH Q6H (Reported) Mineral Oil/Petrolatum,White 1 Gm Oint...g. OD QID (Reported) USES IN BETWEEN NEOMYCIN/POLY/DEXAM Maximino/Polymyx B Sulf/Dexameth 3.5 Gm Oint...g. 1 APPLIC OD QID (Reported) USES ON RIGHT EYELID AFTER "LID SCRUB" Nitroglycerin 0.3 Mg Tab.subl 0.3 MG PO UD PRN PRN CHEST PAIN (Reported) NOT TO EXCEED 3 DOSES WITHIN 15 MINUTES Nystatin 60 Gm Powder TP TID (Reported) APPLY TO ABDOMINAL FOLD AND GROIN Pantoprazole Sodium 40 Mg Tablet.dr 40 MG PO DAILY@1400 (Reported) Pravastatin Sodium 40 Mg Tablet 40 MG PO HS (Reported) Propafenone HCl 225 Mg Tablet 225 MG PO BID (Reported) Propylene Glycol/Peg 400 15 Ml Drops 2 DROPS OD BID (Reported) Rivaroxaban 20 Mg Tablet 20 MG PO DAILY@1700 (Reported) Sennosides 8.6 Mg Tablet 8.6 MG PO BID (Reported) Tiotropium [place] 1 Inh Aerp 1 CAP INH DAILY (Reported) Topiramate 50 Mg Tablet 50 MG PO HS (Reported) Vitamin A & D 60 Gm Oint TP BID (Reported) Constitutional: see HPI EENTM: no symptoms reported Respiratory: see HPI Cardiovascular: see HPI Gastrointestinal: no symptoms reported Genitourinary: no symptoms reported Musculoskeletal: no symptoms reported Skin: other (chronic skin changes and erythema to the lower extremities) Psychiatric/Neurological: No Symptoms Reported Hematologic/Lymphatic: No Symptoms Reported Past Chnqzmw-Jlbwlx-Zowxpc Hx Patient Social History Former Smoker/When Quit: Jan 05, 1985 Recent Hopitalizations: Yes (HEART PROBLEMS) Immunizations Up To Date Date of Pneumonia Vaccine: May 06, 2013 Date of Influenza Vaccine: Apr 25, 2016 Seasonal Allergies Seasonal Allergies: Yes Surgeries HX Surgeries: Yes (patient unable to recall) Surgeries: Abdominal, Cardiac Respiratory Hx Respiratory Disorders: Yes Respiratory Disorders: Asthma, Sleep Apnea, COPD Cardiovascular Hx 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) Cardiac Disorders: Atrial Fibrillation (paroxysmal), Chronic Edema/Swelling, Coronary Artery Disease, Heart Attack, High Cholesterol, Hypertension, Palpitations Neurological Hx Neurological Disorders: Yes (MENTAL RETARDATION) Neurological Disorders: Developmental Disorder Reproductive System Hx Reproductive Disorders: No Genitourinary Hx Genitourinary Disorders: No Gastrointestinal Hx Gastrointestinal Disorders: Yes Gastrointestinal Disorders: Gastroesophageal Reflux Musculoskeletal Hx Musculoskeletal Disorders: Yes (chronic bilateral knee pain) Musculoskeletal Disorders: Arthritis, Chronic Back Pain Endocrine Hx Endocrine Disorders: Yes (MORBID OBESITY) Endocrine Disorders: Diabetes, Non-Insulin dep HEENT HX ENT Disorders: No Hearing Impairment: Hard of Hearing Cancer Hx Cancer: No Psychosocial Hx Psychiatric Problems: No Integumentary HX Skin/Integumentary Disorder: Yes (CELLULITIS) Blood Transfusions Hx Blood Disorders: No Family Medical History Significant Family History: Diabetes Physical Exam-Suspected Sepsis Physical Exam Vital Signs Vital Sign - Last 12Hours 09/22/16 07:08 Temp 100.1 Pulse 140 Resp 40 B/P 140/78 Pulse Ox 94 O2 Delivery Nasal Cannula O2 Flow Rate 3 Capillary Refill : General Appearance: No Apparent Distress WD/WN Moderate Distress Obese HEENT: PERRL/EOMI Normal ENT Inspection Pharynx Normal Neck: Normal Inspection Respiratory: No Respiratory Distress Accessory Muscle Use Wheezing Cardiovascular: Irregularly Irregular Tachycardia Other (marked pitting edema equal bilaterally) Gastrointestinal: Non Tender Soft Extremity: Pedal Edema Other (Marked bilateral pitting edema with chronic erythematous skin changes) Neurologic/Psychiatric: Alert Oriented x3 No Motor/Sensory Deficits 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 Norm as Tested Other (MR deficits at baseline) Skin: normal color warm/dry Progress/Results/Core Measures Suspected Sepsis SIRS Temperature: Pulse: Respiratory Rate: Laboratory Tests 09/22/16 07:20: White Blood Count 7.3 Blood Pressure / Mean: Laboratory Tests 09/22/16 07:20: Creatinine 0.82, INR Comment 1.4, Platelet Count 189, Total Bilirubin 1.0 Results/Orders Lab Results Laboratory Tests Test 09/22/16 07:20 09/22/16 09:23 09/22/16 14:42 Range/Units Activated Partial Thromboplast Time 34 24-35 SEC Alanine Aminotransferase (ALT/SGPT) 15 0-55 U/L Albumin 3.6 3.2-4.5 G/DL Alkaline Phosphatase 99 40-136 U/L Anion Gap 15 H 5-14 MMOL/L Anisocytosis SLIGHT Aspartate Amino Transf (AST/SGOT) 13 5-34 U/L B-Type Natriuretic Peptide 48.1 <100.0 PG/ML BUN/Creatinine Ratio 13 Band Neutrophils 7 % Basophils # (Auto) 0.0 0.0-0.1 10^3/uL Basophils % (Manual) 0 % Basophils (%) (Auto) 0 0-10 % Blood Urea Nitrogen 11 7-18 MG/DL C-Reactive Protein High Sensitivity 21.08 H 0.00-0.50 MG/DL Calcium Level 8.8 8.5-10.1 MG/DL Carbon Dioxide Level 18 L 21-32 MMOL/L Chloride Level 106 98-107 MMOL/L Creatinine 0.82 0.60-1.30 MG/DL Digoxin Level 0.36 L 0.80-2.00 NG/ML Eosinophils # (Auto) 0.0 0.0-0.3 10^3/uL Eosinophils % (Manual) 0 % Eosinophils (%) (Auto) 1 0-10 % Estimat Glomerular Filtration Rate > 60 Glucose Level 251 H 70-105 MG/DL Hematocrit 40 40-54 % Hemoglobin 13.2 L 13.3-17.7 G/DL INR Comment 1.4 0.8-1.4 Lactic Acid Level 2.2 *H 1.6 0.5-2.0 MMOL/L Lymphocytes # (Auto) 0.6 L 1.0-4.0 X 10^3 Lymphocytes % (Manual) 7 % Lymphocytes (%) (Auto) 8 L 12-44 % Magnesium Level 1.5 L 1.8-2.4 MG/DL Mean Corpuscular Hemoglobin 28 25-34 PG Mean Corpuscular Hemoglobin Concent 33 32-36 G/DL Mean Corpuscular Volume 85 80-99 FL Mean Platelet Volume 9.6 7.4-10.4 FL Monocytes # (Auto) 0.5 0.0-1.0 X 10^3 Monocytes % (Manual) 5 % Monocytes (%) (Auto) 7 0-12 % Neutrophils # (Auto) 6.1 1.8-7.8 X 10^3 Neutrophils % (Manual) 81 % Neutrophils (%) (Auto) 84 H 42-75 % Platelet Count 189 130-400 10^3/uL Potassium Level 3.8 3.6-5.0 MMOL/L Prothrombin Time 17.0 H 12.2-14.7 SEC Red Blood Count 4.69 4.35-5.85 10^6/uL Red Cell Distribution Width 15.4 H 10.0-14.5 % Sodium Level 139 135-145 MMOL/L Total Bilirubin 1.0 0.1-1.0 MG/DL Total Protein 6.4 6.4-8.2 G/DL Troponin I < 0.30 <0.30 NG/ML White Blood Count 7.3 4.3-11.0 10^3/uL Guzman Test YES-POS Arterial Blood Base Excess -3.1 L -2.5-2.5 MMOL/L Arterial Blood HCO3 20 L 23-27 MMOL/L Arterial Blood Oxygen Saturation 97 94-100 % Arterial Blood Partial Pressure CO2 32 L 35-45 MMHG Arterial Blood Partial Pressure O2 93 79-93 MMHG Arterial Blood Total CO2 21.4 21.0-31.0 MMOL/L Arterial Blood pH 7.42 7.37-7.43 Blood Gas Inspired Oxygen 40%BIPAP Blood Gas Patient Temperature 98.7 Blood Gas Puncture Site RT RADIAL Blood Gas Ventilator Setting NO Micro Results Microbiology 09/22/16 Influenza Types A,B Antigen (ESTHELA) - Final, Complete My Orders Orders-JACKELYN RODRIGUEZ MD Albuterol/Ipra Inhalation Soln (Duoneb I (09/22/16 07:30) Svn Sm Volume Nebulizer Rt-Rfs (09/22/16 07:17) Cbc With Automated Diff (09/22/16 07:17) Comprehensive Metabolic Panel (09/22/16 07:17) Lactic Acid Analyzer (09/22/16 07:17) Blood Culture (09/22/16 07:17) Sputum Culture (09/22/16 07:17) Ua Culture If Indicated (09/22/16 07:17) Protime With Inr (09/22/16 07:17) Partial Thromboplastin Time (09/22/16 07:17) Chest 1 View, Ap/Pa Only (09/22/16 07:17) O2 (09/22/16 07:17) Saline Lock/Iv-Start (09/22/16 07:17) Saline Lock/Iv-Start (09/22/16 07:17) Vital Signs Adult Sepsis Patie Q1HR (09/22/16 07:17) Remove Rings In Anticipation O (09/22/16 07:17) BNP (09/22/16 07:17) Hs C Reactive Protein (09/22/16 07:17) Troponin I (09/22/16 07:17) Ekg Tracing (09/22/16 07:17) Monitor-Rhythm Ecg Trace Only (09/22/16 07:17) Digoxin (09/22/16 07:31) Magnesium (09/22/16 07:32) Influenza A And B Antigens (09/22/16 07:32) Piperacillin Sodium/Tazobactam (Zosyn Vi (09/22/16 07:45) Sodium Chloride (Ad... W/Diltiazem Drip (09/22/16 07:45) Diltiazem Injection (Cardizem Injection) (09/22/16 07:45) Albuterol Pre-Mix Nebs (Rt) (Proventil P (09/22/16 07:40) Albuterol/Ipra Inhalation Soln (Duoneb I (09/22/16 07:45) Bipap Rt-Rfs (09/22/16 07:40) Manual Differential (09/22/16 07:20) Methylprednisolone Sod Succ (Solu-Medrol (09/22/16 08:30) Picc Insertion .on Insertion (09/22/16 08:35) Digoxin Injection (Lanoxin Injection) (09/22/16 09:00) Chest 1 View, Ap/Pa Only (09/22/16 08:58) Cath [id number] (09/22/16 ) Amb Us Guide Vascular Access (09/22/16 ) Medications Given in ED Current Medications Medications Dose Ordered Sig/Neo Route Start Time Stop Time Status Last Admin Dose Admin Digoxin 0.5 mg ONCE ONCE IV 09/22/16 09:00 09/22/16 09:01 DC 09/22/16 09:20 0.5 MG Diltiazem HCl 10 mg ONCE ONCE IVP 09/22/16 07:45 09/22/16 07:46 DC 09/22/16 07:48 10 MG Methylprednisolone Sodium Succinate 40 mg ONCE ONCE IV 09/22/16 08:30 09/22/16 08:31 DC 09/22/16 09:20 40 MG Piperacillin Sod/ Tazobactam Sod/ Sodium Chloride 100 ml @ 200 mls/hr ONCE ONCE IV 09/22/16 07:45 09/22/16 08:14 DC 09/22/16 07:53 200 MLS/HR Vital Signs/I&O Vital Sign - Last 12Hours 09/22/16 09/22/16 09/22/16 09/22/16 07:39 07:51 07:58 10:25 Temp 100.1 Pulse 140 129 125 Resp 45 36 28 B/P 140/78 Pulse Ox 93 95 95 O2 Flow Rate 4 4.00 40 09/22/16 09/22/16 09/22/16 09/22/16 10:35 10:42 11:19 12:42 Temp 100.7 Pulse 124 123 122 Resp 26 38 27 B/P 108/63 Pulse Ox 98 98 94 95 O2 Delivery NIV Bilevel O2 Flow Rate 40.00 2/16/17 2/16/17 2/16/17 2/16/17 13:00 13:43 14:51 16:00 Temp 99.2 Pulse 103 98 111 Resp 26 B/P 118/67 Pulse Ox 94 09/22/16 09/22/16 16:28 18:47 Pulse 87 83 Resp 24 21 Pulse Ox 94 94 Capillary Refill : Progress Note #1: Time: 07:51 Progress Note Patient has fever and respiratory distress. Sepsis is suspected. Initial DuoNeb treatment did not improve his breathing much. BiPAP and an hour-long treatment have been ordered. Respiratory therapy is working with patient now. Atrial fibrillation with RVR was discovered on telemetry and EKG. Cardizem drip is being initiated. Septic workup is underway. Zosyn has been ordered for initial antibiotic therapy. Progress Note #2: Time: 08:56 Progress Note Patient has been admitted and is awaiting bed. He remains on Cardizem drip which is being titrated up due to persistent tachycardia. Dr. Bonilla requests digoxin 0.5 mg IV be administered due to the low serum digoxin level. PICC line is presently being inserted. Zosyn will be administered as soon as PICC line is in place. Respiratory status has moderately improved with BiPAP and hour-long breathing treatment in progress. Patient remains alert and interactive. ECG Initial ECG Impression Date: Sep 22, 2016 Initial ECG Impression Time: 07:37 Initial ECG Rate: 134 Initial ECG Rhythm: A Fib/Flutter Initial ECG Impression: Atrial Fibrillation w/RVR Comment Atrial fibrillation with rapid ventricular response with no ST elevation or depression. Diagnostic Imaging Diagonstic Imaging: Xray Plain Films/CT/US/NM/MRI: chest Comments Chest x-ray viewed by me and report reviewed. See report below: NAME: GETACHEW KIM [facility] REC#: [id number] PT STATUS: REG ER : 1950 PHYSICIAN: JACKELYN RODRIGUEZ MD ADMIT DATE: 09/22/16/ER Signed Date of Exam: 09/22/16 CHEST 1 VIEW, AP/PA ONLY Portable upright radiograph of the chest. INDICATION: Shortness of breath. COMPARISON: 09/02/16. FINDINGS: The heart size is moderately enlarged. There is pulmonary vascular congestion. The right perihilar infiltrates are seen. No effusion or pneumothorax. The mediastinum and grace appear unremarkable. bioinformatician device is seen. IMPRESSION: Right perihilar infiltrates probably related to pneumonia. Cardiomegaly with vascular congestion. Dictated by: Dictated on workstation # [id number] Dict: 09/22/16804 Trans: 09/22/16816 GALINA [id number] Interpreted by: RICHARD CORREA MD Electronically signed by:RICHARD CORREA MD 09/22/16819 Departure Communication Time/Spoke to Admitting Phy: 08:25 Communication Case was reviewed with Dr. Acuna who agrees with admission to the ICU for treatment of sepsis, A. fib with RVR, and COPD exacerbation. She agrees with cardiology and pulmonology consultation. Time/Spoke to Consulting Physi: 08:30 Communication/Consulting Case was reviewed with Dr. Cordero who agrees with broad-spectrum antibiotic coverage due to recent admission. He requests Solu-Medrol 40 mg IV every 6. The first dose was ordered in the emergency room. He would like PICC line placement due to need for multiple medications with Cardizem drip. Dr. Bonilla was also consulted and agrees with Cardizem drip and ICU admission. He is presenting to the emergency room to evaluate the patient. Impression Impression: Primary Impression: Sepsis Qualified Code: A41.9 - Sepsis, unspecified organism Additional Impressions: Pneumonia Qualified Code: J18.9 - Pneumonia, unspecified organism Respiratory distress COPD exacerbation Atrial fibrillation with RVR Hypomagnesemia Disposition: ADMITTED INPATIENT Condition: Improved Decision to Admit Reason: Admit from ER (General) Decision to Admit/Date: Sep 22, 2016 Time/Decision to Admit Time: 07:20 Departure-Patient Inst. Referrals: EDEN OLSON MD (PCP/Family) Primary Care Physician JACKELYN RODRIGUEZ MD Sep 22, 2016 07:52
[2016-09-22 07:58] LABS: INR 1.4 (0.8-1.4)
[2016-09-22 08:07] LABS: ANISOCYTOSIS SLIGHT; BAND NEUTROPHILS 7 %; BASOPHILS % (MANUAL) 0 %; EOSINOPHILS % (MANUAL) 0 %; LYMPHOCYTES % (MANUAL) 7 %; NEUTROPHILS % (MANUAL) 81 %
[2016-09-22 08:10] LABS: ALANINE AMINOTRANSFERASE 15 U/L (0-55); ALBUMIN 3.6 G/DL (3.2-4.5); ANION GAP 15 MMOL/L (5-14); ASPARTATE AMINO TRANSFERASE 13 U/L (5-34); BLOOD UREA NITROGEN 11 MG/DL (7-18); BUN/CREATININE RATIO 13; CALCIUM 8.8 MG/DL (8.5-10.1); CARBON DIOXIDE 18 MMOL/L (21-32); CHLORIDE 106 MMOL/L (98-107); CREATININE SERUM 0.82 MG/DL (0.60-1.30); GFR ESTIMATED > 60; GLUCOSE 251 MG/DL (70-105); MAGNESIUM 1.5 MG/DL (1.8-2.4); POTASSIUM 3.8 MMOL/L (3.6-5.0); SODIUM 139 MMOL/L (135-145); TOTAL PROTEIN 6.4 G/DL (6.4-8.2)
[2016-09-22 08:12] LABS: hs C REACTIVE PROTEIN 21.08 MG/DL (0.00-0.50)
--- NOTE | 2016-09-22 08:12 | Diagnostic Imaging Report ---
Portable upright radiograph of the chest. INDICATION: Shortness of breath. COMPARISON: 09/02/16. FINDINGS: The heart size is moderately enlarged. There is pulmonary vascular congestion. The right perihilar infiltrates are seen. No effusion or pneumothorax. The mediastinum and grace appear unremarkable. rn social services device is seen. IMPRESSION: Right perihilar infiltrates probably related to pneumonia. Cardiomegaly with vascular congestion. Dictated by: Dictated on workstation # [id number]
[2016-09-22 08:13] LABS: DIGOXIN 0.36 NG/ML (0.80-2.00); TROPONIN I < 0.30 NG/ML (<0.30)
[2016-09-22] MEDS ORDERED: methylPREDNISolone 40 MG/ML (Solu-MEDROL) VIAL IV ONE (08:30)
[2016-09-22] MEDS ORDERED: DIGOXIN 0.25 MG/ML (LANOXIN) 2 ML AMP IV ONE (09:00)
--- NOTE | 2016-09-22 09:07 | Consultation-Cardiology ---
HPI-Cardiology Cardiology Consultation Date of Consultation 09/22/16 Date of Admission Indication: tachycardia HPI 65-year-old gentleman with history of paroxysmal atrial fibrillation, COPD, has been in and out of atrial fibrillation recently. Started having worsening shortness of breath, came into the emergency room, was in respiratory failure, atrial fibrillation with rapid ventricular response. Has been complaining of cough. Denied any chest pain. Denied any syncope or near syncopal episodes. Has been compliant with his medications. 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" Home Medication List Reviewed: Yes MXA-Xpqhbo-Hurzdh Hx Patient Social History Alcohol Use: Denies Use Recreational Drug Use: No Smoking Status: Never a Smoker Former smoker/When Quit: Jan 05, 1985 Recent Foreign Travel: No Recent Infectious Disease Expo: No Recent Hopitalizations: Yes (HEART PROBLEMS) Immunizations Up To Date Date of Pneumonia Vaccine: May 06, 2013 Date of Influenza Vaccine: Apr 25, 2016 Past Medical History Past medical history as discussed below Family Medical History Significant Family History: Diabetes Family Medical Hx Noncontributory to his current condition Constitutional: see HPI malaise weakness EENTM: no symptoms reported see HPI Respiratory: see HPI cough dyspnea on exertion orthopnea short of breath wheezing Cardiovascular: see HPI edema palpitations Gastrointestinal: no symptoms reported see HPI Genitourinary: no symptoms reported see HPI Musculoskeletal: see HPI joint pain muscle pain Skin: no symptoms reported see HPI Psychiatric/Neurological: No Symptoms Reported See HPI Reviewed Test Results Reviewed Test Results Lab Laboratory Tests Test 09/22/16 07:20 Range/Units Activated Partial Thromboplast Time 34 24-35 SEC Alanine Aminotransferase (ALT/SGPT) 15 0-55 U/L Albumin 3.6 3.2-4.5 G/DL Alkaline Phosphatase 99 40-136 U/L Anion Gap 15 H 5-14 MMOL/L Anisocytosis SLIGHT Aspartate Amino Transf (AST/SGOT) 13 5-34 U/L B-Type Natriuretic Peptide 48.1 <100.0 PG/ML BUN/Creatinine Ratio 13 Band Neutrophils 7 % Basophils # (Auto) 0.0 0.0-0.1 10^3/uL Basophils % (Manual) 0 % Basophils (%) (Auto) 0 0-10 % Blood Urea Nitrogen 11 7-18 MG/DL C-Reactive Protein High Sensitivity 21.08 H 0.00-0.50 MG/DL Calcium Level 8.8 8.5-10.1 MG/DL Carbon Dioxide Level 18 L 21-32 MMOL/L Chloride Level 106 98-107 MMOL/L Creatinine 0.82 0.60-1.30 MG/DL Digoxin Level 0.36 L 0.80-2.00 NG/ML Eosinophils # (Auto) 0.0 0.0-0.3 10^3/uL Eosinophils % (Manual) 0 % Eosinophils (%) (Auto) 1 0-10 % Estimat Glomerular Filtration Rate > 60 Glucose Level 251 H 70-105 MG/DL Hematocrit 40 40-54 % Hemoglobin 13.2 L 13.3-17.7 G/DL INR Comment 1.4 0.8-1.4 Lactic Acid Level 2.2 *H 0.5-2.0 MMOL/L Lymphocytes # (Auto) 0.6 L 1.0-4.0 X 10^3 Lymphocytes % (Manual) 7 % Lymphocytes (%) (Auto) 8 L 12-44 % Magnesium Level 1.5 L 1.8-2.4 MG/DL Mean Corpuscular Hemoglobin 28 25-34 PG Mean Corpuscular Hemoglobin Concent 33 32-36 G/DL Mean Corpuscular Volume 85 80-99 FL Mean Platelet Volume 9.6 7.4-10.4 FL Monocytes # (Auto) 0.5 0.0-1.0 X 10^3 Monocytes % (Manual) 5 % Monocytes (%) (Auto) 7 0-12 % Neutrophils # (Auto) 6.1 1.8-7.8 X 10^3 Neutrophils % (Manual) 81 % Neutrophils (%) (Auto) 84 H 42-75 % Platelet Count 189 130-400 10^3/uL Potassium Level 3.8 3.6-5.0 MMOL/L Prothrombin Time 17.0 H 12.2-14.7 SEC Red Blood Count 4.69 4.35-5.85 10^6/uL Red Cell Distribution Width 15.4 H 10.0-14.5 % Sodium Level 139 135-145 MMOL/L Total Bilirubin 1.0 0.1-1.0 MG/DL Total Protein 6.4 6.4-8.2 G/DL Troponin I < 0.30 <0.30 NG/ML White Blood Count 7.3 4.3-11.0 10^3/uL Physical Exam Vital Signs Vital Sign - Last 12Hours 09/22/16 07:08 Temp 100.1 Pulse 140 Resp 40 B/P 140/78 Pulse Ox 94 O2 Delivery Nasal Cannula O2 Flow Rate 3 Capillary Refill : Less Than 3 Seconds General Appearance: No Apparent Distress WD/WN Eyes: Bilateral Eye EOMI, Bilateral Eye Normal Inspection, Bilateral Eye PERRL HEENT: PERRL/EOMI TMs Normal Normal ENT Inspection Pharynx Normal Neck: Full Range of Motion Normal Inspection Non Tender Supple Carotid Bruit Respiratory: Chest Non Tender Lungs Clear Normal Breath Sounds No Accessory Muscle Use No Respiratory Distress Cardiovascular: Regular Rate, Rhythm No Edema No Gallop No JVD No Murmur Normal Peripheral Pulses Gastrointestinal: Normal Bowel Sounds No Organomegaly No Pulsatile Mass Non Tender Soft Back: Normal Inspection No CVA Tenderness No Vertebral Tenderness Extremity: Normal Capillary Refill Normal Inspection Normal Range of Motion Non Tender No Calf Tenderness No Pedal Edema Neurologic/Psychiatric: Alert Oriented x3 No Motor/Sensory Deficits Normal Mood/Affect Skin: Normal Color Warm/Dry Lymphatic: No Adenopathy A/P-Cardiology Admission Diagnosis Acute respiratory insufficiency Atrial fibrillation with rapid ventricular response Tachycardia Assessment/Plan Dyspnea, acute respiratory insufficiency. Acute excess her patient of COPD, questionable pneumonia, managed by primary care physician. Continue to monitor. Paroxysmal atrial fibrillation, he was seen in the past by Dr. Mosher, failed medical treatment in the past with sotalol and amiodarone. Was seen in Consultation by Dr. Bell during his hospital stay in May 2016. Maintained on Propafenone, Cardizem and Xarelto. S/p LinQ implantation, multiple episodes with atrial fibrillation recently. Bolus him with digoxin in addition to the Cardizem drip, continue to titrate to achieve adequate rate control, continue on Xarelto. Monitor closely. Coronary artery disease, mild nonobstructive disease per cardiac catheterization done May 07, 2013. Currently asymptomatic. Most recent stress test June 2015 revealed abnormal EKG during Lexiscan injection, resolved spontaneously. No significant ischemia or infarct. EF 71 percent. Continue to monitor Hypertension, currently on Cardizem drip, monitor closely. Hyperlipidemia, on Pravachol, monitor lipids Lower extremity cellulitis, patient reports low grade fever over the past week. Further management per medical services. Peripheral edema, morbid obesity. Continue on diuretics and monitor closely. [id number] score is 3, yearly risk of stroke without oral anticoagulation 3.2 percent. Patient is maintained on Xarelto History of syncope, no recent syncopal episodes. Continue to monitor. Obstructive sleep apnea, COPD. Obesity, educated on weight loss. BMI is 55. Patient need to start on exercise and weight loss program. DM, followed and managed by primary care physician. Gastroesophageal reflux disease. Currently asymptomatic. Continue to monitor. Carotid stenosis, mild per ultrasound done in February 2016, continue to monitor. GABRIELA MARTINEZ MD Sep 22, 2016 09:07
--- NOTE | 2016-09-22 09:35 | Diagnostic Imaging Report ---
INDICATION: PICC line FINDINGS: A right PICC catheter distal tip overlies the lower SVC in good alignment. When compared to study of earlier this same date bilateral airspace opacities and cardiomegaly not grossly changed when differing technique taken into account. IMPRESSION: Bilateral infiltrates and cardiomegaly redemonstrated. PICC line placed with its distal tip projecting over the level of the lower SVC in good alignment. Dictated by: Dictated on workstation # [id number]
[2016-09-22] MEDS: DILTIAZEM DRIP 100 MG/NS 100 ML IV SCH ×6 (11:15→20:01)
[2016-09-22] MEDS ORDERED: RT-ALBUTEROL/IPRATROPIUM 3 ML (DUONEB) VIAL INH PRN (11:30)
[2016-09-22] MEDS: MAGNESIUM 1 GM/D5W 100 ML IVPB IV SCH ×2 (11:33→13:43)
[2016-09-22] MEDS: LEVOFLOXACIN 750 MG/D5W 150 ML PRE-MIX IV SCH (11:34)
[2016-09-22] MEDS ORDERED: VANCOMYCIN 2000 MG/NS 500 ML IVPB IV NR ×2 (12:00)
--- NOTE | 2016-09-22 12:38 | History & Physical-Hospitalist ---
HPI History of Present Illness: HPI/Chief Complaint CC: Pneumonia HPI: This is a 65-year-old white male mentally retarded long-term patient with severe ZEN due to severe morbid obesity of Dr. Alcazar that is known to me from multiple hospitalizations for heart failure the presents to the ICU bed 1 and respiratory insufficiency. He is requiring BiPAP and cardiology and pulmonary consultations for the atrial fibrillation with rapid ventricular response in addition to exacerbation of COPD and severe respiratory failure. He is actually been a hospice candidate for several months but very resistant to that situation so we'll continue to support this patient anyway possible maintain antibiotics for the pneumonia and treat sepsis with supportive care and will monitor patient closely in the meantime. Currently he has no pain and is tolerating BiPAP well. 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" Past Phcxshf-Ryvhsy-Exazxx Hx Patient Social History Marrital Status: single Employed/Student: unemployed Alcohol Use: Denies Use Recreational Drug Use: No Smoking Status: Never a Smoker Former smoker/When Quit: Jan 05, 1985 Recent Foreign Travel: No Contact w/other who traveled: No Recent Hopitalizations: Yes (HEART PROBLEMS) Recent Infectious Disease Expo: No Immunizations Up To Date Date of Pneumonia Vaccine: May 06, 2013 Date of Influenza Vaccine: Apr 25, 2016 Seasonal Allergies Seasonal Allergies: Yes Surgeries HX Surgeries: Yes (patient unable to recall) Surgeries: Abdominal, Cardiac Respiratory Hx Respiratory Disorders: Yes Respiratory Disorders: Chronic Bronchitis, COPD, Pneumonia, Sleep Apnea Cardiovascular Hx 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) Cardiac Disorders: Atrial Fibrillation (paroxysmal), Chronic Edema/Swelling, Coronary Artery Disease, Heart Attack, High Cholesterol, Hypertension, Palpitations Neurological Hx Neurological Disorders: Yes (MENTAL RETARDATION) Neurological Disorders: Developmental Disorder Reproductive System Hx Reproductive Disorders: No Genitourinary Hx Genitourinary Disorders: No Gastrointestinal Hx Gastrointestinal Disorders: Yes Gastrointestinal Disorders: Gastroesophageal Reflux Musculoskeletal Hx Musculoskeletal Disorders: Yes (chronic bilateral knee pain) Musculoskeletal Disorders: Arthritis, Chronic Back Pain Endocrine Hx Endocrine Disorders: Yes (MORBID OBESITY) Endocrine Disorders: Diabetes, Non-Insulin dep HEENT HX ENT Disorders: No Hearing Impairment: Hard of Hearing Cancer Hx Cancer: No Psychosocial Hx Psychiatric Problems: No Integumentary HX Skin/Integumentary Disorder: Yes (CELLULITIS) Blood Transfusions Hx Blood Disorders: No Family Medical History Significant Family History: Diabetes Review of Systems ROS-Unable to Obtain: other details unobtainable Constitutional: see HPI Physical Exam Physical Exam Vital Signs Vital Sign - Last 12Hours 09/22/16 07:08 Temp 100.1 Pulse 140 Resp 40 B/P 140/78 Pulse Ox 94 O2 Delivery Nasal Cannula O2 Flow Rate 3 Capillary Refill : Less Than 3 Seconds General Appearance: WD/WN Chronically ill Mild Distress Obese Eyes: Bilateral Eye Normal Inspection, Bilateral Eye PERRL HEENT: PERRL/EOMI Normal ENT Inspection Pharynx Normal Neck: Full Range of Motion Normal Inspection Non Tender Supple Carotid Bruit Respiratory: Chest Non Tender Crackles Decreased Breath Sounds Rales Respiratory Distress Wheezing Cardiovascular: No Edema No Gallop No JVD No Murmur Normal Peripheral Pulses Irregularly Irregular Tachycardia Gastrointestinal: Normal Bowel Sounds No Organomegaly No Pulsatile Mass Non Tender Soft Back: Normal Inspection No CVA Tenderness No Vertebral Tenderness Extremity: Normal Capillary Refill Normal Inspection Normal Range of Motion Non Tender No Calf Tenderness No Pedal Edema Neurologic/Psychiatric: Alert No Motor/Sensory Deficits Normal Mood/Affect Depressed Affect Other (MR) Skin: Normal Color Warm/Dry Lymphatic: No Adenopathy Results Results/Procedures Lab Laboratory Tests 09/22/16 07:20 Assessment/Plan Admission Diagnosis Assessment: Recurrent pneumonia with sepsis likely resistant organism and possibly gram- negative due to long-term residents Severe obstructive sleep apnea Congestive heart failure Atrial fibrillation with rapid ventricular response Severe debility requiring long-term Assessment and Plan Supportive care Cardiology and pulmonary consultations appreciated Poor prognosis Monitor closely EMA ACUNA DO Sep 22, 2016 12:38
[2016-09-22] MEDS ORDERED: RT-ALBUTEROL/IPRATROPIUM 3 ML (DUONEB) VIAL INH SCH (14:00)
[2016-09-22 14:46] LABS: ABG BASE EXCESS -3.1 MMOL/L (-2.5-2.5); ABG HCO3 20 MMOL/L (23-27); ABG OXYGEN SATURATION 97 % (94-100); ABG PCO2 32 MMHG (35-45); ABG PH 7.42 (7.37-7.43); ABG PO2 93 MMHG (79-93); ABG TCO2 21.4 MMOL/L (21.0-31.0)
[2016-09-22 14:47] LABS: ALLENS TEST YES-POS; PATIENT TEMP 98.7
[2016-09-22] MEDS: methylPREDNISolone 40 MG/ML (Solu-MEDROL) VIAL IV SCH ×2 (14:49→21:59)
[2016-09-22] MEDS: PIPERACILLIN/TAZOBACTAM 4.5 GM/NS 100 ML IVPB IV SCH ×4 (14:49→21:59)
[2016-09-22] MEDS: CATHETER FLUSH 10 ML SYR IV SCH ×2 (14:49→22:00)
[2016-09-22] MEDS ORDERED: DILT240C PO (15:55)
[2016-09-22] MEDS ORDERED: SENN8.6T68 PO (15:55)
[2016-09-22] MEDS ORDERED: NYST60PO TP (15:55)
[2016-09-22] MEDS ORDERED: IPRA3AMP IH (15:55)
[2016-09-22] MEDS ORDERED: INSU100I14 SQ (15:55)
[2016-09-22] MEDS ORDERED: DIGO250T PO (15:55)
[2016-09-22] MEDS ORDERED: MINE1OIN OD (15:55)
[2016-09-22] MEDS ORDERED: FLUT16SP22 (15:55)
[2016-09-22] MEDS ORDERED: ASPI-999 PO (15:55)
[2016-09-22] MEDS ORDERED: GUAI118L16 PO (15:58)
[2016-09-22] MEDS ORDERED: ACETAMINOPHEN 325 MG TABLET/CAPLET (TYLENOL) PO PRN (17:30)
[2016-09-22] MEDS ORDERED: [UNRECOGNIZED DRUG - OTHER] PO PRN (17:30)
[2016-09-22] MEDS ORDERED: GUAIFENESIN PO PRN (17:30)
[2016-09-22] MEDS ORDERED: CODEINE PHOSPHATE PO PRN (17:30)
[2016-09-22] MEDS ORDERED: NITROGLYCERIN 0.3 MG PO PRN (17:30)
[2016-09-22] MEDS ORDERED: NITROGLYCERIN SUBLINGUAL 0.4 MG TAB (NITROSTAT) SL PRN (18:30)
[2016-09-22] MEDS: RT-ALBUTEROL/IPRATROPIUM 3 ML (DUONEB) VIAL IH SCH ×2 (18:47→21:36)
[2016-09-22] MEDS ORDERED: NON-FORMULARY MEDICATION 1 EA EA (Pravastatin Sodium 40 MG) PO SCH (21:00)
[2016-09-22] MEDS ORDERED: NON-FORMULARY MEDICATION 1 EA EA (Insulin Detemir (Levemir Flextouch) 45 UNITS) SQ SCH (21:00)
[2016-09-22] MEDS ORDERED: NON-FORMULARY MEDICATION 1 EA EA (Topiramate 50 MG) PO SCH (21:00)
[2016-09-22] MEDS ORDERED: SYSTANE EYE DROPS 15 ML (NON-FORMULARY) OP SCH (21:00)
[2016-09-22] MEDS ORDERED: POLYMYX B SULF OD SCH (21:00)
[2016-09-22] MEDS ORDERED: DEXAMETH OD SCH (21:00)
[2016-09-22] MEDS ORDERED: NEO OD SCH (21:00)
[2016-09-22] MEDS ORDERED: NON-FORMULARY MEDICATION 1 EA EA (Propafenone HCl 225 MG) PO SCH (21:00)
[2016-09-22] MEDS ORDERED: [UNRECOGNIZED DRUG - OTHER] OD SCH (21:00)
[2016-09-22] MEDS: ATORVASTATIN 10 MG (LIPITOR) TABLET PO SCH (21:58)
[2016-09-22] MEDS: SENNOSIDES 8.6 MG (SENOKOT) TAB PO SCH (21:58)
[2016-09-22] MEDS: ARTIFICAL TEARS 0.4 ML UNIT DOSE (REFRESH PLUS) OP SCH (21:58)
[2016-09-22] MEDS: RIVAROXABAN 20 MG TABLET (XARELTO) PO SCH (21:58)
[2016-09-22] MEDS: toPIRamate 25 MG (TOPAMAX) TAB PO SCH (21:59)
[2016-09-22] MEDS: inSUlin DETERMIR 1 UNIT/0.01 ML (LEVEMIR) CHARGE PER UNIT SQ SCH (22:00)
[2016-09-22] MEDS: A & D OINT 60 GM TUBE TP SCH (22:00)
[2016-09-22] MEDS: NEO/POLY/DEX (MAXITROL) OPHTH OINT 3.5 GM OD SCH (22:01)
[2016-09-22] MEDS: PROPAFENONE 150 MG (RYTHMOL) TABLET PO SCH (22:09)
[2016-09-23] VITALS (26 sets, daily range): BP systolic 79–154; BP diastolic 58–141
[2016-09-23] MEDS ORDERED: LIDOCAINE UROJET 2% GEL 10 ML PKG TOP ONE (00:15)
[2016-09-23] MEDS: VANCOMYCIN 1500 MG/NS 500 ML IVPB IV SCH ×6 (00:22→23:49)
[2016-09-23 00:50] LABS: BILIRUBIN,URINE NEGATIVE (NEGATIVE); KETONES,URINE 1+ (NEGATIVE); LEUKOCYTE ESTERASE ,URINE NEGATIVE (NEGATIVE); NITRITE,URINE NEGATIVE (NEGATIVE); PH,URINE 6 (5-9); PROTEIN,URINE 2+ (NEGATIVE); UROBILINOGEN,URINE 1 MG/DL (NORMAL)
[2016-09-23 01:04] LABS: SQUAMOUS EPITHELIAL CELL,UR RARE /HPF
[2016-09-23] MEDS: DILTIAZEM DRIP 100 MG/NS 100 ML IV SCH ×8 (02:42→22:29)
[2016-09-23] MEDS: methylPREDNISolone 40 MG/ML (Solu-MEDROL) VIAL IV SCH ×4 (03:14→20:36)
[2016-09-23] MEDS: RT-ALBUTEROL/IPRATROPIUM 3 ML (DUONEB) VIAL IH SCH ×4 (03:18→19:58)
[2016-09-23 03:38] LABS: BASOPHILS % (AUTO) 0 % (0-10); EOSINOPHILS % (AUTO) 0 % (0-10); LYMPHOCYTES # (AUTO) 0.4 X 10^3 (1.0-4.0); LYMPHOCYTES % (AUTO) 7 % (12-44); MEAN CORPUSCULAR HEMOGLOBIN 28 PG (25-34); MEAN CORPUSCULAR HGB CONC 33 G/DL (32-36); MEAN CORPUSCULAR VOLUME 85 FL (80-99); MEAN PLATELET VOLUME 9.3 FL (7.4-10.4); MONOCYTES # (AUTO) 0.1 X 10^3 (0.0-1.0); MONOCYTES % (AUTO) 3 % (0-12); NEUTROPHILS # (AUTO) 4.9 X 10^3 (1.8-7.8); NEUTROPHILS % (AUTO) 91 % (42-75); PLATELET COUNT 192 10^3/uL (130-400); RED BLOOD COUNT 4.36 10^6/uL (4.35-5.85); RED CELL DISTRIBUTION WIDTH 14.9 % (10.0-14.5); WHITE BLOOD COUNT 5.4 10^3/uL (4.3-11.0)
[2016-09-23 04:03] LABS: ANION GAP 13 MMOL/L (5-14); BLOOD UREA NITROGEN 15 MG/DL (7-18); BUN/CREATININE RATIO 15; CALCIUM 8.4 MG/DL (8.5-10.1); CARBON DIOXIDE 19 MMOL/L (21-32); CHLORIDE 107 MMOL/L (98-107); CREATININE SERUM 0.99 MG/DL (0.60-1.30); GFR ESTIMATED > 60; GLUCOSE 317 MG/DL (70-105); PHOSPHORUS 2.7 MG/DL (2.3-4.7); POTASSIUM 4.1 MMOL/L (3.6-5.0); SODIUM 139 MMOL/L (135-145)
[2016-09-23] MEDS ORDERED: NORMAL SALINE 250 ML IV ONE (05:45)
[2016-09-23] MEDS: inSUlin ASPART (NovoLOG) 1 UNIT/0.01 ML (CHARGE PER UNIT) SC SCH ×3 (05:53→17:40)
[2016-09-23] MEDS: PIPERACILLIN/TAZOBACTAM 4.5 GM/NS 100 ML IVPB IV SCH ×6 (05:53→22:38)
[2016-09-23] MEDS: CATHETER FLUSH 10 ML SYR IV SCH ×3 (05:53→22:38)
[2016-09-23] MEDS: GLIMEPIRIDE 4 MG (AMARYL) TAB PO SCH (05:54)
[2016-09-23] MEDS ORDERED: NON-FORMULARY MEDICATION 1 EA EA (Insulin Aspart (Novolog Flexpen) 15 UNITS) SQ SCH (06:00)
--- NOTE | 2016-09-23 06:12 | Pulmonary Consultation ---
History of Present Illness History of Present Illness Date of Consultation 09/23/16 06:05 Date of Admission Reason for Visit: tachycardia History of Present Illness 65yo with hx of MR from ECF, morbid obesity, CHF, severe ZEN and multiple hospitalizations presented to hospital with respiratory failure requiring BiPAP. Pt is currently a full code. He has multiple prior episodes like this. Unable to obtain ROS secondary to pt being on BiPAP and MR. Allan am consulted for pulmonary management. 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" Home Medications Acetaminophen 325 Mg Tablet 650 MG PO Q8H PRN PRN MILD PAIN (Reported) TAKES 2 (325 MG) TABLETS Aspirin 81 Mg Tab.chew 81 MG PO DAILY (Reported) Digoxin 250 Mcg Tablet 250 MCG PO DAILY (Reported) Diltiazem HCl 240 Mg Cap.er.24h 240 MG PO BID (Reported) Fluticasone Propionate 16 Gm [place].susp 2 SPRAYS NSEACH DAILY PRN PRN CONGESTION (Reported) Fluticasone/Vilanterol 1 Each Blst.w.dev 2 PUFF IH DAILY (Reported) Glimepiride 4 Mg Tablet 4 MG PO DAILY (Reported) Guaifenesin/Codeine Phosphate 118 Ml Liquid 5 ML PO Q6H PRN PRN CONGESTION/ COUGH (Reported) Insulin Aspart 300 Units/3 Ml Solution 15 UNITS SQ AC (Reported) Insulin Detemir 100 Unit/1 Ml Insuln.pen 45 UNITS SQ BID (Reported) Ipratropium/Albuterol Sulfate 3 Ml Ampul.neb 3 ML IH Q6H (Reported) Mineral Oil/Petrolatum,White 1 Gm Oint...g. OD QID (Reported) USES IN BETWEEN NEOMYCIN/POLY/DEXAM Maximino/Polymyx B Sulf/Dexameth 3.5 Gm Oint...g. 1 APPLIC OD QID (Reported) USES ON RIGHT EYELID AFTER "LID SCRUB" Nitroglycerin 0.3 Mg Tab.subl 0.3 MG PO UD PRN PRN CHEST PAIN (Reported) NOT TO EXCEED 3 DOSES WITHIN 15 MINUTES Nystatin 60 Gm Powder TP TID (Reported) APPLY TO ABDOMINAL FOLD AND GROIN Pantoprazole Sodium 40 Mg Tablet.dr 40 MG PO DAILY@1400 (Reported) Pravastatin Sodium 40 Mg Tablet 40 MG PO HS (Reported) Propafenone HCl 225 Mg Tablet 225 MG PO BID (Reported) Propylene Glycol/Peg 400 15 Ml Drops 2 DROPS OD BID (Reported) Rivaroxaban 20 Mg Tablet 20 MG PO DAILY@1700 (Reported) Sennosides 8.6 Mg Tablet 8.6 MG PO BID (Reported) Tiotropium [place] 1 Inh Aerp 1 CAP INH DAILY (Reported) Topiramate 50 Mg Tablet 50 MG PO HS (Reported) Vitamin A & D 60 Gm Oint TP BID (Reported) Past Vupmvko-Gsntvu-Kyeyzz Hx Patient Social History Alcohol Use: Denies Use Recreational Drug Use: No Smoking Status: Former Smoker Former Smoker/When Quit: Jan 05, 1985 Recent Foreign Travel: No Contact w/Someone Who Travel: No Recent Infectious Disease Expo: No Recent Hopitalizations: Yes (HEART PROBLEMS) Physical Abuse Screen: No Sexual Abuse: No Immunizations Up To Date Date of Pneumonia Vaccine: May 06, 2013 Date of Influenza Vaccine: Apr 25, 2016 Seasonal Allergies Seasonal Allergies: Yes Surgeries HX Surgeries: Yes (patient unable to recall) Surgeries: Abdominal, Cardiac Respiratory Hx Respiratory Disorders: Yes Respiratory Disorders: Asthma, Sleep Apnea, COPD Cardiovascular Hx 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) Cardiac Disorders: Atrial Fibrillation (paroxysmal), Chronic Edema/Swelling, Coronary Artery Disease, Heart Attack, High Cholesterol, Hypertension, Palpitations Neurological Hx Neurological Disorders: Yes (MENTAL RETARDATION) Neurological Disorders: Developmental Disorder Reproductive System Hx Reproductive Disorders: No Genitourinary Hx Genitourinary Disorders: No Gastrointestinal Hx Gastrointestinal Disorders: Yes Gastrointestinal Disorders: Gastroesophageal Reflux Musculoskeletal Hx Musculoskeletal Disorders: Yes (chronic bilateral knee pain) Musculoskeletal Disorders: Arthritis, Chronic Back Pain Endocrine Hx Endocrine Disorders: Yes (MORBID OBESITY) Endocrine Disorders: Diabetes, Non-Insulin dep HEENT HX ENT Disorders: No Hearing Impairment: Hard of Hearing Cancer Hx Cancer: No Psychosocial Hx Psychiatric Problems: No Integumentary HX Skin/Integumentary Disorder: Yes (CELLULITIS) Blood Transfusions Hx Blood Disorders: No Family Medical History Significant Family History: Diabetes Exam Exam Vital Signs Date Time Temp Pulse Resp B/P Pulse Ox O2 Delivery O2 Flow Rate FiO2 09/23/16 04:12 97.7 09/23/16 04:00 95 40.00 09/23/16 03:19 83 21 94 40.00 09/23/16 03:00 92 36 132/89 96 NIV Bilevel 40.00 09/23/16 02:42 97.6 92 24 115/88 94 40.00 09/23/16 02:00 102 27 118/96 97 NIV Bilevel 40.00 09/23/16 01:00 89 11 125/75 95 NIV Bilevel 40.00 09/23/16 01:00 92 09/23/16 00:35 91 25 97 09/23/16 00:00 94 40.00 09/23/16 00:00 97.6 09/23/16 00:00 96 20 129/74 95 NIV Bilevel 40.00 09/22/16 23:00 122 115/88 97 NIV Bilevel 40.00 09/22/16 22:00 96 24 105/78 95 NIV Bilevel 40.00 09/22/16 21:36 83 21 94 09/22/16 21:00 103 135/81 94 NIV Bilevel 40.00 09/22/16 20:10 98.8 89 22 137/69 96 NIV Bilevel 40.00 09/22/16 20:01 99.2 83 21 127/83 94 40.00 09/22/16 20:00 96 40.00 09/22/16 20:00 91 140/82 94 NIV Bilevel 40.00 09/22/16 19:00 85 22 137/69 92 NIV Bilevel 40.00 09/22/16 19:00 86 09/22/16 18:47 83 21 94 09/22/16 18:00 95 20 127/83 94 NIV Bilevel 40.00 09/22/16 17:00 85 23 132/85 92 NIV Bilevel 40.00 09/22/16 16:28 87 24 94 09/22/16 16:00 99.2 09/22/16 16:00 116 22 140/87 94 NIV Bilevel 40.00 09/22/16 15:00 94 21 130/72 95 NIV Bilevel 40.00 09/22/16 14:51 111 26 94 09/22/16 14:00 90 26 123/76 98 NIV Bilevel 40.00 09/22/16 13:43 98 118/67 09/22/16 13:00 108 22 108/73 95 NIV Bilevel 40.00 09/22/16 13:00 103 09/22/16 12:42 122 27 95 09/22/16 12:00 101 30 112/62 93 NIV Bilevel 40.00 09/22/16 11:19 94 09/22/16 11:00 102 24 109/65 94 NIV Bilevel 40.00 09/22/16 10:45 40 09/22/16 10:42 123 38 98 09/22/16 10:35 100.7 124 26 108/63 98 NIV Bilevel 40.00 09/22/16 10:25 125 28 95 09/22/16 07:58 129 36 95 40 09/22/16 07:51 100.1 140 45 140/78 93 4.00 09/22/16 07:39 4 09/22/16 07:08 94 Nasal Cannula 3 09/22/16 07:08 100.1 140 40 140/78 94 Nasal Cannula I & O 09/23/16 07:00 Intake Total 400 ml Output Total 1055 ml Balance -655 ml General Appearance: No Apparent Distress WD/WN Moderate Distress Obese HEENT: PERRL/EOMI Normal ENT Inspection Pharynx Normal Neck: Normal Inspection Respiratory: No Respiratory Distress Accessory Muscle Use Wheezing Cardiovascular: Irregularly Irregular Tachycardia Other (marked pitting edema equal bilaterally) Capillary Refill: Less Than 3 Seconds Extremity: Pedal Edema Other (Marked bilateral pitting edema with chronic erythematous skin changes) Neurologic/Psychiatric: Alert Oriented x3 No Motor/Sensory Deficits Normal 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 Clinical Quality Measures DVT/VTE Risk/Contraindication: Risk Factor Score Per Nursin RFS Level Per Nursing on Admit: 4+=Very High MIA BRAUN DO Sep 23, 2016 06:12
[2016-09-23] MEDS: RT-ADVAIR HFA 115/21 MCG PER PUFF IH SCH ×2 (06:33→19:58)
[2016-09-23] MEDS: UMECLIDINIUM BROMIDE (INCRUSE ELLIPTA) 7'S IH SCH (06:34)
--- NOTE | 2016-09-23 07:56 | Diagnostic Imaging Report ---
Portable upright radiograph of the chest. INDICATION: Shortness of breath. COMPARISON: 09/22/2016. FINDINGS: The heart size is moderately enlarged. The previously seen infiltrates have improved particularly on the right side. There is still pulmonary vascular congestion. No effusion or pneumothorax. Mediastinum and grace appear unremarkable. 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 There is a right PICC line with the tip at the SVC level. IMPRESSION: Cardiomegaly with improving interstitial edema. Improving right perihilar infiltrates. Dictated by: Dictated on workstation # [id number]
--- NOTE | 2016-09-23 08:40 | Progress Note-Cardiology ---
Cardiology SOAP Progress Note Subjective: In bed with CPAP on. States he feels his breathing is somewhat better today. Reports occ prod cough. No c/o CP. No c/o palpitations. Objective: I&O/Vital Signs Vital Sign - Last 12Hours 09/23/16 09/23/16 09/23/16 09/23/16 02:42 03:00 03:19 04:00 Temp 97.6 Pulse 92 92 83 109 Resp 24 36 21 B/P 115/88 132/89 138/88 Pulse Ox 94 96 94 96 O2 Delivery NIV Bilevel NIV Bilevel O2 Flow Rate 40.00 40.00 40.00 40.00 09/23/16 09/23/16 09/23/16 09/23/16 04:00 04:12 05:00 06:00 Temp 97.7 Pulse 98 105 Resp 25 27 B/P 125/68 124/90 Pulse Ox 95 96 97 O2 Delivery NIV Bilevel NIV Bilevel O2 Flow Rate 40.00 40.00 40.00 09/23/16 09/23/16 09/23/16 09/23/16 06:35 06:40 07:00 08:00 Pulse 110 106 Resp 27 Pulse Ox 98 94 95 O2 Flow Rate 40.00 5.00 40.00 09/23/16 09/23/16 09/23/16 09/23/16 08:10 09:00 09:50 12:03 Temp 97.2 Pulse 151 112 Resp 39 B/P 116/89 Pulse Ox 97 95 O2 Flow Rate 40.00 40.00 09/23/16 09/23/16 12:16 13:00 Temp 97.1 Pulse 105 Intake and Output 09/23/16 00:00 Intake Total 350 ml Output Total 0 ml Balance 350 ml Weight (Pounds): 354 Weight (Ounces): 2.0 Weight (Calculated Kilograms): 160.336537 Constitutional: AAO x 3 Respiratory: chest expansion is symmetric chest is bilaterally symmetric other (diminished lower lobes bilat) Cardiovascular: irregularly irregularNo JVD, S1 and S2 systolic murmur Gastrointestional: No tender, soft round audible bowel sounds Genital/Rectal: other (Urinary catheter to DD - clear, yellow) Extremities: significant edema (mod bilat LE edema) Neurologic/Psychiatric: grossly intact Skin: rash (Ruddish skin bilat LE) Results/Procedures: Labs Laboratory Tests 09/22/16 14:42: Guzman Test YES-POS, Arterial Blood Base Excess -3.1L, Arterial Blood HCO3 20L, Arterial Blood Oxygen Saturation 97, Arterial Blood Partial Pressure CO2 32L, Arterial Blood Partial Pressure O2 93, Arterial Blood Total CO2 21.4, Arterial Blood pH 7.42, Blood Gas Inspired Oxygen 40%BIPAP, Blood Gas Patient Temperature 98.7, Blood Gas Puncture Site RT RADIAL, Blood Gas Ventilator Setting NO 09/22/16 21:56: Glucometer 280H 09/23/16 00:45: Urine Amorphous Sediment FEW KARLEE URATESH, Urine Bacteria TRACE, Urine Bilirubin NEGATIVE, Urine Casts NONE, Urine Clarity CLEAR, Urine Color YELLOW, Urine Crystals PRESENTH, Urine Culture Indicated NO, Urine Glucose (UA) 3+H, Urine Ketones 1+H, Urine Leukocyte Esterase NEGATIVE, Urine Mucus SMALLH, Urine Nitrite NEGATIVE, Urine Protein 2+H, Urine RBC NONE, Urine RBC (Auto) NEGATIVE, Urine Specific Lantry 1.020, Urine Squamous Epithelial Cells RARE, Urine Urobilinogen 1, Urine WBC NONE, Urine pH 6 09/23/16 03:30: Anion Gap 13, BUN/Creatinine Ratio 15, Basophils # (Auto) 0.0, Basophils (%) ( Auto) 0, Blood Urea Nitrogen 15, Calcium Level 8.4L, Carbon Dioxide Level 19L, Chloride Level 107, Creatinine 0.99, Eosinophils # (Auto) 0.0, Eosinophils (%) ( Auto) 0, Estimat Glomerular Filtration Rate > 60, Glucose Level 317H, Hematocrit 37L, Hemoglobin 12.2L, Lymphocytes # (Auto) 0.4L, Lymphocytes (%) ( Auto) 7L, Magnesium Level 2.0, Mean Corpuscular Hemoglobin 28, Mean Corpuscular Hemoglobin Concent 33, Mean Corpuscular Volume 85, Mean Platelet Volume 9.3, Monocytes # (Auto) 0.1, Monocytes (%) (Auto) 3, Neutrophils # (Auto) 4.9, Neutrophils (%) (Auto) 91H, Phosphorus Level 2.7, Platelet Count 192, Potassium Level 4.1, Red Blood Count 4.36, Red Cell Distribution Width 14.9H, Sodium Level 139, White Blood Count 5.4 09/23/16 11:22: Glucometer 368H 09/23/16 11:45: Vancomycin Level Trough 13.3 Microbiology 09/22/16 Blood Culture - Preliminary, Resulted No growth 09/22/16 Influenza Types A,B Antigen (ESTHELA) - Final, Complete Procedures NAME: GETACHEW [facility] REC#: [id number] PT STATUS: ADM IN : 1950 PHYSICIAN: MANDI COSBY DO ADMIT DATE: 09/22/16/ICU Draft Date of Exam:09/23/16 CHEST 1 VIEW, AP/PA ONLY Portable upright radiograph of the chest. INDICATION: Shortness of breath. COMPARISON: 09/22/2016. FINDINGS: The heart size is moderately enlarged. The previously seen infiltrates have improved particularly on the right side. There is still pulmonary vascular congestion. No effusion or pneumothorax. Mediastinum and grace appear unremarkable. plum packer is again seen. There is a right PICC line with the tip at the SVC level. IMPRESSION: Cardiomegaly with improving interstitial edema. Improving right perihilar infiltrates. Dictated on workstation # [id number] Dict: 09/23/1617 Trans: 09/23/16 0756 KENNETH [id number] Interpreted by: RICHARD CORREA MD Electronically signed by: A/P: Assessment: Dyspnea, acute respiratory insufficiency. Acute excess her patient of COPD, questionable pneumonia, managed by primary care physician. Continue to monitor. Paroxysmal atrial fibrillation, he was seen in the past by Dr. Mosher, failed medical treatment in the past with sotalol and amiodarone. Was seen in Consultation by Dr. Bell during his hospital stay in May 2016. Maintained on Propafenone, Cardizem and Xarelto. S/p LinQ implantation, multiple episodes with atrial fibrillation recently. Bolus him with digoxin in addition to the Cardizem drip, continue to titrate to achieve adequate rate control, continue on Xarelto. Monitor closely. Coronary artery disease, mild nonobstructive disease per cardiac catheterization done May 07, 2013. Currently asymptomatic. Most recent stress test June 2015 revealed abnormal EKG during Lexiscan injection, resolved spontaneously. No significant ischemia or infarct. EF 71 percent. Continue to monitor Hypertension, currently on Cardizem drip, monitor closely. Hyperlipidemia, on Pravachol, monitor lipids Lower extremity cellulitis, patient reports low grade fever over the past week. Further management per medical services. Peripheral edema, morbid obesity. Continue on diuretics and monitor closely. [id number] score is 3, yearly risk of stroke without oral anticoagulation 3.2 percent. Patient is maintained on Xarelto History of syncope, no recent syncopal episodes. Continue to monitor. Obstructive sleep apnea, COPD. Obesity, educated on weight loss. BMI is 55. Patient need to start on exercise and weight loss program. DM, followed and managed by primary care physician. Gastroesophageal reflux disease. Currently asymptomatic. Continue to monitor. Carotid stenosis, mild per ultrasound done in February 2016, continue to monitor. Plan: He is currently on Cardizem gtt and Rythmol for rate control - rate not well controlled. We will add Dig IV for rate control Continue OAC with Xarelto Sepsis is being managed by medical/pulmonary services Monitor lab Continue IV Lasix Physician Assessment Physician Assessment On BiPAP Cor irreg Lungs: dec bs at bases, increased exp phase Marked obesity A&R * As documented in our note above * I spoke with him, examined him, and reviewed his case in detail and spoke with him and answered questions OSORIO YANEZ Sep 23, 2016 08:40 EVELYN PEDROZA MD [facility] Sep 23, 2016 14:29 exercise and weight loss program. DM, followed and managed by primary care physician. Gastroesophageal reflux disease. Currently asymptomatic. Continue to monitor. Carotid stenosis, mild per ultrasound done in February 2016, continue to monitor. Plan: He is currently on Cardizem gtt and Rythmol for rate control - rate not well controlled. We will add Dig IV for rate control Continue OAC with Xarelto Sepsis is being managed by medical/pulmonary services Monitor lab Continue IV Lasix OSORIO YANEZ Sep 23, 2016 08:40
[2016-09-23] MEDS ORDERED: FUROSEMIDE 40 MG/4 ML INJ (LASIX) IVP NR (08:45)
[2016-09-23] MEDS ORDERED: DIGOXIN 0.25 MG/ML (LANOXIN) 2 ML AMP IV NR ×2 (08:45→11:00)
[2016-09-23] MEDS ORDERED: TIOTROPIUM BROMIDE (SPIRIVA) 5'S INHALER IH SCH (09:00)
[2016-09-23] MEDS ORDERED: [UNRECOGNIZED DRUG - OTHER] IH SCH (09:00)
[2016-09-23] MEDS: ARTIFICAL TEARS 0.4 ML UNIT DOSE (REFRESH PLUS) OP SCH ×2 (09:00→20:35)
--- NOTE | 2016-09-23 09:06 | Progress Note-Hospitalist ---
Subjective HPI/CC On Admission CC: Pneumonia HPI: This is a 65-year-old white male mentally retarded jail patient with severe ZEN due to severe morbid obesity of Dr. Alcazar that is known to me from multiple hospitalizations for heart failure the presents to the ICU bed 1 and respiratory insufficiency. He is requiring BiPAP and cardiology and pulmonary consultations for the atrial fibrillation with rapid ventricular response in addition to exacerbation of COPD and severe respiratory failure. He is actually been a hospice candidate for several months but very resistant to that situation so we'll continue to support this patient anyway possible maintain antibiotics for the pneumonia and treat sepsis with supportive care and will monitor patient closely in the meantime. Currently he has no pain and is tolerating BiPAP well. Date Seen 09/23/16 Subjective/Events-last exam Bandar says he's feeling better this morning. He is difficult to understand because he remains on BiPAP. Heart rate fluctuates from 110-130 . He ate a good breakfast. Review of Systems Pulmonary: Dyspnea Cough Gastrointestinal: : Constipation Objective Exam Vital Signs Vital Sign - Last 12Hours 09/22/16 09/22/16 07:08 10:45 Temp 100.1 Pulse 140 Resp 40 B/P 140/78 Pulse Ox 94 O2 Delivery Nasal Cannula O2 Flow Rate 3 FiO2 40 Capillary Refill : Less Than 3 Seconds General Appearance: Mild Distress Respiratory: Decreased Breath Sounds Rales Cardiovascular: Irregularly Irregular Tachycardia Gastrointestinal: Non Tender Distended Extremity: Calf Tenderness Inflammation Pedal Edema Neurologic/Psychiatric: Alert No Motor/Sensory Deficits Normal Mood/Affect Results/Procedures Lab Laboratory Tests 09/23/16 03:30 Assessment/Plan Assessment and Plan Assess & Plan/Chief Complaint Assessment: Recurrent pneumonia with sepsis likely resistant organism and possibly gram- negative due to jail residents- on Vanco,Levaquin, and Zosyn Severe obstructive sleep apnea-on BiPAP Congestive heart failure-improving Atrial fibrillation with rapid ventricular response-Dr. Martinez's help appreciated Severe debility requiring jail constipation-we'll use a glycerin suppository. Type II diabetes out of control secondary to steroids Patient remains a full code despite declining functional status JUANA RODRIGUEZ MD Sep 23, 2016 09:06
[2016-09-23] MEDS: PROPAFENONE 150 MG (RYTHMOL) TABLET PO SCH ×2 (09:45→20:36)
[2016-09-23] MEDS: NEO/POLY/DEX (MAXITROL) OPHTH OINT 3.5 GM OD SCH ×4 (09:45→20:36)
[2016-09-23] MEDS: SENNOSIDES 8.6 MG (SENOKOT) TAB PO SCH ×2 (09:49→20:36)
[2016-09-23] MEDS: A & D OINT 60 GM TUBE TP SCH ×2 (09:51→20:36)
[2016-09-23] MEDS: inSUlin DETERMIR 1 UNIT/0.01 ML (LEVEMIR) CHARGE PER UNIT SQ SCH ×2 (09:51→20:35)
[2016-09-23] MEDS: ASPIRIN 81 MG CHEW (CHILDREN'S ASA) PO SCH (09:52)
[2016-09-23] MEDS ORDERED: TROUGH ORDER-PHARMACY XX NR (11:00)
[2016-09-23] MEDS: LEVOFLOXACIN 750 MG/D5W 150 ML PRE-MIX IV SCH (11:36)
[2016-09-23] MEDS: PANTOPRAZOLE 40 MG (PROTONIX) TAB PO SCH (15:17)
[2016-09-23] MEDS: RIVAROXABAN 20 MG TABLET (XARELTO) PO SCH (17:40)
[2016-09-23] MEDS: toPIRamate 25 MG (TOPAMAX) TAB PO SCH (20:35)
[2016-09-23] MEDS: ATORVASTATIN 10 MG (LIPITOR) TABLET PO SCH (20:35)
[2016-09-23] MEDS: inSUlin (REGULAR) HUMAN 1 UNIT/0.01 ML (CHARGE PER UNIT) SC SCH (23:56)
[2016-09-24] VITALS (29 sets, daily range): BP systolic 106–142; BP diastolic 53–111
[2016-09-24] MEDS: RT-ALBUTEROL/IPRATROPIUM 3 ML (DUONEB) VIAL IH SCH ×4 (02:16→20:11)
[2016-09-24] MEDS: methylPREDNISolone 40 MG/ML (Solu-MEDROL) VIAL IV SCH ×4 (03:33→20:31)
[2016-09-24] MEDS: inSUlin (REGULAR) HUMAN 1 UNIT/0.01 ML (CHARGE PER UNIT) SC SCH ×5 (03:47→20:32)
[2016-09-24 03:51] LABS: BASOPHILS % (AUTO) 0 % (0-10); EOSINOPHILS % (AUTO) 0 % (0-10); LYMPHOCYTES # (AUTO) 0.3 X 10^3 (1.0-4.0); LYMPHOCYTES % (AUTO) 4 % (12-44); MEAN CORPUSCULAR HEMOGLOBIN 28 PG (25-34); MEAN CORPUSCULAR HGB CONC 33 G/DL (32-36); MEAN CORPUSCULAR VOLUME 85 FL (80-99); MEAN PLATELET VOLUME 9.6 FL (7.4-10.4); MONOCYTES # (AUTO) 0.2 X 10^3 (0.0-1.0); MONOCYTES % (AUTO) 3 % (0-12); NEUTROPHILS # (AUTO) 7.7 X 10^3 (1.8-7.8); NEUTROPHILS % (AUTO) 94 % (42-75); PLATELET COUNT 239 10^3/uL (130-400); RED BLOOD COUNT 4.35 10^6/uL (4.35-5.85); RED CELL DISTRIBUTION WIDTH 14.9 % (10.0-14.5); WHITE BLOOD COUNT 8.3 10^3/uL (4.3-11.0)
[2016-09-24 04:18] LABS: ANION GAP 12 MMOL/L (5-14); BLOOD UREA NITROGEN 26 MG/DL (7-18); BUN/CREATININE RATIO 25; CALCIUM 8.3 MG/DL (8.5-10.1); CARBON DIOXIDE 19 MMOL/L (21-32); CHLORIDE 109 MMOL/L (98-107); CREATININE SERUM 1.05 MG/DL (0.60-1.30); GFR ESTIMATED > 60; GLUCOSE 343 MG/DL (70-105); MAGNESIUM 2.1 MG/DL (1.8-2.4); PHOSPHORUS 2.3 MG/DL (2.3-4.7); POTASSIUM 3.8 MMOL/L (3.6-5.0); SODIUM 140 MMOL/L (135-145)
[2016-09-24 04:32] LABS: DIGOXIN 1.03 NG/ML (0.80-2.00)
[2016-09-24] MEDS: GLIMEPIRIDE 4 MG (AMARYL) TAB PO SCH (06:16)
[2016-09-24] MEDS: PIPERACILLIN/TAZOBACTAM 4.5 GM/NS 100 ML IVPB IV SCH ×6 (06:17→22:09)
[2016-09-24] MEDS: CATHETER FLUSH 10 ML SYR IV SCH ×3 (06:17→21:02)
[2016-09-24] MEDS: inSUlin ASPART (NovoLOG) 1 UNIT/0.01 ML (CHARGE PER UNIT) SC SCH ×3 (07:23→17:05)
[2016-09-24] MEDS: inSUlin DETERMIR 1 UNIT/0.01 ML (LEVEMIR) CHARGE PER UNIT SQ SCH ×2 (08:48→20:32)
[2016-09-24] MEDS: SENNOSIDES 8.6 MG (SENOKOT) TAB PO SCH ×2 (08:48→20:33)
[2016-09-24] MEDS: ASPIRIN 81 MG CHEW (CHILDREN'S ASA) PO SCH (08:48)
[2016-09-24] MEDS: ARTIFICAL TEARS 0.4 ML UNIT DOSE (REFRESH PLUS) OP SCH ×2 (08:49→20:31)
[2016-09-24] MEDS: NEO/POLY/DEX (MAXITROL) OPHTH OINT 3.5 GM OD SCH ×4 (08:50→20:36)
[2016-09-24] MEDS: A & D OINT 60 GM TUBE TP SCH ×2 (08:50→20:36)
[2016-09-24] MEDS: PROPAFENONE 150 MG (RYTHMOL) TABLET PO SCH ×2 (08:56→21:01)
[2016-09-24] MEDS: RT-ADVAIR HFA 115/21 MCG PER PUFF IH SCH ×2 (09:06→20:10)
[2016-09-24] MEDS: UMECLIDINIUM BROMIDE (INCRUSE ELLIPTA) 7'S IH SCH (09:06)
--- NOTE | 2016-09-24 10:02 | Progress Note-Hospitalist ---
Subjective HPI/CC On Admission CC: Pneumonia HPI: This is a 65-year-old white male mentally retarded [facility]iary patient with severe ZEN due to severe morbid obesity of Dr. Alcazar that is known to me from multiple hospitalizations for heart failure the presents to the ICU bed 1 and respiratory insufficiency. He is requiring BiPAP and cardiology and pulmonary consultations for the atrial fibrillation with rapid ventricular response in addition to exacerbation of COPD and severe respiratory failure. He is actually been a hospice candidate for several months but very resistant to that situation so we'll continue to support this patient anyway possible maintain antibiotics for the pneumonia and treat sepsis with supportive care and will monitor patient closely in the meantime. Currently he has no pain and is tolerating BiPAP well. Date Seen 09/24/16 Subjective/Events-last exam currently has no complaints is lying on his right side down with his BiPAP on. Heart rate is down in the 90s Review of Systems Pulmonary: Dyspnea Objective Exam Vital Signs Vital Sign - Last 12Hours 09/22/16 09/22/16 07:08 10:45 Temp 100.1 Pulse 140 Resp 40 B/P 140/78 Pulse Ox 94 O2 Delivery Nasal Cannula O2 Flow Rate 3 FiO2 40 Capillary Refill : Less Than 3 Seconds General Appearance: Mild Distress HEENT: Normal ENT Inspection Neck: Supple Respiratory: Decreased Breath Sounds Wheezing (expiratory) Cardiovascular: Irregularly Irregular Tachycardia Gastrointestinal: Non Tender Soft Distended Rectal: Deferred Back: Normal Inspection Extremity: Calf Tenderness Inflammation Pedal Edema Skin: Normal Color Warm/Dry Results/Procedures Lab Laboratory Tests 09/24/16 03:15 Assessment/Plan Assessment and Plan Assess & Plan/Chief Complaint Assessment: Recurrent pneumonia with sepsis likely resistant organism and possibly gram- negative due to penitentiary residents- on Vanco,Levaquin, and Zosyn-day number 3 Severe obstructive sleep apnea-on BiPAP Congestive heart failure-improving Atrial fibrillation with rapid ventricular response-Dr. Martinez's help appreciated -improving Severe debility requiring penitentiary constipation-we'll use a glycerin suppository. Type II diabetes out of control secondary to steroids Patient remains a full code despite declining functional status JUANA RODRIGUEZ MD Sep 24, 2016 10:02
[2016-09-24] MEDS ORDERED: BISACODYL 10 MG SUPP (DULCOLAX) PR ONE (10:15)
--- NOTE | 2016-09-24 11:09 | Progress Note-Cardiology ---
Cardiology SOAP Progress Note Subjective: On BPAP face mask. Communication, therefore, difficult Denies cp or palp or syncope Reports shortness of breath Objective: I&O/Vital Signs Vital Sign - Last 12Hours 09/23/16 09/24/16 09/24/16 09/24/16 23:58 00:00 00:04 01:00 Temp 98.2 Pulse 89 97 95 Resp 22 26 30 B/P 112/60 118/58 Pulse Ox 96 94 96 97 O2 Delivery NIV Bilevel NIV Bilevel O2 Flow Rate 40.00 40.00 40.00 40.00 09/24/16 09/24/16 09/24/16 09/24/16 01:00 02:00 02:17 03:00 Pulse 97 89 88 94 Resp 19 28 22 B/P 125/65 136/67 Pulse Ox 96 96 97 O2 Delivery NIV Bilevel NIV Bilevel O2 Flow Rate 40.00 40.00 40.00 09/24/16 09/24/16 09/24/16 09/24/16 03:50 04:00 04:05 05:00 Temp 97.1 Pulse 88 89 96 Resp 20 29 14 B/P 126/74 133/77 Pulse Ox 96 96 93 96 O2 Delivery NIV Bilevel NIV Bilevel O2 Flow Rate 40.00 40.00 40.00 40.00 09/24/16 09/24/16 09/24/16 09/24/16 06:00 07:00 08:00 08:00 Temp 97.3 Pulse 89 89 96 Resp 9 39 B/P 119/53 116/71 Pulse Ox 95 93 93 O2 Delivery NIV Bilevel NIV Bilevel O2 Flow Rate 40.00 40.00 40.00 09/24/16 09/24/16 09/24/16 08:18 09:07 10:21 Pulse 97 92 99 Resp 30 33 30 Pulse Ox 98 96 98 O2 Flow Rate 40.00 40.00 40.00 Intake and Output 09/24/16 00:00 Intake Total 1865 ml Output Total 925 ml Balance 940 ml Weight (Pounds): 320 Weight (Ounces): 2.0 Weight (Calculated Kilograms): 145.063692 Constitutional: AAO x 3 other (obese) Respiratory: chest expansion is symmetric chest is bilaterally symmetric other (diminished lower lobes bilat) Cardiovascular: irregularly irregularNo JVD, S1 and S2 systolic murmur Gastrointestional: No tender, soft round audible bowel sounds Genital/Rectal: other (Urinary catheter to DD - clear, yellow) Extremities: significant edema (mod bilat LE edema) Neurologic/Psychiatric: grossly intact Skin: rash (Ruddish skin bilat LE) Results/Procedures: Labs Laboratory Tests 09/23/16 11:22: Glucometer 368H 09/23/16 11:45: Vancomycin Level Trough 13.3 09/23/16 17:08: Glucometer 320H 09/23/16 20:34: Glucometer 327H 09/23/16 23:52: Glucometer 322H 09/24/16 03:15: Anion Gap 12, BUN/Creatinine Ratio 25, Basophils # (Auto) 0.0, Basophils (%) ( Auto) 0, Blood Urea Nitrogen 26H, Calcium Level 8.3L, Carbon Dioxide Level 19L, Chloride Level 109H, Creatinine 1.05, Digoxin Level 1.03, Eosinophils # (Auto) 0.0, Eosinophils (%) (Auto) 0, Estimat Glomerular Filtration Rate > 60, Glucose Level 343H, Hematocrit 37L, Hemoglobin 12.2L, Lymphocytes # (Auto) 0.3L, Lymphocytes (%) (Auto) 4L, Magnesium Level 2.1, Mean Corpuscular Hemoglobin 28, Mean Corpuscular Hemoglobin Concent 33, Mean Corpuscular Volume 85, Mean Platelet Volume 9.6, Monocytes # (Auto) 0.2, Monocytes (%) (Auto) 3, Neutrophils # (Auto) 7.7, Neutrophils (%) (Auto) 94H, Phosphorus Level 2.3, Platelet Count 239, Potassium Level 3.8, Red Blood Count 4.35, Red Cell Distribution Width 14.9H, Sodium Level 140, White Blood Count 8.3 09/24/16 03:40: Glucometer 303H Microbiology 09/22/16 Blood Culture - Preliminary, Resulted No growth 09/22/16 Influenza Types A,B Antigen (ESTHELA) - Final, Complete Laboratory Tests 09/23/16 03:30 09/24/16 03:15 Laboratory Tests 09/23/16 03:30 09/24/16 03:15 A/P: Assessment: Dyspnea, acute respiratory insufficiency. Multifactorial resp failure Obesity with obesity-hypovent and ZEN COPD Questionable pneumonia, managed by the Medical Service. Paroxysmal atrial fibrillation, he was seen in the past by Dr. Mosher, failed medical treatment in the past with sotalol and amiodarone. Was seen in Consultation by Dr. Bell during his hospital stay in May 2016. Maintained on Propafenone, Cardizem and Xarelto. Currently in a fib with RVR for which he is on iv dilt Coronary artery disease, mild nonobstructive disease per cardiac catheterization done May 07, 2013. Currently asymptomatic. Most recent stress test June 2015: no significant ischemia or infarct; EF 71 percent Hypertension Hyperlipidemia, Lower extremity cellulitis, managed by the Medical Service Peripheral edema, chronic, likely related to obesity and venous insuff [id number] score is 3, yearly risk of stroke without oral anticoagulation 3.2 percent. Patient is maintained on Xarelto History of syncope, no recent syncopal episodes DM, followed and managed by the Medical Service Gastroesophageal reflux disease, managed by the Medical Service Carotid stenosis, mild per ultrasound done in February 2016 Plan: * Complex management due to multiple comorbidities * Will try to switch oral dilt, if heart rate remains controlled * Dig for supplemental vent rate control, if dilt ineffective * Monitor labs closely * Continues to need very close monitoring * I spoke with him and answered CV related questions EVELYN PEDROZA MD FACP [facility] CCDS Sep 24, 2016 11:09
--- NOTE | 2016-09-24 11:11 | Diagnostic Imaging Report ---
INDICATION: Dyspnea. COMPARISON: 09/23/16. FINDINGS: Stable right PICC. Right perihilar and basilar heterogeneous pulmonary opacities appear to have progressed. Left basilar linear opacities are similar. Possible small layering right pleural effusion. No pneumothorax. IMPRESSION: 1. Stable right PICC. 2. Right mid and lower lung zone heterogeneous pulmonary opacities have progressed. This may relate to worsening infection or progressive atelectasis, depending on clinical scenario. Dictated by: Dictated on workstation # [id number]
[2016-09-24] MEDS ORDERED: DILTIAZEM 180 MG (CARDIZEM CD) CAP PO ONE (11:15)
[2016-09-24] MEDS: VANCOMYCIN 1500 MG/NS 500 ML IVPB IV SCH ×2 (11:44)
[2016-09-24] MEDS: LEVOFLOXACIN 750 MG/D5W 150 ML PRE-MIX IV SCH (12:02)
[2016-09-24] MEDS: PANTOPRAZOLE 40 MG (PROTONIX) TAB PO SCH (15:00)
[2016-09-24] MEDS: RIVAROXABAN 20 MG TABLET (XARELTO) PO SCH (17:05)
[2016-09-24] MEDS: ATORVASTATIN 10 MG (LIPITOR) TABLET PO SCH (20:32)
[2016-09-24] MEDS: toPIRamate 25 MG (TOPAMAX) TAB PO SCH (20:33)
[2016-09-24] MEDS: guaiFENesin/CODEINE (ROBITUSSIN AC) 10ML UDC PO PRN (21:06)
[2016-09-24] MEDS: DILTIAZEM DRIP 100 MG/NS 100 ML IV SCH ×2 (23:15)
[2016-09-25] VITALS (18 sets, daily range): BP systolic 108–148; BP diastolic 70–94
[2016-09-25] MEDS: VANCOMYCIN 1500 MG/NS 500 ML IVPB IV SCH ×4 (00:18→11:24)
[2016-09-25] MEDS: inSUlin (REGULAR) HUMAN 1 UNIT/0.01 ML (CHARGE PER UNIT) SC SCH ×6 (00:26→21:18)
[2016-09-25] MEDS: RT-ALBUTEROL/IPRATROPIUM 3 ML (DUONEB) VIAL IH SCH ×4 (02:29→19:59)
[2016-09-25] MEDS: methylPREDNISolone 40 MG/ML (Solu-MEDROL) VIAL IV SCH ×2 (03:54→08:27)
[2016-09-25 04:20] LABS: BASOPHILS % (AUTO) 0 % (0-10); EOSINOPHILS % (AUTO) 0 % (0-10); LYMPHOCYTES # (AUTO) 0.3 X 10^3 (1.0-4.0); LYMPHOCYTES % (AUTO) 4 % (12-44); MEAN CORPUSCULAR HEMOGLOBIN 28 PG (25-34); MEAN CORPUSCULAR HGB CONC 32 G/DL (32-36); MEAN CORPUSCULAR VOLUME 86 FL (80-99); MEAN PLATELET VOLUME 9.5 FL (7.4-10.4); MONOCYTES # (AUTO) 0.2 X 10^3 (0.0-1.0); MONOCYTES % (AUTO) 2 % (0-12); NEUTROPHILS # (AUTO) 6.4 X 10^3 (1.8-7.8); NEUTROPHILS % (AUTO) 94 % (42-75); PLATELET COUNT 267 10^3/uL (130-400); RED BLOOD COUNT 4.28 10^6/uL (4.35-5.85); RED CELL DISTRIBUTION WIDTH 15.1 % (10.0-14.5); WHITE BLOOD COUNT 6.8 10^3/uL (4.3-11.0)
[2016-09-25 04:39] LABS: ANION GAP 11 MMOL/L (5-14); BLOOD UREA NITROGEN 32 MG/DL (7-18); BUN/CREATININE RATIO 33; CALCIUM 8.4 MG/DL (8.5-10.1); CARBON DIOXIDE 21 MMOL/L (21-32); CHLORIDE 108 MMOL/L (98-107); CREATININE SERUM 0.97 MG/DL (0.60-1.30); GFR ESTIMATED > 60; GLUCOSE 275 MG/DL (70-105); MAGNESIUM 2.1 MG/DL (1.8-2.4); PHOSPHORUS 2.5 MG/DL (2.3-4.7); POTASSIUM 3.9 MMOL/L (3.6-5.0); SODIUM 140 MMOL/L (135-145)
[2016-09-25] MEDS: CATHETER FLUSH 10 ML SYR IV SCH ×3 (05:59→22:50)
[2016-09-25] MEDS: inSUlin ASPART (NovoLOG) 1 UNIT/0.01 ML (CHARGE PER UNIT) SC SCH ×3 (06:00→16:09)
[2016-09-25] MEDS: GLIMEPIRIDE 4 MG (AMARYL) TAB PO SCH (06:00)
[2016-09-25] MEDS ORDERED: KCL 20 MEQ TAB (K-DUR) PO SCH (06:00)
[2016-09-25] MEDS ORDERED: MAGNESIUM 1 GM/100 ML IVPB 100 ML IV SCH (06:00)
[2016-09-25] MEDS: PIPERACILLIN/TAZOBACTAM 4.5 GM/NS 100 ML IVPB IV SCH ×6 (06:00→22:50)
[2016-09-25] MEDS ORDERED: POTASSIUM CL 10MEQ/50ML IVPB 50 ML IV SCH (06:00)
[2016-09-25] MEDS: RT-ADVAIR HFA 115/21 MCG PER PUFF IH SCH ×2 (06:46→19:59)
[2016-09-25] MEDS: UMECLIDINIUM BROMIDE (INCRUSE ELLIPTA) 7'S IH SCH (06:47)
[2016-09-25] MEDS: guaiFENesin/CODEINE (ROBITUSSIN AC) 10ML UDC PO PRN ×3 (08:24→21:17)
[2016-09-25] MEDS: DILTIAZEM 180 MG (CARDIZEM CD) CAP PO SCH (08:25)
[2016-09-25] MEDS: ARTIFICAL TEARS 0.4 ML UNIT DOSE (REFRESH PLUS) OP SCH ×2 (08:25→21:18)
[2016-09-25] MEDS: inSUlin DETERMIR 1 UNIT/0.01 ML (LEVEMIR) CHARGE PER UNIT SQ SCH ×2 (08:25→21:10)
[2016-09-25] MEDS: PROPAFENONE 150 MG (RYTHMOL) TABLET PO SCH ×2 (08:26→21:08)
[2016-09-25] MEDS: SENNOSIDES 8.6 MG (SENOKOT) TAB PO SCH ×2 (08:26→21:07)
[2016-09-25] MEDS: FLUTICASONE NASAL SPRAY (FLONASE) 16 GM BTL NS PRN (08:26)
[2016-09-25] MEDS: ASPIRIN 81 MG CHEW (CHILDREN'S ASA) PO SCH (08:26)
[2016-09-25] MEDS: A & D OINT 60 GM TUBE TP SCH ×2 (08:27→21:10)
[2016-09-25] MEDS: CATHETER FLUSH 10 ML SYR IV PRN (08:31)
[2016-09-25] MEDS: NEO/POLY/DEX (MAXITROL) OPHTH OINT 3.5 GM OD SCH ×4 (09:12→21:06)
--- NOTE | 2016-09-25 09:14 | Progress Note-Hospitalist ---
Subjective HPI/CC On Admission CC: Pneumonia HPI: This is a 65-year-old white male mentally retarded jail patient with severe ZEN due to severe morbid obesity of Dr. Alcazar that is known to me from multiple hospitalizations for heart failure the presents to the ICU bed 1 and respiratory insufficiency. He is requiring BiPAP and cardiology and pulmonary consultations for the atrial fibrillation with rapid ventricular response in addition to exacerbation of COPD and severe respiratory failure. He is actually been a hospice candidate for several months but very resistant to that situation so we'll continue to support this patient anyway possible maintain antibiotics for the pneumonia and treat sepsis with supportive care and will monitor patient closely in the meantime. Currently he has no pain and is tolerating BiPAP well. Date Seen 09/25/16 Subjective/Events-last exam Bandar is on 4 L by nasal cannula and doing much better this morning. Respiratory therapy had changed to using Vapotherm with excellent results. He is concerned about needing his nystatin powder in his groin Review of Systems Pulmonary: Dyspnea Neurological: : Weakness Objective Exam Vital Signs Vital Sign - Last 12Hours 09/22/16 09/22/16 07:08 10:45 Temp 100.1 Pulse 140 Resp 40 B/P 140/78 Pulse Ox 94 O2 Delivery Nasal Cannula O2 Flow Rate 3 FiO2 40 Capillary Refill : Less Than 3 Seconds General Appearance: Chronically ill Obese Neck: Limited Range of Motion Respiratory: Lungs Clear Decreased Breath Sounds Cardiovascular: Irregularly Irregular Gastrointestinal: Distended Rectal: Deferred Extremity: Calf Tenderness Inflammation Pedal Edema Neurologic/Psychiatric: Alert Normal Mood/Affect Skin: Normal Color Results/Procedures Lab Laboratory Tests 09/25/16 04:02 Assessment/Plan Assessment and Plan Assess & Plan/Chief Complaint Assessment: Recurrent pneumonia with sepsis likely resistant organism and possibly gram- negative due to jail residents- on Vanco,Levaquin, and Zosyn-day number 4- improved to transfer to the floor Severe obstructive sleep apnea-on Vapotherm Congestive heart failure-improving Atrial fibrillation with rapid ventricular response-Dr. Martinez's help appreciated -improving Severe debility requiring jail constipation-we'll use a glycerin suppository. Type II diabetes out of control secondary to steroids Patient remains a full code despite declining functional status candidiasis-stat after JUANA RODRIGUEZ MD Sep 25, 2016 09:14
--- NOTE | 2016-09-25 09:16 | Diagnostic Imaging Report ---
INDICATION: ICU patient with shortness of breath. Comparison with 09/24/2016. FINDINGS: Right PICC line remain present. There continues to be bilateral perihilar infiltrate. There is increasing alveolar infiltrate noted in right lung base with probable volume loss as well. Cardiomegaly is again noted with prominence pulmonary vasculature. extruding press adjuster noted overlying the left upper lung. IMPRESSION: 1. Continued cardiomegaly with some suggestion of mild pulmonary edema. 2. Increasing alveolar infiltrate noted in right lung base with probable atelectasis as well. Dictated by: Dictated on workstation # [id number]
[2016-09-25] MEDS: LEVOFLOXACIN 750 MG/D5W 150 ML PRE-MIX IV SCH (11:24)
[2016-09-25] MEDS: predniSONE 20 MG TAB PO SCH (11:24)
--- NOTE | 2016-09-25 12:35 | Progress Note-Cardiology ---
Cardiology SOAP Progress Note Subjective: Does not report cp or palp or syncope Does report malaise and productive cough and shortness of breath Objective: I&O/Vital Signs Vital Sign - Last 12Hours 09/25/16 09/25/16 09/25/16 09/25/16 01:00 01:00 02:00 02:29 Pulse 100 100 87 Resp 21 18 B/P 124/85 138/90 Pulse Ox 97 97 97 O2 Delivery NIV Bilevel NIV Bilevel O2 Flow Rate 40.00 40.00 4.00 09/25/16 09/25/16 09/25/16 09/25/16 02:38 03:00 04:00 04:20 Temp 97.5 Pulse 101 89 95 95 Resp 31 24 19 B/P 148/94 117/86 Pulse Ox 97 94 96 96 O2 Delivery NIV Bilevel NIV Bilevel O2 Flow Rate 40.00 40.00 40.00 40.00 09/25/16 09/25/16 09/25/16 09/25/16 04:31 05:00 06:00 06:47 Pulse 77 85 Resp 17 26 B/P 123/87 123/87 Pulse Ox 95 97 96 96 O2 Delivery NIV Bilevel NIV Bilevel O2 Flow Rate 40.00 40.00 4.00 FiO2 40 09/25/16 09/25/16 09/25/16 09/25/16 06:49 06:50 07:00 07:00 Pulse 131 92 Resp 34 B/P 119/88 Pulse Ox 96 96 94 O2 Delivery High Flow N/C O2 Flow Rate 4.00 4.00 4.00 09/25/16 09/25/16 09/25/16 09/25/16 08:00 08:30 08:30 09:00 Temp 96.8 Pulse 88 106 Resp 30 28 B/P 129/82 127/88 Pulse Ox 95 96 O2 Delivery High Flow N/C High Flow N/C High Flow N/C O2 Flow Rate 4.00 4.00 4.00 4.00 09/25/16 09/25/16 10:00 11:00 Temp 96.8 Pulse 106 108 Resp 23 10 B/P 117/88 117/77 Pulse Ox 96 95 O2 Delivery High Flow N/C High Flow N/C O2 Flow Rate 4.00 4.00 Intake and Output 09/25/16 00:00 Intake Total 1200 ml Output Total 700 ml Balance 500 ml Weight (Pounds): 364 Weight (Ounces): 8.0 Weight (Calculated Kilograms): 165.488104 Constitutional: AAO x 3 other (obese) Respiratory: chest expansion is symmetric chest is bilaterally symmetric other (diminished lower lobes bilat) Cardiovascular: irregularly irregularNo JVD, S1 and S2 systolic murmur Gastrointestional: No tender, soft round audible bowel sounds Genital/Rectal: other (Urinary catheter to DD - clear, yellow) Extremities: significant edema (mod bilat LE edema) Neurologic/Psychiatric: grossly intact Skin: rash (Ruddish skin bilat LE) Results/Procedures: Labs Laboratory Tests 09/24/16 16:28: Glucometer 293H 09/24/16 19:57: Glucometer 276H 09/25/16 00:18: Glucometer 252H 09/25/16 03:55: Glucometer 237H 09/25/16 04:02: Anion Gap 11, BUN/Creatinine Ratio 33, Basophils # (Auto) 0.0, Basophils (%) ( Auto) 0, Blood Urea Nitrogen 32H, Calcium Level 8.4L, Carbon Dioxide Level 21, Chloride Level 108H, Creatinine 0.97, Eosinophils # (Auto) 0.0, Eosinophils (%) (Auto) 0, Estimat Glomerular Filtration Rate > 60, Glucose Level 275H, Hematocrit 37L, Hemoglobin 11.9L, Lymphocytes # (Auto) 0.3L, Lymphocytes (%) ( Auto) 4L, Magnesium Level 2.1, Mean Corpuscular Hemoglobin 28, Mean Corpuscular Hemoglobin Concent 32, Mean Corpuscular Volume 86, Mean Platelet Volume 9.5, Monocytes # (Auto) 0.2, Monocytes (%) (Auto) 2, Neutrophils # (Auto) 6.4, Neutrophils (%) (Auto) 94H, Phosphorus Level 2.5, Platelet Count 267, Potassium Level 3.9, Red Blood Count 4.28L, Red Cell Distribution Width 15.1H, Sodium Level 140, White Blood Count 6.8 09/25/16 08:20: Glucometer 310H 09/25/16 11:01: Glucometer 300H Microbiology 09/22/16 Blood Culture - Preliminary, Resulted No growth 09/22/16 Influenza Types A,B Antigen (ESTHELA) - Final, Complete Laboratory Tests 09/24/16 03:15 09/25/16 04:02 A/P: Assessment: Dyspnea, acute respiratory insufficiency. Multifactorial resp failure Obesity with obesity-hypovent and ZEN COPD Questionable pneumonia, managed by the Medical Service. Paroxysmal atrial fibrillation, he was seen in the past by Dr. Mosher, failed medical treatment in the past with sotalol and amiodarone. Was seen in Consultation by Dr. Bell during his hospital stay in May 2016. Maintained on Propafenone, Cardizem and Xarelto. Currently in a fib with RVR for which he is on iv dilt Coronary artery disease, mild nonobstructive disease per cardiac catheterization done May 07, 2013. Currently asymptomatic. Most recent stress test June 2015: no significant ischemia or infarct; EF 71 percent Hypertension Hyperlipidemia, Lower extremity cellulitis, managed by the Medical Service Peripheral edema, chronic, likely related to obesity and venous insuff [id number] score is 3, yearly risk of stroke without oral anticoagulation 3.2 percent. Patient is maintained on Xarelto History of syncope, no recent syncopal episodes DM, followed and managed by the Medical Service Gastroesophageal reflux disease, managed by the Medical Service Carotid stenosis, mild per ultrasound done in February 2016 Plan: * Complex management due to multiple comorbidities * Continue oral dilt * Dig for supplemental vent rate control, if dilt ineffective * Monitor labs closely * Continues to need very close monitoring * I spoke with him and answered his questions EVELYN PEDROZA MD FACP FAC CCDS Sep 25, 2016 12:35
[2016-09-25] MEDS: NYSTATIN CREAM (MYCOSTATIN) 30 GM TUBE TP SCH ×2 (13:55→21:18)
[2016-09-25] MEDS: PANTOPRAZOLE 40 MG (PROTONIX) TAB PO SCH (14:01)
[2016-09-25] MEDS: RIVAROXABAN 20 MG TABLET (XARELTO) PO SCH (17:26)
[2016-09-25] MEDS: ATORVASTATIN 10 MG (LIPITOR) TABLET PO SCH (21:07)
[2016-09-25] MEDS: toPIRamate 25 MG (TOPAMAX) TAB PO SCH (21:07)
[2016-09-26] VITALS: BP 156/88
[2016-09-26] MEDS: VANCOMYCIN 1500 MG/NS 500 ML IVPB IV SCH ×2 (00:32)
[2016-09-26] MEDS: CATHETER FLUSH 10 ML SYR IV PRN (00:37)
[2016-09-26] MEDS: RT-ALBUTEROL/IPRATROPIUM 3 ML (DUONEB) VIAL IH SCH ×3 (02:11→17:50)
[2016-09-26 04:00] VITALS: BP 139/82
[2016-09-26] MEDS: CATHETER FLUSH 10 ML SYR IV SCH ×2 (06:15→14:25)
[2016-09-26] MEDS: PIPERACILLIN/TAZOBACTAM 4.5 GM/NS 100 ML IVPB IV SCH ×4 (06:15→09:11)
--- NOTE | 2016-09-26 06:41 | Pulmonary Progress Note ---
Subjective Subjective/Events-last exam PT is doing well. Currently on BiPAP secondary to ZEN. RN states he is doing well without BiPAP during day. Exam Exam Vital Signs Date Time Temp Pulse Resp B/P Pulse Ox O2 Delivery O2 Flow Rate FiO2 09/26/16 04:12 74 19 95 40.00 09/26/16 04:00 95.8 79 20 139/82 96 NIV Bilevel 40.00 09/26/16 02:11 83 27 97 40.00 09/26/16 00:03 89 18 97 40.00 09/26/16 00:00 96.3 87 18 156/88 96 NIV Bilevel 40.00 09/25/16 22:25 116 33 97 40.00 09/25/16 20:02 97 4.00 09/25/16 20:00 4.00 09/25/16 20:00 95 4.00 09/25/16 20:00 96.8 98 24 122/76 94 High Flow N/C 4.00 09/25/16 15:38 96.4 96 21 108/78 94 High Flow N/C 4.00 09/25/16 15:00 94 24 108/78 95 High Flow N/C 4.00 09/25/16 14:06 95 4.00 09/25/16 14:01 95 09/25/16 14:00 93 30 94 High Flow N/C 4.00 09/25/16 13:00 98 33 94 High Flow N/C 4.00 09/25/16 13:00 94 09/25/16 12:00 93 37 95 High Flow N/C 4.00 09/25/16 11:00 96.8 108 10 117/77 95 High Flow N/C 4.00 09/25/16 10:00 106 23 117/88 96 High Flow N/C 4.00 09/25/16 09:00 106 28 127/88 96 High Flow N/C 4.00 09/25/16 08:30 96.8 High Flow N/C 4.00 09/25/16 08:30 4.00 09/25/16 08:00 88 30 129/82 95 High Flow N/C 4.00 09/25/16 07:00 92 09/25/16 07:00 131 34 119/88 94 High Flow N/C 4.00 09/25/16 06:50 96 4.00 09/25/16 06:49 96 4.00 09/25/16 06:47 96 4.00 I & O 09/26/16 07:00 Intake Total 3460 ml Output Total 800 ml Balance 2660 ml General Appearance: Chronically ill Obese HEENT: Normal ENT Inspection Neck: Limited Range of Motion Respiratory: Lungs Clear Decreased Breath Sounds Cardiovascular: Irregularly Irregular Capillary Refill: Less Than 3 Seconds Extremity: Calf Tenderness Inflammation Pedal Edema Neurologic/Psychiatric: Alert Normal Mood/Affect Skin: Normal Color Lymphatic: No Adenopathy Results Lab Laboratory Tests 09/25/16 04:02 Assessment/Plan Assessment/Plan Recurrent pneumonia with sepsis -Zosyn, vanco -D/C vanco, and levaquin -Repeat CXR 6-8 weeks after discharge -SVNS Acute bronchitis -solumedrol Severe ZEN -BiPAP at night -Can do out patient PSG if pt is able too Hx of CHF -appears stable currently Afib RVR Severe MR - from [facility] PT is 4th floor overflow. Clinical Quality Measures DVT/VTE Risk/Contraindication: Risk Factor Score Per Nursin RFS Level Per Nursing on Admit: 4+=Very High MIA BRAUN DO Sep 26, 2016 06:41 Clinical Quality Measures DVT/VTE Risk/Contraindication: Risk Factor Score Per Nursin RFS Level Per Nursing on Admit: 4+=Very High MIA BRAUN DO Sep 26, 2016 06:41
[2016-09-26] MEDS: inSUlin ASPART (NovoLOG) 1 UNIT/0.01 ML (CHARGE PER UNIT) SC SCH ×3 (07:40→16:12)
[2016-09-26] MEDS: inSUlin (REGULAR) HUMAN 1 UNIT/0.01 ML (CHARGE PER UNIT) SC SCH ×3 (07:40→16:47)
[2016-09-26] MEDS: GLIMEPIRIDE 4 MG (AMARYL) TAB PO SCH (07:40)
--- NOTE | 2016-09-26 08:21 | Cardiology Progress Note ---
Subjective Subjective/Events-last exam patient is sitting up in a chair, still having some cough and sore throat, still in atrial fibrillation with controlled rate. Mild dyspnea. Review of Systems General: No Chills, No Night Sweats, Fatigue MalaiseNo Appetite, No Other HEENT: No Head Aches, No Visual Changes, No Eye Pain, No Ear Pain, No Dysphasia , No Sinus Congestion, No Post Nasal Drip, No Sore Throat, No Other Pulmonary: Dyspnea CoughNo Pleuritic Chest Pain, No Other Cardiovascular: : EdemaNo: Chest Pain, Lt Headedness, Orthopnea, Other, Palpitations, Paroxysmal Noc. Dyspnea Objective-Cardiology Exam Last Set of Vital Signs Vital Signs 09/25/16 09/26/16 09/26/16 09/26/16 04:31 04:00 04:12 06:45 Temp 95.8 Pulse 74 Resp 19 B/P 139/82 Pulse Ox 97 O2 Delivery NIV Bilevel O2 Flow Rate 4.00 FiO2 40 Capillary Refill : Less Than 3 Seconds I&O Intake and Output 09/26/16 00:00 Intake Total 3440 ml Output Total 1275 ml Balance 2165 ml Intake Oral 1950 ml IV Total 1490 ml Output Urine Total 1275 ml General: Alert, Oriented X3, Cooperative, Mild Distress HEENT: Atraumatic, PERRLA Neck: Supple, No JVD, No Thyromegaly Lungs: Normal Air Movement, Other (bilateral rhonchi) Heart: Normal S1, Normal S2, No Murmurs, Other (irregular rhythm) Abdomen: Normal Bowel Sounds, Soft, No Tenderness, No Hepatosplenomegaly, No Masses Extremities: No Clubbing, No Cyanosis, Normal Pulses, No Tenderness/Swelling, Other (erythema and edema) Skin: No Rashes, Other (erythema of the lower extremities) Neuro: Normal Speech, Sensation Intact Psych/Mental Status: Mood NL Results Lab Laboratory Tests Test 09/25/16 08:20 09/25/16 11:01 09/25/16 15:57 09/25/16 21:03 Range/Units Glucometer 310 H 300 H 261 H 303 H 70-110 MG/DL Test 09/26/16 06:08 Range/Units Glucometer 212 H 70-110 MG/DL A/P-Cardiology Admission Diagnosis Acute respiratory insufficiency Atrial fibrillation with rapid ventricular response Tachycardia Assessment/Plan Dyspnea, acute exacerbation of COPD, pneumonia, managed by primary care physician, improving, still having some cough and shortness of breath, maintained on prednisone. Paroxysmal atrial fibrillation, he was seen in the past by Dr. Mosher, failed medical treatment in the past with sotalol and amiodarone. Was seen in Consultation by Dr. Bell during his hospital stay in May 2016. Maintained on Propafenone, Cardizem and Xarelto. S/p LinQ implantation, multiple episodes with atrial fibrillation recently. currently in atrial fibrillation with controlled rate, failed propafenone, will discontinue and start digoxin, try to control the rate. Coronary artery disease, mild nonobstructive disease per cardiac catheterization done May 07, 2013. Currently asymptomatic. Most recent stress test June 2015 revealed abnormal EKG during Lexiscan injection, resolved spontaneously. No significant ischemia or infarct. EF 71 percent. Continue to monitor Hypertension, currently on Cardizem drip, monitor closely. Hyperlipidemia, continue to monitor Lower extremity cellulitis, round and venous stasis changes. Peripheral edema, morbid obesity. Continue on diuretics and monitor closely. [id number] score is 3, yearly risk of stroke without oral anticoagulation 3.2 percent. Patient is maintained on Xarelto History of syncope, no recent syncopal episodes. Continue to monitor. Obstructive sleep apnea, COPD. Obesity, educated on weight loss. BMI is 55. Patient need to start on exercise and weight loss program. DM, followed and managed by primary care physician. Gastroesophageal reflux disease. Currently asymptomatic. Continue to monitor. Carotid stenosis, mild per ultrasound done in February 2016, continue to monitor. Clinical Quality Measures DVT/VTE Risk/Contraindication: Risk Factor Score Per Nursin RFS Level Per Nursing on Admit: 4+=Very High GABRIELA MARTINEZ MD Sep 26, 2016 08:21
[2016-09-26] MEDS ORDERED: DIGOXIN 0.25 MG/ML (LANOXIN) 2 ML AMP IV NR (08:30)
[2016-09-26] MEDS: RT-ADVAIR HFA 115/21 MCG PER PUFF IH SCH (08:32)
[2016-09-26] MEDS: UMECLIDINIUM BROMIDE (INCRUSE ELLIPTA) 7'S IH SCH (08:32)
[2016-09-26 09:00] VITALS: BP 118/82
--- NOTE | 2016-09-26 09:08 | Progress Note-Hospitalist ---
Subjective HPI/CC On Admission CC: Pneumonia HPI: This is a 65-year-old white male mentally retarded [facility] patient with severe ZEN due to severe morbid obesity of Dr. Alcazar that is known to me from multiple hospitalizations for heart failure the presents to the ICU bed 1 and respiratory insufficiency. He is requiring BiPAP and cardiology and pulmonary consultations for the atrial fibrillation with rapid ventricular response in addition to exacerbation of COPD and severe respiratory failure. He is actually been a hospice candidate for several months but very resistant to that situation so we'll continue to support this patient anyway possible maintain antibiotics for the pneumonia and treat sepsis with supportive care and will monitor patient closely in the meantime. Currently he has no pain and is tolerating BiPAP well. Date Seen 09/26/16 Subjective/Events-last exam patient is awake and alert sitting in his chair on 4 L nasal cannula. Complains primarily of phlegm in the back of his throat. He still has a Gordon catheter in his extremities extremely dyspneic with any exertion Review of Systems Pulmonary: Dyspnea Neurological: : Weakness Objective Exam Vital Signs Vital Sign - Last 12Hours 09/22/16 09/22/16 07:08 10:45 Temp 100.1 Pulse 140 Resp 40 B/P 140/78 Pulse Ox 94 O2 Delivery Nasal Cannula O2 Flow Rate 3 FiO2 40 Capillary Refill : Less Than 3 Seconds General Appearance: Obese HEENT: Other (right injected conjunctiva) Neck: Normal Inspection Supple Respiratory: Lungs Clear Decreased Breath Sounds Cardiovascular: Irregularly Irregular Tachycardia Gastrointestinal: Soft Extremity: Calf Tenderness Inflammation Pedal Edema Neurologic/Psychiatric: Alert Normal Mood/Affect Assessment/Plan Assessment and Plan Assess & Plan/Chief Complaint Assessment: Recurrent pneumonia with sepsis likely resistant organism and possibly gram- negative due to [facility] residents- on Levaquin, -day number 5- improved to transfer to the floor Severe obstructive lung disease on Vapotherm-improved oxygenation Congestive heart failure-improving Atrial fibrillation with rapid ventricular response-Dr. Martinez's help appreciated -improving Severe debility requiring [facility] constipation-we'll use a glycerin suppository. Type II diabetes out of control secondary to steroids Patient remains a full code despite declining functional status candidiasis plan is for discharge possibly Monday or Monday back to the [facility]- Will DC Gordon catheter JUANA RODRIGUEZ MD Sep 26, 2016 09:08
[2016-09-26] MEDS: ASPIRIN 81 MG CHEW (CHILDREN'S ASA) PO SCH (09:10)
[2016-09-26] MEDS: DILTIAZEM 180 MG (CARDIZEM CD) CAP PO SCH (09:10)
[2016-09-26] MEDS: SENNOSIDES 8.6 MG (SENOKOT) TAB PO SCH (09:10)
[2016-09-26] MEDS: ARTIFICAL TEARS 0.4 ML UNIT DOSE (REFRESH PLUS) OP SCH (09:10)
[2016-09-26] MEDS: A & D OINT 60 GM TUBE TP SCH (09:11)
[2016-09-26] MEDS: inSUlin DETERMIR 1 UNIT/0.01 ML (LEVEMIR) CHARGE PER UNIT SQ SCH (09:11)
[2016-09-26] MEDS: guaiFENesin/CODEINE (ROBITUSSIN AC) 10ML UDC PO PRN ×2 (09:11→16:46)
[2016-09-26] MEDS: FLUTICASONE NASAL SPRAY (FLONASE) 16 GM BTL NS PRN (09:11)
[2016-09-26] MEDS: NYSTATIN CREAM (MYCOSTATIN) 30 GM TUBE TP SCH ×2 (09:12→14:23)
[2016-09-26] MEDS ORDERED: ALFUZOSIN HCL 10 MG TAB (UROXATRAL) PO SCH (11:00)
[2016-09-26] MEDS: LEVOFLOXACIN 750 MG/D5W 150 ML PRE-MIX IV SCH (11:57)
[2016-09-26] MEDS: predniSONE 20 MG TAB PO SCH (11:57)
[2016-09-26 12:06] VITALS: BP 145/77
[2016-09-26] MEDS: PANTOPRAZOLE 40 MG (PROTONIX) TAB PO SCH (14:23)
[2016-09-26 15:58] VITALS: BP 130/77
[2016-09-26] MEDS ORDERED: DIGOXIN 0.25 MG (LANOXIN) TAB PO SCH (16:00)
[2016-09-26] MEDS: RIVAROXABAN 20 MG TABLET (XARELTO) PO SCH (16:11)
[2016-09-26] MEDS ORDERED: guaiFENesin (MUCINEX) 600 MG TAB PO SCH (21:00)
--- NOTE | 2016-10-06 08:22 | Discharge Summary-Hospitalist ---
Diagnosis/Chief Complaint Date of Admission Sep 22, 2016 at 10:08 Date of Discharge Sep 26, 2016 at 20:32 Discharge Date: Sep 26, 2016 Discharge Time: 1100 Admission Diagnosis Assessment: Recurrent pneumonia with sepsis likely resistant organism and possibly gram- negative due to group home residents Severe obstructive sleep apnea Congestive heart failure Atrial fibrillation with rapid ventricular response Severe debility requiring group home Discharge Diagnosis Severe obstructive lung disease on Vapotherm-improved oxygenation Congestive heart failure-improving Atrial fibrillation with rapid ventricular response- Severe debility requiring group home constipation-we'll use a glycerin suppository. Type II diabetes out of control secondary to steroids Patient remains a full code despite declining functional status Dyspnea, acute respiratory insufficiency. Paroxysmal atrial fibrillation, he was seen in the past by Dr. Mosher, failed medical treatment in the past with sotalol and amiodarone. Was seen in Consultation by Dr. Bell during his hospital stay in May 2016. Maintained on Propafenone, Cardizem and Xarelto. S/p LinQ implantation, multiple episodes with atrial fibrillation recently. Bolus him with digoxin in addition to the Cardizem drip, continue to titrate to achieve adequate rate control, continue on Xarelto. Monitor closely. Coronary artery disease, mild nonobstructive disease per cardiac catheterization done May 07, 2013. Currently asymptomatic. Most recent stress test June 2015 revealed abnormal EKG during Lexiscan injection, resolved spontaneously. No significant ischemia or infarct. EF 71 percent. Continue to monitor Hypertension, . Hyperlipidemia, on Pravachol, monitor lipids Lower extremity cellulitis Peripheral edema, morbid obesity. [id number] score is 3, yearly risk of stroke without oral anticoagulation 3.2 percent. Patient is maintained on Xarelto History of syncope, no recent syncopal episodes. Continue to monitor. Obstructive sleep apnea, COPD. Obesity, educated on weight loss. BMI is 55. Patient need to start on exercise and weight loss program. Gastroesophageal reflux disease. Currently asymptomatic. Continue to monitor. Carotid stenosis, mild per ultrasound done in February 2016 Reason Hospital Visit/Course CC: Pneumonia HPI: This is a 65-year-old white male mentally retarded group home patient with severe ZEN due to severe morbid obesity of Dr. Alcazar that is known to me from multiple hospitalizations for heart failure the presents to the ICU bed 1 and respiratory insufficiency. He is requiring BiPAP and cardiology and pulmonary consultations for the atrial fibrillation with rapid ventricular response in addition to exacerbation of COPD and severe respiratory failure. He is actually been a hospice candidate for several months but very resistant to that situation so we'll continue to support this patient anyway possible maintain antibiotics for the pneumonia and treat sepsis with supportive care and will monitor patient closely in the meantime. Currently he has no pain and is tolerating BiPAP well. 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 Blood cultures were negative. Influenza was negative. He was in afib with RVR. BNP was WNL . He was admitted and placed on BIPAP. He was very slow to turn around despite steroids and aggressive pulmonary toilet. Cardiac rate control was obtained with addition of Dig. He finally transitioned to nasal canula after a trial of Vapotherm. He was placed empirically on Levoquin, Vanc , and Zosyn on admission. He was diuresed.He is transferred to [place] for continued intermediate designer pulmonary care. Labs (last 24 hrs) Microbiology 09/22/16 Blood Culture - Final, Complete No growth 09/22/16 Influenza Types A,B Antigen (ESTHELA) - Final, Complete Discharge Home Medications: Active Scripts Active Reported Cheratussin AC Syrup (Guaifenesin/Codeine Phosphate) 118 Ml Liquid 5 Ml PO Q6H PRN Iprat-Albut 0.5-3(2.5) mg/3 ml (Ipratropium/Albuterol Sulfate) 3 Ml Ampul.neb 3 Ml IH Q6H Nystop (Nystatin) 60 Gm Powder TP TID APPLY TO ABDOMINAL FOLD AND GROIN Novolog Flexpen (Insulin Aspart) 300 Units/3 Ml Solution 15 Units SQ AC Digoxin 250 Mcg Tablet 250 Mcg PO DAILY Fluticasone Propionate 16 Gm [place].susp 2 Sprays NSEACH DAILY PRN Puralube Ophthalmic Ointment (Mineral Oil/Petrolatum,White) 1 Gm Oint...g. OD QID USES IN BETWEEN NEOMYCIN/POLY/DEXAM Sennosides 8.6 Mg Tablet 8.6 Mg PO BID Diltiazem 24Hr ER (Diltiazem HCl) 240 Mg Cap.er.24h 240 Mg PO BID Aspirin 81 Mg Tab.chew 81 Mg PO DAILY Systane 0.3-0.4% Eye Drops (Propylene Glycol/Peg 400) 15 Ml Drops 2 Drops OD BID Propafenone HCl 225 Mg Tablet 225 Mg PO BID Tntrvc-Stmtt-Wpgsnrq Eye Ointm (Maximino/Polymyx B Sulf/Dexameth) 3.5 Gm Oint...g. 1 Applic OD QID USES ON RIGHT EYELID AFTER "LID SCRUB" Glimepiride 4 Mg Tablet 4 Mg PO DAILY Acetaminophen 325 Mg Tablet 650 Mg PO Q8H PRN TAKES 2 (325 MG) TABLETS Nitrostat (Nitroglycerin) 0.3 Mg Tab.subl 0.3 Mg PO UD PRN NOT TO EXCEED 3 DOSES WITHIN 15 MINUTES Levemir Flextouch (Insulin Detemir) 100 Unit/1 Ml Insuln.pen 45 Units SQ BID Vitamin A & D Ointment (Vitamin A & D) 60 Gm Oint TP BID Xarelto (Rivaroxaban) 20 Mg Tablet 20 Mg PO DAILY@1700 Topiramate 50 Mg Tablet 50 Mg PO HS Pravastatin Sodium 40 Mg Tablet 40 Mg PO HS Breo Ellipta 100-25 Mcg INH (Fluticasone/Vilanterol) 1 Each Blst.w.dev 2 Puff IH DAILY Spiriva (Tiotropium [place]) 1 Inh Aerp 1 Cap INH DAILY Pantoprazole Sodium 40 Mg Tablet.dr 40 Mg PO DAILY@1400 Condition at discharge guarded Instructions to patient/family Please see electonic discharge instructions given to patient. Clinical Quality Measures DVT/VTE Risk/Contraindication: Risk Factor Score Per Nursin RFS Level Per Nursing on Admit: 4+=Very High JUANA RODRIGUEZ MD Oct 06, 2016 08:22
== END 2016-09-26 20:32 | DRG 871 ==
LOC: EDUNIT# 07:08 → ER 07:10 → ICU 10:08
PROVIDERS: ADMIT Internal Medicine; ATTEND Internal Medicine
PROC: 02HV33Z Insertion of Infusion Device into Superior Vena Cava, Percutaneous Approach (ICD-10-PCS; principal; 2016-09-22)
DX: A41.9 Sepsis, unspecified organism (principal); J44.0 Chronic obstructive pulmonary disease with (acute) lower respiratory infection; J18.9 Pneumonia, unspecified organism; J20.9 Acute bronchitis, unspecified; J44.1 Chronic obstructive pulmonary disease with (acute) exacerbation; J96.90 Respiratory failure, unspecified, unspecified whether with hypoxia or hypercapnia; Z68.43 Body mass index [BMI] 50.0-59.9, adult; L03.115 Cellulitis of right lower limb; L03.116 Cellulitis of left lower limb; F72 Severe intellectual disabilities; E66.01 Morbid (severe) obesity due to excess calories; G47.33 Obstructive sleep apnea (adult) (pediatric); I11.0 Hypertensive heart disease with heart failure; I50.9 Heart failure, unspecified; I48.0 Paroxysmal atrial fibrillation; E11.65 Type 2 diabetes mellitus with hyperglycemia; T38.0X5A Adverse effect of glucocorticoids and synthetic analogues, initial encounter; B37.2 Candidiasis of skin and nail; I25.10 Atherosclerotic heart disease of native coronary artery without angina pectoris; I25.2 Old myocardial infarction; J45.909 Unspecified asthma, uncomplicated; Z87.891 Personal history of nicotine dependence; Z79.01 Long term (current) use of anticoagulants
CPT/HCPCS: 36415; 36569; 71010; 76937; 80048; 80053; 80162; 80202; 81000; 82805; 82962; 83605; 83735; 83880; 84100; 84484; 85007; 85025; 85027; 85610; 85730; 86141; 87040; 87804; 93005; 93041; 94640; 94660; 96365; 96366; 96367; 96375

== ENCOUNTER → 2016-10-21 | Outpatient (CLI) | payer MEDICARE, MEDICAID ==
[~2016-10-21] MED LIST changes: +ACLI400A2 IH; +ASPI-999 PO; +ATOR10TA PO; +BALS60OI TP; +BUDE10.2 IH; +DIGO250T PO; +DILT240C PO; +DILT360T2 PO; +FLUT16SP22; +FURO80TA3 PO; +GUAI118L16 PO; +GUAI5SYR PO; +GUAI600T59 PO; +IPRA3AMP IH; +LEVA1.2527 NEB; +METO2.5T PO; +MINE1OIN OD; +NITR0.4T SL; +NYST60PO TP; +ONDN4T PO; +POTA20TA8 PO; +SENN8.6T68 PO; +TAMS0.4C98 PO; +TR1C15 TP
--- OUTSIDE RECORDS SUMMARY | 2016-10-21 23:08 | XMS REPORT | Continuity of Care Document ---
Author Author [facility] Organization [facility] Address Unknown Phone Unavailable Care Team Providers Care Floor Specialist Name Role Phone PCP Unavailable Source Comments Some departments are not documenting in the electronic medical record. If you do not see the information that you expected, contact Release of Information in the Health Information Management department at [phone] for further assistance in locating additional records.[facility] [...]
== END ==
PROVIDERS: ATTEND Family Medicine
DX: R19.7 Diarrhea, unspecified (principal)
CPT/HCPCS: 87324; 87449

== ENCOUNTER 2016-10-31 07:01 | Day surgery (SDC) | payer MEDICARE, MEDICAID ==
[~2016-10-31] VITALS: Ht 167.6 cm; Wt 163.4 kg
[2016-10-31] VITALS (15 sets, daily range): BP systolic 107–182; BP diastolic 54–129
[~2016-10-31 07:01] MED LIST changes: -ACLI400A2 IH; -ATOR10TA PO; -BALS60OI TP; -BUDE10.2 IH; -DILT360T2 PO; -FURO80TA3 PO; -GUAI5SYR PO; -GUAI600T59 PO; -LEVA1.2527 NEB; -METO2.5T PO; -NITR0.4T SL; -ONDN4T PO; -POTA20TA8 PO; -TAMS0.4C98 PO; -TR1C15 TP
[2016-10-31] MEDS ORDERED: HEParin (CATH LAB) 0 ML IV ONE (07:05)
[2016-10-31] MEDS ORDERED: LIDOCAINE 1% INJ 20 ML (XYLOCAINE) VIAL ONE (07:05)
[2016-10-31] MEDS ORDERED: NS IV 1000 ML 1,000 ML ONE (07:05)
--- NOTE | 2016-10-31 08:06 | Cardiac Procedure Note-CS/ASA ---
Pre-Procedure Note Pre-Op Procedure Note H&P Reviewed The H&P was reviewed, patient examined and no changes noted. Date H&P Reviewed: Oct 31, 2016 Time H&P Reviewed: 08:05 Conscious Sedation Pre-Proced Time Reviewed: 08:05 ASA Class: 3 Airway Mallampati Classification: ([place] appropriate class) I. II. III, IV Lungs Heart ASA score ASA 1: a normal healthy patient ASA 2: a patient with a mild systemic disease (mid diabetes, controlled hypertension, obesity x ASA 3: a patient with a severe systemic disease that limits activity (angina , COPD, prior Myocardial infarction) ASA 4: a patient with an incapacitating disease that is a constant threat to life (CHF, renal failure) ASA 5: a moribund patient not expected to survive 24 hrs. (ruptured aneurysm) ASA 6: a declared brain patient whose organs are being harvested. For emergent operations, add the letter E after the classification Grade 3 Sedation Plan: Analgesia, Amnesia, Plan communicated to team members, Discussed options with patient/fam, Discussed risks with patient/fam Note The patient is an appropriate candidate to undergo the planned procedure, sedation, and anesthesia. The patient immediately re-assessed prior to indication. GABRIELA MARTINEZ MD Oct 31, 2016 08:05
[2016-10-31] MEDS ORDERED: NS IV 1000 ML 1,000 ML IV SCH (08:10)
[2016-10-31 08:22] LABS: MEAN PLATELET VOLUME 9.3 FL (7.4-10.4); RED BLOOD COUNT 4.42 10^6/uL (4.35-5.85); WHITE BLOOD COUNT 8.1 10^3/uL (4.3-11.0)
--- NOTE | 2016-10-31 08:31 | Diagnostic Imaging Report ---
Portable upright radiograph of the chest. INDICATION: Atrial fibrillation. Dyspnea. FINDINGS: The heart is enlarged. There is significant pulmonary vascular congestion with mixed interstitial and some alveolar infiltrates seen bilaterally suggestive of pulmonary edema. No significant effusion is evident. No pneumothorax. The sales recruiter in the left thorax is seen. IMPRESSION: Findings suggestive of pulmonary edema. Dictated by: Dictated on workstation # [id number]
[2016-10-31 08:39] LABS: INR 1.7 (0.8-1.4); PROTHROMBIN TIME PATIENT 19.9 SEC (12.2-14.7)
[2016-10-31] MEDS ORDERED: LIDOCAINE 2% VISCOUS 15 ML UDC ONE (08:49)
[2016-10-31] MEDS ORDERED: proPOfol 200 MG/20 ML (DIPRIVAN) VIAL IV ONE (08:49)
[2016-10-31 08:50] LABS: ALANINE AMINOTRANSFERASE 22 U/L (0-55); ALBUMIN 3.4 G/DL (3.2-4.5); ANION GAP 11 MMOL/L (5-14); ASPARTATE AMINO TRANSFERASE 10 U/L (5-34); BILIRUBIN,TOTAL 0.8 MG/DL (0.1-1.0); BLOOD UREA NITROGEN 14 MG/DL (7-18); BUN/CREATININE RATIO 13; CALCIUM 8.9 MG/DL (8.5-10.1); CARBON DIOXIDE 22 MMOL/L (21-32); CHLORIDE 106 MMOL/L (98-107); CHOLESTEROL 130 MG/DL (< 200); CREATININE SERUM 1.05 MG/DL (0.60-1.30); DIRECT LDL 81 MG/DL (1-129); GFR ESTIMATED > 60; GLUCOSE 288 MG/DL (70-105); SODIUM 139 MMOL/L (135-145); TOTAL PROTEIN 6.1 G/DL (6.4-8.2); TRIGLYCERIDES 100 MG/DL (<150); VLDL CHOLESTEROL 20 MG/DL (5-40)
[2016-10-31] MEDS ORDERED: LEVA1.2527 NEB (08:57)
[2016-10-31] MEDS ORDERED: POTA20TA8 PO (08:57)
[2016-10-31] MEDS ORDERED: ATOR10TA PO (08:57)
[2016-10-31] MEDS ORDERED: DILT360T2 PO (08:57)
[2016-10-31] MEDS ORDERED: BUDE10.2 IH (08:57)
[2016-10-31] MEDS ORDERED: TR1C15 TP (08:57)
[2016-10-31] MEDS ORDERED: MIDAZOLAM 5 MG/5 ML (VERSED) VIAL ONE (08:57)
[2016-10-31] MEDS ORDERED: BALS60OI TP (08:57)
[2016-10-31] MEDS ORDERED: ACLI400A2 IH (08:57)
[2016-10-31] MEDS ORDERED: INSU100I29 SQ (08:57)
[2016-10-31] MEDS ORDERED: FURO80TA3 PO (08:57)
[2016-10-31] MEDS ORDERED: TAMS0.4C98 PO (08:57)
[2016-10-31] MEDS ORDERED: GUAI5SYR PO (08:57)
[2016-10-31] MEDS ORDERED: NITR0.4T SL (08:57)
[2016-10-31] MEDS ORDERED: GUAI600T59 PO (08:57)
[2016-10-31] MEDS ORDERED: ONDN4T PO (08:57)
[2016-10-31] MEDS ORDERED: ACETAMINOPHEN 325 MG TABLET/CAPLET (TYLENOL) PO PRN (09:30)
[2016-10-31] MEDS ORDERED: SENNOSIDES 8.6 MG (SENOKOT) TAB PO PRN (09:30)
[2016-10-31] MEDS ORDERED: guaiFENesin (MUCINEX) 600 MG TAB PO PRN (09:30)
[2016-10-31] MEDS ORDERED: guaiFENesin/DM (ROBITUSSIN DM) 10 ML UDC PO PRN (09:30)
[2016-10-31] MEDS ORDERED: FLUTICASONE NASAL SPRAY (FLONASE) 16 GM BTL NS PRN (09:30)
[2016-10-31] MEDS ORDERED: NITROGLYCERIN SUBLINGUAL 0.4 MG TAB (NITROSTAT) SL PRN (09:30)
--- NOTE | 2016-10-31 09:33 | Progress Note-Standard ---
Standard Progress Note Final Diagnosis Consulted for sedation for ARVIND/Cardioversion. Chart reviewed, report obtained, equipment at bedside. Versed 2mg IV, propofol 30 mg IV given. Tolerated procedure well. VSS. Report to Raymond BROWN care assumed. BEVERLY PATEL CRNA Oct 31, 2016 09:33
--- NOTE | 2016-10-31 10:12 | TEE REPORT ---
ARVIND WITH ELECTRICAL CARDIOVERSION REPORT DATE OF PROCEDURE: 10/31/2016 BRIEF HISTORY: Mr. Renteria was admitted for an elective ARVIND and cardioversion due to atrial flutter/fibrillation with rapid ventricular response. PROCEDURE NOTE: After explaining the procedure to the patient, all pros and cons were explained. All questions were answered. The patient signed a consent, then he was placed on a stretcher. Anesthesia was called for sedation. After sedation Omniplane probe was introduced through the mouth to the esophagus and then to the stomach multiple views were obtained. At of the procedure Omniplane probe was removed. No complication noted. FINDINGS: 1. The left ventricle is normal in size with normal contractility. Systolic function appeared to be normal. Estimated ejection fraction 50%. 2. The left atrium is enlarged. Left atrial appendage is enlarged. No clot or thrombus were seen within the left atrium or left atrial appendage. 3. The right atrium and right ventricle are prominent. No clot or thrombus were seen within the right side. 4. Intra-atrial septum evaluation showed small patent foramen ovale with [id number] shunt. 5. Mitral valve is heavily calcified with moderate mitral regurgitation. No mitral valve prolapse. No mitral valve stenosis. 6. Aortic valve is calcified. Still opening and closing normally. There is no significant aortic stenosis or regurgitation. 7. Tricuspid valve is normal in morphology with mild tricuspid regurgitation. 8. Pulmonic valve is functioning normally. 9. No pericardial effusion. 10. A portion of the aortic arch were evaluated and they were normal. CONCLUSION: 1. Normal left ventricular size with ejection fraction 50% percent. 2. Enlarged left atrium left atrial appendage with no clot or thrombus. 3. Small patent foramen ovale with [id number] shunt. 4. Moderate mitral regurgitation. Myxomatous degeneration of the mitral leaflet. 5. Some systolic plaques were noted in the aorta. ELECTRICAL CARDIOVERSION REPORT: The patient was sedated. (s/l PCP) cardioversion synchronized with 200 joules. It was successful in terminating atrial fibrillation. The patient continued to have episode of atrial tachycardia and then went back to atrial fibrillation. Another shock was delivered, also failed to maintain a sinus rhythm. CONCLUSION: Two electrical cardioversions delivered. Was successful in terminating atrial flutter but the patient was unable to tolerate to maintain sinus rhythm. Job ID: [id number] Dictated Date: 10/31/2016 09:34:36 Press Bucker Date: 10/31/2016 10:02:29/мария
[2016-10-31] MEDS ORDERED: ONDANSETRON 4 MG (ZOFRAN) ORAL DISSOLVE TAB PO PRN (11:45)
--- NOTE | 2016-10-31 11:46 | Electrophysiology Consultation ---
HPI-Cardiology Cardiology Consultation: Date of Consultation 10/31/16 Date of Admission Attending Physician Jaclyn Bonilla MD Admitting Physician Shira Alcazar MD Consulting Physician Jamal BELL MD HPI: Chief Complaint: AF with RVR This is a 66 year old patient of Dr Bonilla. He has history of obstructive sleep apnea, morbid obesity, non obstructive CAD, Normal LV function on Echo with almost normal LA size. he has history of significant atrial fibrillation. He has failed antiarrhythmic therapy with sotalol and amiodarone. On the last consultation he was started on propafenone 225 mg twice a day. He was also loaded with digoxin and continued on good doses of Cardizem. He was transferred to [facility] beginning of October. He presents back with atrial fibrillation and rapid ventricular rate. On review of all the medications it seems that both propafenone and digoxin were discontinued. he was continued on Xarelto. He had unsuccessful cardioversion with transesophageal echocardiogram this morning with Dr. Bonilla. Review of Systems-Cardiology Review of Systems Constitutional: No As described under HPI, No no symptoms reported, No chills, No fever, No lightheadedness, No malaise, No tiredness, No weight loss, No weight gain, No other Eyes: No As described under HPI, No no symptoms reported, No blindness, No blurred vision, No contact lenses, No drainage, No decreased acuity, No foreign body sensation, No glasses, No inflammation, No pain, No photophobia, No previous injury, No shadows, No tunnel vision, No other, No vision change Ears/Nose/Throat: No As described under HPI, No no symptoms reported, No chronic hearing loss, No epistaxis, No ear discharge, No ear pain, No loose teeth, No mouth pain, No mouth swelling, No nasal drainage, No nose pain, No recent hearing loss, No throat pain, No throat swelling, No ulcerations, No other Respiratory: No no symptoms reported, No As described under HPI, No cough, No orthopnea, No shortness of breath, No SOB with excertion, No SOB at rest, No stridor, No wheezing, No other Cardiovascular: irregular heart rate, palpitations Gastrointestinal: No no symptoms reported, No As described under HPI, No abdomen distended, No abdominal pain, No blood streaked bowels, No constipation , No diarrhea, No difficulty swallowing, No nausea, No poor appetite, No poor fluid intake, No rectal bleeding, No vomiting, No other, No nausea/vomiting/ diarrhea, No stool coloration changes Genitourinary: No no symptoms reported, No As described under HPI, No burning, No dysuria, No discharge, No frequency, No flank pain, No hematuria, No incontinence, No pain, No urgency, No other, No urine frequency changes, No urine coloration changes Musculoskeletal: No no symptoms reported, No As describe under HPI, No back pain, No gout, No joint pain, No joint swelling, No muscle pain, No muscle stiffness, No neck pain, No other Skin: No no symptoms reported, No As described under HPI, No change in color, No change in hair/nails, No dryness, No lesions, No lumps, No rash, No other, No skin related problems, No ulcerations, No rash on exposed areas, No ulcerations on exposed areas [id number]-[id number] Hx Patient Social History Smoking Status: Former Smoker Former smoker/When Quit: Jan 05, 1985 Type Used: Cigarettes Recent Foreign Travel: No Recent Infectious Disease Expo: No Immunizations Up To Date Date of Pneumonia Vaccine: May 06, 2013 Date of Influenza Vaccine: Apr 25, 2016 Past Medical History PMH As described under Assessment. 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" Home Medications Acetaminophen 325 Mg Tablet, 325 MG PO Q4H PRN for MILD PAIN, (Reported) Aclidinium [place] 400 Mcg Aer.pow.ba, 1 PUFF IH BID, (Reported) Aspirin 81 Mg Tab.chew, 81 MG PO DAILY, (Reported) Atorvastatin Calcium 10 Mg Tablet, 10 MG PO HS, (Reported) Balsam Henrique/Buchanan Oil 60 Gm Oint...g., TP DAILY, (Reported) Budesonide/Formoterol Fumarate 10.2 Gm Hfa.aer.ad, 2 PUFF IH BID, (Reported) Diltiazem HCl 240 Mg Cap.er.24h, 240 MG PO DAILY, (Reported) Diltiazem HCl 360 Mg Tab.er.24h, 360 MG PO DAILY, (Reported) Fluticasone Propionate 16 Gm [place].susp, 2 SPRAYS NA DAILY PRN for CONGESTION, ( Reported) Furosemide 80 Mg Tablet, 80 MG PO DAILY, (Reported) Glimepiride 4 Mg Tablet, 4 MG PO BID, (Reported) Guaifenesin 600 Mg Tab.er.12h, 600 MG PO Q8H PRN for CONGESTION/COUGH, (Reported ) Guaifenesin/Dextromethorphan 5 Ml Syrup, 5 ML PO Q6H PRN for COUGH, (Reported) Insulin Aspart 300 Units/3 Ml Solution, SQ ACHS, (Reported) 70-140 = 0 UNITS 141-180 = 4 UNITS 181-220 = 6 UNITS 221-260 = 8 UNITS 261- 300 = 10 UNITS 301-340 = 12 UNITS 341-380 = 14 UNITS 381-400 = 16 UNITS IF GREATER THAN [address] Insulin Detemir 100 Unit/1 Ml Insuln.pen, 10 UNITS SQ HS, (Reported) Insulin Detemir 100 Unit/1 Ml Insuln.pen, 20 UNIT SQ DAILY, (Reported) Levalbuterol HCl 1.25 Mg/3 Ml Vial.neb, 3 ML NEB TID, (Reported) Nitroglycerin 0.4 Mg Tab.subl, 0.4 MG SL UD PRN for CHEST PAIN, (Reported) Nystatin 60 Gm Powder, TP BID, (Reported) APPLY TO ABDOMINAL FOLD AND GROIN Ondansetron HCl 4 Mg Tab, 4 MG PO Q6H PRN for NAUSEA/VOMITING, (Reported) Pantoprazole Sodium 40 Mg Tablet.dr, 40 MG PO 1400, (Reported) Potassium Chloride 20 Meq Tab.er.prt, 40 MEQ PO BID, (Reported) TAKES 2 (20MEQ) TABLETS Rivaroxaban 20 Mg Tablet, 20 MG PO 1700, (Reported) Sennosides 8.6 Mg Tablet, 8.6 MG PO Q12H PRN for CONSTIPATION, (Reported) Tamsulosin HCl 0.4 Mg Cap, 0.4 MG PO DAILY, (Reported) Topiramate 50 Mg Tablet, 50 MG PO HS, (Reported) Triamcinolone Acet 15 Gm Cr, TP BID, (Reported) APPLY TO DERMATITIS ON LEGS Vitamin A & D 60 Gm Oint, TP BID, (Reported) APPLY TO BILATERAL LOWER LEGS Physical Exam-Cardiology Physical Exam Vital Signs/I&O Vital Sign - Last 12Hours 10/31/16 10/31/16 10/31/16 10/31/16 07:33 09:19 09:24 09:34 Temp 98.8 Pulse 184 183 125 121 Resp 32 24 B/P (MAP) 182/129 121/90 147/106 138/90 Pulse Ox 96 91 89 94 O2 Delivery Nasal Cannula Nasal Cannula Nasal Cannula Nasal Cannula O2 Flow Rate 3.00 5.00 5.00 3.00 Capillary Refill : Constitutional: No appears stated age, No AAO x 3, No apparent distress, No PERRL, No well-developed, No well-nourished, No other HEENT: No PERRL, No normal ENT inspection, No TMs normal, No pharynx normal, No scleral icterus (R), No scleral icterus (L), No pale conjunctivae (R), No pale conjunctivae (L), No photophobia, No TM abnormal (R), No TM abnormal (L), No pharyngeal erythema, No tonsillar exudate, No other, No discharge, No EOMI, No hearing is well preserved, No hard of hearing, No oral hygience is good, No ulceration, No xanthelasmas are seen Neck: No non-tender, No full range of motion, No supple, No normal inspection, No carotid bruit, No limited range of motion, No lymphadenopathy (R), No lymphadenopathy (L), No tender lateral, No tender midline, No thyromegaly, No other, No carotid pulses are 2 + bilaterally, No with good upstrokes Respiratory: No accessory muscle use, No respiratory distress, No chest tender , No chest expansion is symmetric, No chest is bilaterally symmetric, No lungs clear to percussion, No lungs clear to auscultation, No crackles, No rhonchi, No rales, No stridor, No wheezing, No pleural rub, No other Cardiovascular: No regular rate-rhythm, irregularly irregular, No extra beats, No parasternal heave is noted, No JVD, No edema, No bradycardia, No tachycardia , No point of maximal impulse, No cardiac thrills are palpable, No S1 and S2, No gallop/S3, No gallop/S4, No diastolic murmur, No systolic murmur, No friction rub, No click, No other Gastrointestinal: No tender, No soft, No round, No distended, No pulsatile mass , No organomegaly, No guarding, No rebound, No tenderness, No hernia, No mass, No audible bowel sounds, No abnormal bowel sounds, No abdominal bruits, No spleenomegaly, No other Rectal: deferred Extremities: No normal range of motion, No non-tender, No normal inspection, No pedal edema, No calf tenderness, No normal capillary refill, No pelvis stable , No calf tenderness, No inflammation, No pedal edema, No slow capillary refill , No swelling, No other, No abrasion, No clubbing, No cyanosis, No ecchymosis, No laceration, No no lower extremity edema bilateral, No significant edema, No tenderness, No wound Neurologic/Psychiatric: No bulk station agent II-XII nml as tested, No no motor/sensory deficits, No alert, No normal mood/affect, No oriented x 3, No abnormal cerebellar tests, No abnormal bulk station agent II-XII, No abnormal gait, No aphasia, No EOM palsy, No facial droop, No motor weakness, No sensory deficit, No depressed affect, No disoriented x 3, No other, No grossly intact, No power is 5/5 both on sides Skin: rash on exposed areas Data Review Labs Laboratory Tests 10/31/16 08:12: White Blood Count 8.1, Red Blood Count 4.42, Hemoglobin 12.3L, Hematocrit 38L, Mean Corpuscular Volume 85, Mean Corpuscular Hemoglobin 28, Mean Corpuscular Hemoglobin Concent 33, Red Cell Distribution Width 17.0H, Platelet Count 240, Mean Platelet Volume 9.3, Prothrombin Time 19.9H, INR Comment 1.7H, Activated Partial Thromboplast Time 37H, Sodium Level 139, Potassium Level 4.0, Chloride Level 106, Carbon Dioxide Level 22, Anion Gap 11, Blood Urea Nitrogen 14, Creatinine 1.05, Estimat Glomerular Filtration Rate > 60, BUN/Creatinine Ratio 13, Glucose Level 288H, Calcium Level 8.9, Total Bilirubin 0.8, Aspartate Amino Transf (AST/SGOT) 10, Alanine Aminotransferase (ALT/SGPT) 22, Alkaline Phosphatase 101, Total Protein 6.1L, Albumin 3.4, Triglycerides Level 100, Cholesterol Level 130, LDL Cholesterol Direct 81, VLDL Cholesterol 20, HDL Cholesterol 35L ECG Impression ECG Initial ECG Impression: Atrial Fibrillation w/RVR A/P-Cardiology Assessment/Admission Diagnosis atrial fibrillation with rapid ventricular rate, Obstructive sleep apnea, Cellulitis, Morbid obesity Plan this is 66-year-old gentleman with morbid obesity, obstructive sleep apnea, nonhealing ulcer on lower extremity with possible cellulitis, atrial fibrillation with rapid ventricular rate. He has known history of paroxysmal atrial fibrillation with rapid ventricular rate. Most of the times there is an inciting factor such as either COPD exacerbation or sepsis due to cellulitis. Previously he was started on sotalol and amiodarone but was refractory with repeated episodes of atrial fibrillation with rapid ventricular rate. He was started on propafenone 225 mg twice a day. He was also loaded with digoxin and On high doses of Cardizem. Stroke prevention with xarelto. He presented again with atrial fibrillation with rapid ventricular rate. ARVIND/ cardioversion was unsuccessful this morning. Reviewing all the medication, I find that propafenone and digoxin were discontinued as an outpatient. I have recommended to restart both propafenone and dig loading. He will continue on outpatient digoxin dose from tomorrow. He will also continue outpatient dose of Cardizem. his left atrial size was normal on echocardiogram. He may be a candidate for atrial fibrillation ablation, however, due to morbid obesity and obstructive sleep apnea I predict modest benefit only. However due to his relatively normal size of left atrium, this can be tried. If the patient fails atrial fibrillation ablation the next option is AV node ablation with permanent pacemaker. I will discuss with Dr. Bonilla. Thank you for your consultation. Please call me if you have any questions. Yolie Bell MD, [facility] Cardiac Electrophysiology Jamal BELL MD Oct 31, 2016 11:46
[2016-10-31] MEDS ORDERED: DIGOXIN 0.25 MG/ML (LANOXIN) 2 ML AMP IV NR (12:07)
[2016-10-31] MEDS ORDERED: FUROSEMIDE 40 MG (LASIX) TAB ONE (13:54)
[2016-10-31] MEDS: PANTOPRAZOLE 40 MG (PROTONIX) TAB PO SCH (14:00)
[2016-10-31] MEDS: FUROSEMIDE 40 MG (LASIX) TAB PO SCH (14:00)
[2016-10-31] MEDS ORDERED: BUMETANIDE 1 MG/4 ML (BUMEX) VIAL IV NR (14:15)
[2016-10-31] MEDS ORDERED: DILTIAZEM 240 MG (CARDIZEM CD) CAP PO NR (14:15)
[2016-10-31] MEDS: RT-ALBUTEROL SULF 2.5 MG/3 ML PRE-MIX VIAL IH SCH ×2 (14:17→20:14)
[2016-10-31] MEDS ORDERED: DILTIAZEM 240 MG (CARDIZEM CD) CAP PO SCH (16:00)
[2016-10-31] MEDS ORDERED: RIVAROXABAN 20 MG TABLET (XARELTO) PO SCH (17:00)
[2016-10-31] MEDS: DIGOXIN 0.25 MG/ML (LANOXIN) 2 ML AMP IV SCH ×2 (17:21→23:09)
[2016-10-31] MEDS ORDERED: ALFUZOSIN HCL 10 MG TAB (UROXATRAL) PO SCH (18:00)
[2016-10-31] MEDS: RT-ADVAIR HFA 115/21 MCG PER PUFF IH SCH (20:21)
[2016-10-31] MEDS ORDERED: toPIRamate 25 MG (TOPAMAX) TAB PO SCH (21:00)
[2016-10-31] MEDS ORDERED: ATORVASTATIN 10 MG (LIPITOR) TABLET PO SCH (21:00)
[2016-10-31] MEDS ORDERED: meTOprolol 5 MG/5 ML (LOPRESSOR) VIAL IV PRN (21:00)
[2016-10-31] MEDS ORDERED: inSUlin DETERMIR 1 UNIT/0.01 ML (LEVEMIR) CHARGE PER UNIT SQ SCH (21:00)
[2016-10-31] MEDS: GLIMEPIRIDE 4 MG (AMARYL) TAB PO SCH (22:43)
[2016-10-31] MEDS: KCL 20 MEQ TAB (K-DUR) PO SCH (22:43)
[2016-10-31] MEDS: inSUlin (REGULAR) HUMAN 1 UNIT/0.01 ML (CHARGE PER UNIT) SC SCH (22:44)
[2016-11-01 04:00] VITALS: BP 116/73
[2016-11-01] MEDS: inSUlin (REGULAR) HUMAN 1 UNIT/0.01 ML (CHARGE PER UNIT) SC SCH ×2 (06:49→10:42)
[2016-11-01] MEDS: FUROSEMIDE 40 MG (LASIX) TAB PO SCH (06:49)
[2016-11-01] MEDS: RT-ADVAIR HFA 115/21 MCG PER PUFF IH SCH (06:53)
[2016-11-01] MEDS: RT-ALBUTEROL SULF 2.5 MG/3 ML PRE-MIX VIAL IH SCH ×2 (06:53→14:48)
[2016-11-01 08:00] VITALS: BP 127/75
[2016-11-01] MEDS ORDERED: UMECLIDINIUM BROMIDE (INCRUSE ELLIPTA) 7'S IH SCH (08:00)
[2016-11-01] MEDS: GLIMEPIRIDE 4 MG (AMARYL) TAB PO SCH (08:38)
[2016-11-01] MEDS: KCL 20 MEQ TAB (K-DUR) PO SCH (08:38)
[2016-11-01] MEDS ORDERED: PROPAFENONE 150 MG (RYTHMOL) TABLET PO SCH (09:00)
[2016-11-01] MEDS ORDERED: ASPIRIN 81 MG CHEW (CHILDREN'S ASA) PO SCH (09:00)
[2016-11-01] MEDS ORDERED: DIGOXIN 0.25 MG (LANOXIN) TAB PO SCH (09:00)
[2016-11-01] MEDS ORDERED: DILTIAZEM 180 MG (CARDIZEM CD) CAP PO SCH (09:00)
[2016-11-01] MEDS ORDERED: inSUlin DETERMIR 1 UNIT/0.01 ML (LEVEMIR) CHARGE PER UNIT SQ SCH (09:00)
[2016-11-01 11:53] VITALS: BP 116/75
--- NOTE | 2016-11-01 13:52 | Cardiology Progress Note ---
Cardiology SOAP Progress Note Subjective: patient feels better than yesterday. Objective: I&O/Vital Signs Vital Sign - Last 12Hours 11/01/16 11/01/16 11/01/16 11/01/16 02:34 04:00 04:00 06:55 Temp 98.8 Pulse 118 115 Resp 16 20 B/P (MAP) 116/73 Pulse Ox 97 93 95 O2 Delivery NIV/CPAP O2 Flow Rate 35.00 4.00 3.00 11/01/16 11/01/16 11/01/16 11/01/16 07:00 08:00 08:00 09:00 Temp 97.3 Pulse 125 122 Resp 24 B/P (MAP) 127/75 Pulse Ox 93 96 O2 Delivery Nasal Cannula Nasal Cannula O2 Flow Rate 4.00 4.00 4.00 11/01/16 11/01/16 11:52 11:53 Temp 97.6 Pulse 130 Resp 20 B/P (MAP) 116/75 Pulse Ox 94 O2 Delivery Nasal Cannula O2 Flow Rate 4.00 4.00 Intake and Output 11/01/16 00:00 Intake Total 1020 ml Output Total 2475 ml Balance -1455 ml Weight (Pounds): 360 Weight (Ounces): 3.2 Weight (Calculated Kilograms): [id number] Constitutional: No appears stated age, No AAO x 3, No apparent distress, No PERRL, No well-developed, No well-nourished, No other Respiratory: No accessory muscle use, No respiratory distress, No chest tender , No chest expansion is symmetric, No chest is bilaterally symmetric, No lungs clear to percussion, No lungs clear to auscultation, No crackles, No rhonchi, No rales, No stridor, No wheezing, No pleural rub, No other Cardiovascular: No regular rate-rhythm, irregularly irregular, No extra beats, No parasternal heave is noted, No JVD, No edema, No bradycardia, No tachycardia , No point of maximal impulse, No cardiac thrills are palpable, No S1 and S2, No gallop/S3, No gallop/S4, No diastolic murmur, No systolic murmur, No friction rub, No click, No other Gastrointestional: No tender, No soft, No round, No distended, No pulsatile mass, No organomegaly, No guarding, No rebound, No tenderness, No hernia, No mass, No audible bowel sounds, No abnormal bowel sounds, No abdominal bruits, No spleenomegaly, No other Extremities: No normal range of motion, No non-tender, No normal inspection, No pedal edema, No calf tenderness, No normal capillary refill, No pelvis stable , No calf tenderness, No inflammation, No pedal edema, No slow capillary refill , No swelling, No other, No abrasion, No clubbing, No cyanosis, No ecchymosis, No laceration, No no lower extremity edema bilateral, No significant edema, No tenderness, No wound Neurologic/Psychiatric: No fire extinguisher inspector II-XII nml as tested, No no motor/sensory deficits, No alert, No normal mood/affect, No oriented x 3, No abnormal cerebellar tests, No abnormal fire extinguisher inspector II-XII, No abnormal gait, No aphasia, No EOM palsy, No facial droop, No motor weakness, No sensory deficit, No depressed affect, No disoriented x 3, No other, No grossly intact, No power is 5/5 both on sides Skin: rash on exposed areas Results/Procedures: Labs Laboratory Tests 10/31/16 22:37: Glucometer 199H 11/01/16 06:39: Glucometer 172H 11/01/16 10:24: Glucometer 254H Microbiology 10/31/16 MRSA Screen - Final, Complete MRSA not isolated A/P: Assessment/Dx: atrial fibrillation with rapid ventricular rate, Obstructive sleep apnea, Cellulitis, Morbid obesity Plan: this is 66-year-old gentleman with morbid obesity, obstructive sleep apnea, nonhealing ulcer on lower extremity with possible cellulitis, atrial fibrillation with rapid ventricular rate. He has known history of paroxysmal atrial fibrillation with rapid ventricular rate. Most of the times there is an inciting factor such as either COPD exacerbation or sepsis due to cellulitis. Previously he was started on sotalol and amiodarone but was refractory with repeated episodes of atrial fibrillation with rapid ventricular rate. He was started on propafenone 225 mg twice a day. He was also loaded with digoxin and On high doses of Cardizem. Stroke prevention with xarelto. He presented again with atrial fibrillation with rapid ventricular rate. ARVIND/ cardioversion was unsuccessful yesterday. Reviewing all the medication, I find that propafenone and digoxin were discontinued as an outpatient. I discussed with Dr. Bonilla and he informed me that patient continued to have atrial fibrillation with rapid ventricular rate on propafenone. Therefore propafenone was discontinued. The patient was restarted on digoxin and his outpatient dosages of Cardizem which resulted in better atrial fibrillation control overnight. his left atrial size was normal on echocardiogram. He may be a candidate for atrial fibrillation ablation, however, due to morbid obesity and obstructive sleep apnea I predict modest benefit only. due to his relatively normal size of left atrium, this can be tried. however, Dr. Bonilla tells me that the patient does not want atrial fibrillation ablation. next option is AV node ablation with permanent pacemaker. I will discuss with Dr. Bonilla. Jamal LUNA MD Nov 01, 2016 1:52 pm
[2016-11-01] MEDS: PANTOPRAZOLE 40 MG (PROTONIX) TAB PO SCH (14:50)
--- NOTE | 2016-11-01 15:09 | Cardiology Discharge Summary ---
Diagnosis/Chief Complaint Date of Admission October 31, 2016 Date of Discharge November 01, 2016 Admission Diagnosis peripheral arterial disease Atrial fibrillation Tachycardia Shortness of breath Hypertension Discharge Diagnosis atrial fibrillation Tachycardia Shortness of breath Hypertension Chief Complaint/HPI Chief Complaint/HPI 66-year-old gentleman with atrial fibrillation and rapid ventricular response, has been resistant to multiple medication. Was admitted for ARVIND and electrical cardioversion in addition to peripheral angiogram. Patient refused to lay down due to shortness of breath and back pain, does not want the procedure done, agreed on ARVIND, underwent the procedure, underwent attempt for electrical cardioversion which has failed. He was admitted and monitored overnight. Started on propafenone and digoxin again, had slightly better heart rate control. Patient is requesting to go home. His breathing is better, responded well to diuretics. And he will follow-up as an outpatient Discharge Summary Hospital Course Hospital Course He was admitted, started on propafenone and digoxin, heart rate is slightly better. Refusing peripheral angiogram, cannot lay down, his shortness of breath is better. Paroxysmal atrial fibrillation, failed sotalol and amiodarone in the past, currently restarted on propafenone and digoxin. Will be monitored. Peripheral arterial disease, nonhealing ulcer in the feet, I was planning for peripheral angiogram, patient expressed that he does not want to lay down, had back pain, even short of breath, did not want to have the procedure done. Hypertension, controlled on current medication, continue to monitor Hyperlipidemia, continue current medications History of syncope reporting improvement Obstructive sleep apnea/COPD Diabetes mellitus, followed and managed by primary care physician. Morbid obesity, BMI is 58. Educated on weight loss Labs Laboratory Tests 10/31/16 08:12: Hemoglobin 12.3L, Hematocrit 38L, Red Cell Distribution Width 17.0H, Prothrombin Time 19.9H, INR Comment 1.7H, Activated Partial Thromboplast Time 37H, Glucose Level 288H, Total Protein 6.1L, HDL Cholesterol 35L 10/31/16 22:37: Glucometer 199H 11/01/16 06:39: Glucometer 172H 11/01/16 10:24: Glucometer 254H Procedures None. 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" Vitals & I&Os Vital Signs Date Time Temp Pulse Resp B/P (MAP) Pulse Ox O2 Delivery O2 Flow Rate FiO2 11/01/16 14:48 97 3.00 11/01/16 13:00 109 11/01/16 11:53 97.6 20 116/75 Nasal Cannula General Appearance: Alert, Oriented X3, Cooperative, No Acute Distress HEENT: Atraumatic, PERRLA Respiratory: Clear to Auscultation, Normal Air Movement Cardiovascular: Normal S1, Normal S2, No Murmurs, Other (tachycardia, irregular ) Abdominal: Normal Bowel Sounds, Soft, No Tenderness, No Hepatosplenomegaly, No Masses Extremities: No Clubbing, No Cyanosis, Normal Pulses, No Tenderness/Swelling, Other (+2 edema) Skin: No Rashes, No Breakdown, No Significant Lesion Neuro: Normal Gait, Normal Speech, Strength at 5/5 X4 Ext, Normal Tone, Sensation Intact, Cranial Nerves 3-12 NL, Reflexes 2+ Psych/Mental Status: Mental Status NL, Mood NL Discharge Home Medications Reviewed and agree with Discharge Medication list on patient's Discharge Instruction sheet Instructions to Patient/Family Please see electonic discharge instructions given to patient. Clinical Quality Measures DVT/VTE Risk/Contraindication: Risk Factor Score Per Nursin RFS Level Per Nursing on Admit: 4+=Very High GABRIELA MARTINEZ MD Nov 01, 2016 15:09
[2016-11-01] MEDS ORDERED: METO2.5T PO (15:13)
[2016-11-01] MEDS ORDERED: DIGO250T15 PO (15:13)
[2016-11-01] MEDS ORDERED: PROP150T2 PO (15:13)
--- OUTSIDE RECORDS SUMMARY | 2016-11-15 16:41 | XMS REPORT | Continuity of Care Document ---
Author Author [facility] Organization [facility] Address Unknown Phone Unavailable Care Team Providers Care Behavioral Health Technician Name Role Phone PCP Unavailable Source Comments Some departments are not documenting in the electronic medical record. If you do not see the information that you expected, contact Release of Information in the Health Information Management department at [phone] for further assistance in locating additional records.[facility] Active Allergies and Adverse Reactions Not [...] Vaccine 2008 Prevnar/Pneumovax (#1) 2013 Influenza Vaccine 04/07/2017 Results from Last 3 Months Not on file
--- OUTSIDE RECORDS SUMMARY | 2016-11-15 16:43 | XMS REPORT | Continuity of Care Document ---
Author Author [facility] Ctr of [facility] C[facility] Address Unknown Phone Unavailable Allergies Active Description Code Type Severity Reaction Onset Reported/Identified Relationship to Patient Clinical Status Yes No Known Drug Allergies [id number] Drug Allergy Unknown N/ A 07/01/2008 Yes Singulair Drug Allergy 05/18/2009 Yes Singulair Drug Allergy N/A N/A 05/18/2009 Yes phentermine [id number] Drug Allergy Unknown N/A 12/26/2014 Medications Problems Date Dx Coded Attending Type Code Diagnosis Diagnosed By 07/06/1599 ESTRELLA DUBON APRN Ot B35.4 TINEA CORPORIS 07/06/1599 ESTRELLA DUBON APRN Ot I70.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 07/06/1599 ESTRELLA DUBON APRN Ot I87.323 CHRONIC VENOUS HTN W INFLAMMATION OF [place] 07/06/1599 ESTRELLA DUBON APRN Ot L02.32 FURUNCLE OF BUTTOCK 07/06/1599 ESTRELLA DUBON APRN Ot L22 DIAPER DERMATITIS 09/19/2008 THOMAS RODRIGUEZ APRN S 466.0 ACUTE BRONCHITIS 09/30/2008 THOMAS RODRIGUEZ APRN S 250.00 DIABETES MELLITUS 10/08/2008 THOMAS RODRIGUEZ APRN S 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 04/05/2009 THOMAS RODRIGUEZ APRN S 427.31 ATRIAL FIBRILLATION 04/05/2009 THOMAS RODRIGUEZ APRN V49.75 Amputation Right Leg Below Knee (___ cm ) 04/14/2009 THOMAS RODRIGUEZ APRN S 278.01 OBESITY MORBID BMI >40 05/05/2009 THOMAS RODRIGUEZ APRN S 724.5 BACKACHE 08/10/2009 THOMAS RODRIGUEZ APRN S 276.8 Hypokalemia 08/31/2009 THOMAS RODRIGUEZ APRN S 465.9 UPPER RESPIRATORY INFECTION 11/19/2009 THOMAS RODRIGUEZ APRN 228.00 HEMANGIOMA 11/25/2009 Ot 272.4 11/25/2009 Ot 397.0 11/25/2009 Ot 414.00 11/25/2009 Ot 424.0 11/25/2009 Ot 427.0 11/25/2009 Ot 785.1 11/25/2009 Ot 786.50 11/26/2009 Ot 401.9 11/26/2009 Ot 414.01 11/26/2009 Ot 785.1 11/26/2009 Ot 786.50 04/20/2010 Ot 850.9 04/20/2010 Ot 881.00 04/20/2010 Ot 916.0 04/20/2010 Ot 959.01 04/20/2010 Ot E000.8 04/20/2010 Ot E849.4 04/20/2010 Ot E885.9 08/23/2010 THOMAS RODRIGUEZ APRN V76.44 Visit For: Screening Exam Malignant Neoplasm Prostate 10/20/2010 THOMAS RODRIGUEZ APRN 493.00 ASTHMA EXTRINSIC 10/20/2010 THOMAS RODRIGUEZ APRN 530.81 ESOPHAGEAL REFLUX 08/29/2011 THOMAS RODRIGUEZ APRN 891.0 OPEN WOUND OF KNEE LEG (EXCEPT THIGH) AND ANKLE WITHOUT COMPLICATION 11/23/2011 Ot 250.00 DIAB KATELYN WO COMPL, TYPE II OR UNSPEC TY 11/23/2011 Ot 272.4 HYPERLIPIDEMIA NEC/NOS 11/23/2011 Ot 275.2 DIS MAGNESIUM METABOLISM 11/23/2011 Ot 276.1 HYPOSMOLALITY 11/23/2011 Ot 278.01 MORBID OBESITY 11/23/2011 Ot 318.0 MODERATE INTELLECTUAL DISABILITIES 11/23/2011 Ot 401.9 HYPERTENSION NOS 11/23/2011 Ot 786.09 RESPIRATORY ABNORM NEC 11/23/2011 Ot 786.59 CHEST PAIN NEC 11/23/2011 Ot V85.43 BODY MASS INDEX 50.0-59.9, ADULT 11/30/2011 Ot 459.81 VENOUS INSUFFICIENCY NOS 11/30/2011 Ot V58.30 ENCOUNTER FOR CHANGE OR REMOVAL OF NONSU 12/06/2011 THOMAS RODRIGUEZ APRN 600.01 BPH W/O OBSTRUCTUION 03/13/2012 Ot 250.00 DIAB KATELYN WO COMPL, TYPE II OR UNSPEC TY 03/13/2012 Ot 272.4 HYPERLIPIDEMIA NEC/NOS 03/13/2012 Ot 305.1 TOBACCO USE DISORDER 03/13/2012 Ot 319 UNSPECIFIED INTELLECTUAL DISABILITIES 03/13/2012 Ot 401.9 HYPERTENSION NOS 03/13/2012 Ot 530.81 ESOPHAGEAL REFLUX 03/13/2012 Ot 786.50 CHEST PAIN NOS 03/13/2012 Ot 789.06 ABDOMINAL PAIN, EPIGASTRIC 03/13/2012 Ot V58.69 OTH MED,LT,CURRENT USE 03/14/2012 THOMAS RODRIGUEZ APRN 786.2 COUGH 04/19/2012 Ot 788.1 DYSURIA 09/19/2012 Ot 327.23 09/19/2012 Ot 327.26 09/19/2012 Ot 327.51 10/05/2012 Ot 327.23 10/05/2012 Ot 327.51 11/07/2012 Ot 429.3 11/07/2012 Ot 786.50 11/07/2012 Ot 789.06 05/07/2013 GABRIELA MARTINEZ MD Ot 250.00 05/07/2013 GABRIELA MARTINEZ MD Ot 272.4 05/07/2013 GABIRELA MARTINEZ MD Ot 276.9 05/07/2013 GABRIELA MARTINEZ MD Ot 278.00 05/07/2013 GABRIELA MARTINEZ MD Ot 327.23 05/07/2013 GABRIELA MARTINEZ MD Ot 397.0 05/07/2013 GABRIELA MARTINEZ MD Ot 401.9 05/07/2013 GABRIELA MARTINEZ MD Ot 414.01 05/07/2013 GABRIELA MARTINEZ MD Ot 424.0 05/07/2013 GABRIELA MARTINEZ MD Ot 496 05/07/2013 GABRIELA MARTINEZ MD Ot 786.59 05/07/2013 GABRIELA MARTINEZ MD Ot E944.4 05/07/2013 GABRIELA MARTINEZ MD Ot V12.59 05/07/2013 GABRIELA MARTINEZ MD Ot V15.82 05/07/2013 GABRIELA MARTINEZ MD Ot V17.3 05/07/2013 GABRIELA MARTINEZ MD Ot V58.66 05/07/2013 GABRIELA MARTINEZ MD Ot V58.69 05/07/2013 GABRIELA MARTINEZ MD Ot V85.43 06/28/2013 VIKY MULLER, JUAN Valorie Ot 729.5 12/11/2013 JACKELYN RODRIGUEZ MD Ot 427.89 CARDIAC DYSRHYTHMIAS NEC 12/11/2013 JACKELYN RODRIGUEZ MD Ot 477.9 ALLERGIC RHINITIS NOS 12/11/2013 JACKELYN RODRIGUEZ MD Ot 786.50 CHEST PAIN NOS 06/18/2014 Ot 272.4 06/18/2014 Ot 272.4 06/18/2014 Ot 401.9 06/18/2014 Ot 427.0 06/18/2014 Ot 427.31 06/18/2014 Ot 786.50 06/18/2014 Ot V64.3 06/18/2014 Ot 272.4 06/18/2014 Ot 401.9 06/18/2014 Ot 272.4 06/18/2014 Ot 414.00 06/18/2014 Ot 715.36 06/18/2014 GABRIELA MARTINEZ MD Ot 272.4 06/18/2014 GABRIELA MARTINEZ MD Ot 414.01 06/18/2014 MIA BRAUN DO Ot 278.00 06/18/2014 MIA BRAUN DO Ot 414.00 06/18/2014 MIA BRAUN DO Ot 496 06/18/2014 MIA BRAUN DO Ot 786.09 06/18/2014 KAYLAH DEL TORO Ot 272.4 06/18/2014 KAYLAH DEL TORO Ot 401.9 06/18/2014 KAYLAH DEL TORO Ot 414.00 06/18/2014 KAYLAH DEL TORO Ot 427.0 06/18/2014 KAYLAH DEL TORO Ot 780.2 06/19/2014 WESLEY MULLER, EDEN Alcantara Ot 327.23 OBSTRUCTIVE SLEEP APNEA (ADULT) ( PEDIATR 08/04/2014 ROLAND MORENO TEMPLATE FITTER Ot 490 BRONCHITIS NOS 08/04/2014 ROLAND MORENO TEMPLATE FITTER Ot 786.2 COUGH 11/05/2014 Ot 715.36 11/05/2014 GABRIELA MARTINEZ MD Ot 272.4 11/05/2014 GABRIELA MARTINEZ MD Ot 414.01 11/05/2014 MIA BRAUN DO Ot 278.00 11/05/2014 MIA BRAUN DO Ot 414.00 11/05/2014 APARNAMIA MIMS DO Ot 496 11/05/2014 APARNA MIA CLINTON Ot 786.09 11/05/2014 [facility]AY[facility]H K Ot 272.4 11/05/2014 [facility] KAYLAH K Ot 401.9 11/05/2014 [facility], KAYLAH K Ot 414.00 11/05/2014 [facility], KAYLAH K Ot 427.0 11/05/2014 [facility], KAYLAH K Ot 780.2 11/12/2014 Ot 272.4 11/12/2014 Ot 401.9 11/12/2014 Ot 427.0 11/12/2014 Ot 427.31 11/12/2014 Ot 786.50 11/12/2014 Ot V64.3 11/12/2014 Ot 272.4 11/12/2014 Ot 401.9 11/12/2014 Ot 272.4 11/12/2014 Ot 414.00 11/12/2014 Ot 715.36 11/12/2014 MICHELLE MULLER, GABRIELA Christine Ot 272.4 11/12/2014 MICHELLE MULLER, GABRIELA Christine Ot 414.01 11/12/2014 MIA BRAUN DO Ot 278.00 11/12/2014 APARNA MIA CLINTON Ot 414.00 11/12/2014 APARNA MIA CLINTON Ot 496 11/12/2014 APARNA MIA CLINTON Ot 786.09 11/12/2014 [facility] KAY[facility]H K Ot 272.4 11/12/2014 [facility], KAYLAH K Ot 401.9 11/12/2014 [facility], KAYLAH K Ot 414.00 11/12/2014 [facility], KAYLAH K Ot 427.0 11/12/2014 [facility], KAYLAH K Ot 780.2 11/12/2014 MICHELLE MULLER, GABRIELA Christine Ot 414.01 11/12/2014 MICHELLE MULLER, GABRIELA Christine Ot 427.0 11/12/2014 MICHELLE MULLER, GABRIELA Christine Ot 780.2 11/12/2014 MICHELLE MULLER, GABRIELA Christine Ot 785.1 11/12/2014 MICHELLE MULLER, GABRIELA J Ot 414.01 11/12/2014 MICHELLE MULLER, GABRIELA J Ot 427.0 11/12/2014 MICHELLE MULLER, GABRIELA Christine Ot 780.2 11/12/2014 MICHELLE MULLER, GABRIELA J Ot 785.1 11/18/2014 MICHELLE MULLER, GABRIELA J Ot 272.4 11/18/2014 MICHELLE MULLER, GABRIELA J Ot 401.9 11/18/2014 MICHELLE MULLER, GABRIELA J Ot 414.00 11/18/2014 MICHELLE MULLER, GABRIELA J Ot 786.50 12/04/2014 MICHELLE MULLER, GABRIELA J Ot 414.01 12/04/2014 MICHELLE MULLER, GABRIELA Christine Ot 427.0 12/04/2014 MICHELLE MULLER, GABRIELA Christine Ot 780.2 12/04/2014 MICHELLE MULLER, GABRIELA Christine Ot 785.1 12/09/2014 GABRIELA MARTINEZ MD Ot 272.4 12/09/2014 MICHELLE MULLER, GABRIELA J Ot 401.9 12/09/2014 MICHELLE MULLER, GABRIELA J Ot 414.00 12/09/2014 MICHELLE MULLER, GABRIELA J Ot 786.50 12/11/2014 MICHELLE MULLER, GABRIELA Christine Ot 414.01 12/11/2014 MICHELLE MULLER, GABRIELA Christine Ot 427.0 12/11/2014 MICHELLE MULLER, GABRIELA J Ot 780.2 12/11/2014 MICHELLE MULLER, GABRIELA Christine Ot 785.1 12/26/2014 MICHAEL MULLER, JACKELYN Godinez Ot 486 PNEUMONIA, ORGANISM NOS 12/26/2014 JACKELYN RODRIGUEZ MD Ot 753.10 CYSTIC KIDNEY DISEASE, UNSPECIFIED 12/26/2014 JACKELYN RODRIGUEZ MD Ot 787.01 NAUSEA WITH VOMITING 12/26/2014 JACKELYN RODRIGUEZ MD Ot 787.91 DIARRHEA 12/26/2014 JACKELYN RODRIGUEZ MD Ot 789.00 ABDOMINAL PAIN, UNSPECIFIED SITE 01/12/2015 FRED MEDINA DO Ot 112.3 CUTANEOUS CANDIDIASIS 01/12/2015 FRED MEDINA DO Ot 682.9 CELLULITIS NOS 01/12/2015 FRED MEDINA DO Ot 707.9 CHRONIC SKIN ULCER NOS 01/12/2015 FRED MEDINA DO Ot 789.00 ABDOMINAL PAIN, UNSPECIFIED SITE 01/27/2015 MICHELLE MULLER, GABRIELA Christine Ot 272.4 01/27/2015 MICHELLE MULLER, GABRIELA Christine Ot 401.9 01/27/2015 MICHELLE MULLER, GABRIELA Christine Ot 414.00 01/27/2015 GABRIELA MARTINEZ MD Ot 786.50 06/24/2015 GABRIELA MARTINEZ MD J Ot E78.2 06/24/2015 MICHELLE MULLER, GABRIELA J Ot I10 06/24/2015 GABRIELA MARTINEZ MD J Ot I25.10 06/24/2015 GABRIELA MARTINEZ MD Ot I47.1 07/07/2015 GABRIELA MARTINEZ MD Ot E78.5 07/07/2015 GABRIELA MARTINEZ MD J Ot I10 07/07/2015 GABRIELA MARTINEZ MD J Ot I25.10 07/07/2015 GABRIELA MARTINEZ MD J Ot I47.1 07/08/2015 GABRIELA MARTINEZ MD J Ot E78.2 07/08/2015 GABRIELA MARTINEZ MD J Ot I10 07/08/2015 GABRIELA MARTINEZ MD J Ot I25.10 07/08/2015 GABRIELA MARTINEZ MD J Ot I47.1 07/09/2015 GABRIELA MARTINEZ MD Ot E78.5 07/09/2015 GABRIELA MARTINEZ MD J Ot I10 07/09/2015 GABRIELA MARTINEZ MD Ot I25.10 07/09/2015 GABRIELA MARTINEZ MD J Ot I47.1 07/10/2015 GABRIELA MARTINEZ MD J Ot E78.2 07/10/2015 GABRIELA MARTINEZ MD J Ot I10 07/10/2015 GABRIELA MARTINEZ MD J Ot I25.10 07/10/2015 GABRIELA MARTINEZ MD J Ot I47.1 07/17/2015 GABRIELA MARTINEZ MD J Ot E78.2 07/17/2015 GABRIELA MARTINEZ MD J Ot I10 07/17/2015 GABRIELA MARTINEZ MD J Ot I25.10 07/17/2015 GABRIELA MARTINEZ MD J Ot I47.1 12/16/2015 CHRISTIANO AQUINO Ot E66.01 MORBID (SEVERE) OBESITY DUE TO EXCESS CA 12/16/2015 MARIA CHEN CHRISTIANO Quinton Ot F79 UNSPECIFIED INTELLECTUAL DISABILITIES 12/16/2015 MARIA CHEN CHRISTIANO Quinton Ot G89.29 OTHER CHRONIC PAIN 12/16/2015 MARIA CHEN CHRISTIANO Quinton Ot M25.561 PAIN IN RIGHT KNEE 12/16/2015 MARIA CHEN CHRISTIANO L Ot M25.562 PAIN IN LEFT KNEE 12/16/2015 MARIA CHEN CHRISTIANO L Ot Z87.891 PERSONAL HISTORY OF NICOTINE DEPENDENCE 12/17/2015 MAIRA CHEN CHRISTIANO Quinton Ot E66.01 MORBID (SEVERE) OBESITY DUE TO EXCESS CA 12/17/2015 MARIA CHEN CHRISTIANO L Ot F79 UNSPECIFIED INTELLECTUAL DISABILITIES 12/17/2015 MARIA CHEN CHRISTIANO Quinton Ot G89.29 OTHER CHRONIC PAIN 12/17/2015 MARIA CHEN CHRISTIANO L Ot M25.561 PAIN IN RIGHT KNEE 12/17/2015 MARIA CHEN CHRISTIANO L Ot M25.562 PAIN IN LEFT KNEE 12/17/2015 MARIA CHEN CHRISTIANO Quinton Ot Z87.891 PERSONAL HISTORY OF NICOTINE DEPENDENCE 01/01/2016 MARIA CHEN CHRISTIANO Quinton Ot E66.01 MORBID (SEVERE) OBESITY DUE TO EXCESS CA 01/01/2016 MARIA CHEN CHRISTIANO Quinton Ot F79 UNSPECIFIED INTELLECTUAL DISABILITIES 01/01/2016 MARIA CHEN CHRISTIANO Quinton Ot G89.29 OTHER CHRONIC PAIN 01/01/2016 MARIA CHEN CHRISTIANO L Ot M25.561 PAIN IN RIGHT KNEE 01/01/2016 CHRISTIANO AQUINO Ot M25.562 PAIN IN LEFT KNEE 01/01/2016 MARIA CHEN CHRISTIANO Quinton Ot Z87.891 PERSONAL HISTORY OF NICOTINE DEPENDENCE 02/05/2016 Ot 250.00 02/05/2016 Ot 272.4 02/05/2016 Ot 401.9 02/05/2016 Ot 414.00 02/05/2016 Ot 427.0 02/05/2016 Ot 785.1 02/05/2016 Ot V58.66 02/05/2016 Ot V58.69 02/09/2016 GABRIELA MARTINEZ MD Ot 272.4 HYPERLIPIDEMIA NEC/NOS 02/09/2016 GABRIELA MARTINEZ MD Ot 401.9 HYPERTENSION NOS 02/09/2016 GABRIELA MARTINEZ MD Ot 414.00 CORON ATHEROSCLER NOS TYPE VESSEL, NATIV 02/09/2016 GABRIELA MARTINEZ MD Ot 786.50 CHEST PAIN NOS 02/09/2016 WESLEY MULLER, EDEN Alcantara Ot 486 PNEUMONIA, ORGANISM NOS 02/09/2016 GABRIELA MARTINEZ MD Ot E78.2 MIXED HYPERLIPIDEMIA 02/09/2016 GABRIELA MARTINEZ MD Ot I10 ESSENTIAL (PRIMARY) HYPERTENSION 02/09/2016 GABRIELA MARTINEZ MD Ot I25.10 ATHSCL HEART DISEASE OF [place] CORONARY 02/09/2016 GABRIELA MARTINEZ MD Ot I47.1 SUPRAVENTRICULAR TACHYCARDIA 02/09/2016 GABRIELA MARTINEZ MD Ot E78.2 MIXED HYPERLIPIDEMIA 02/09/2016 GABRIELA MARTINEZ MD Ot I10 ESSENTIAL (PRIMARY) HYPERTENSION 02/09/2016 GABRIELA MARTINEZ MD Ot I25.10 ATHSCL HEART DISEASE OF [place] CORONARY 02/09/2016 GABRIELA MARTINEZ MD Ot I47.1 SUPRAVENTRICULAR TACHYCARDIA 02/09/2016 GABRIELA MARTINEZ MD Ot E78.5 HYPERLIPIDEMIA, UNSPECIFIED 02/09/2016 GABRIELA MARTINEZ MD Ot I10 ESSENTIAL (PRIMARY) HYPERTENSION 02/09/2016 GABRIELA MARTINEZ MD Ot I25.10 ATHSCL HEART DISEASE OF [place] CORONARY 02/09/2016 GABRIELA MARTINEZ MD Ot I47.1 SUPRAVENTRICULAR TACHYCARDIA 02/09/2016 MANDI COSBY DO Ot A41.9 SEPSIS, UNSPECIFIED ORGANISM 02/09/2016 MANDI COSBY DO Ot E11.65 TYPE 2 DIABETES MELLITUS WITH HYPERGLYCE 02/09/2016 MANDI COSBY DO Ot F79 UNSPECIFIED INTELLECTUAL DISABILITIES 02/09/2016 MANDI COSBY DO Ot G47.33 OBSTRUCTIVE SLEEP APNEA (ADULT) (PEDIATR 02/09/2016 MANDI COSBY DO Ot I12.9 HYPERTENSIVE CHRONIC KIDNEY DISEASE W ST 02/09/2016 MANDI COSBY DO Ot I25.10 ATHSCL HEART DISEASE OF [place] CORONARY 02/09/2016 MANDI COSBY DO Ot I48.0 PAROXYSMAL ATRIAL FIBRILLATION 02/09/2016 MANDI COSBY DO Ot I82.621 ACUTE EMBOLISM AND THROMBOSIS OF [place] 02/09/2016 COSBY DO, MANDI Ot I87.2 VENOUS INSUFFICIENCY (CHRONIC) (PERIPHER 02/09/2016 KENDRICK COSBY DOI Ot J44.9 CHRONIC OBSTRUCTIVE PULMONARY DISEASE, U 02/09/2016 KENDRICK COSBY DOI Ot J45.909 UNSPECIFIED ASTHMA, UNCOMPLICATED 02/09/2016 KENDRICK COSBY DOI Ot L03.115 CELLULITIS OF RIGHT LOWER LIMB 02/09/2016 KENDRICK COSBY DOI Ot L03.116 CELLULITIS OF LEFT LOWER LIMB 02/09/2016 KENDRICK COSBY DOI Ot L03.311 CELLULITIS OF ABDOMINAL WALL 02/09/2016 KENDRICK COSBY DOI Ot N18.9 CHRONIC KIDNEY DISEASE, UNSPECIFIED 02/09/2016 MANDI COSBY DO Ot R47.9 UNSPECIFIED SPEECH DISTURBANCES 02/09/2016 MANDI COSBY DO Ot T82.868A THROMBOSIS OF VASCULAR PROSTH DEV/GRFT, 02/09/2016 MANDI COSBY DO Ot Z68.36 BODY MASS INDEX (BMI) 36.0-36.9, ADULT 02/09/2016 MANDI COSBY DO Ot Z87.891 PERSONAL HISTORY OF NICOTINE DEPENDENCE 02/09/2016 KENDRICK COSBY DOI Ot Z91.138 PATIENT'S UNINTENT UNDRDOSE OF MEDS LUCIANA 02/10/2016 MANDI COSBY DO Ot A41.9 SEPSIS, UNSPECIFIED ORGANISM 02/10/2016 KENDRICK COSBY DOI Ot E11.65 TYPE 2 DIABETES MELLITUS WITH HYPERGLYCE 02/10/2016 KENDRICK COSBY DOI Ot F79 UNSPECIFIED INTELLECTUAL DISABILITIES 02/10/2016 MANDI COSBY DO Ot G47.33 OBSTRUCTIVE SLEEP APNEA (ADULT) (PEDIATR 02/10/2016 MANDI COSBY DO Ot I12.9 HYPERTENSIVE CHRONIC KIDNEY DISEASE W ST 02/10/2016 KENDRICK COSBY DOI Ot I25.10 ATHSCL HEART DISEASE OF [place] CORONARY 02/10/2016 KENDRICK COSBY DOI Ot I48.0 PAROXYSMAL ATRIAL FIBRILLATION 02/10/2016 KENDRICK COSBY DOI Ot I82.621 ACUTE EMBOLISM AND THROMBOSIS OF [place] 02/10/2016 KENDRICK COSBY DOI Ot I87.2 VENOUS INSUFFICIENCY (CHRONIC) (PERIPHER 02/10/2016 MANDI COSBY DO Ot J44.9 CHRONIC OBSTRUCTIVE PULMONARY DISEASE, U 02/10/2016 MANDI COSBY DO Ot J45.909 UNSPECIFIED ASTHMA, UNCOMPLICATED 02/10/2016 MANDI COSBY DO Ot L03.115 CELLULITIS OF RIGHT LOWER LIMB 02/10/2016 MANDI COSBY DO Ot L03.116 CELLULITIS OF LEFT LOWER LIMB 02/10/2016 MANDI COSBY DO Ot L03.311 CELLULITIS OF ABDOMINAL WALL 02/10/2016 KENDRICK COSBY DOI Ot N18.9 CHRONIC KIDNEY DISEASE, UNSPECIFIED 02/10/2016 MANDI COSBY DO Ot R47.9 UNSPECIFIED SPEECH DISTURBANCES 02/10/2016 MANDI COSBY DO Ot T82.868A THROMBOSIS OF VASCULAR PROSTH DEV/GRFT, 02/10/2016 MANDI COSBY DO Ot Z68.36 BODY MASS INDEX (BMI) 36.0-36.9, ADULT 02/10/2016 MANDI COSBY DO Ot Z87.891 PERSONAL HISTORY OF NICOTINE DEPENDENCE 02/10/2016 MANDI COSBY DO Ot Z91.138 PATIENT'S UNINTENT UNDRDOSE OF MEDS LUCIANA 02/10/2016 MANDI COSBY DO Ot A41.9 SEPSIS, UNSPECIFIED ORGANISM 02/10/2016 MANDI COSBY DO Ot B37.9 CANDIDIASIS, UNSPECIFIED 02/10/2016 KENDRICK COSBY DOI Ot E11.65 TYPE 2 DIABETES MELLITUS WITH HYPERGLYCE 02/10/2016 MANDI COSBY DO Ot E66.01 MORBID (SEVERE) OBESITY DUE TO EXCESS CA 02/10/2016 KENDRICK COSBY DOI Ot F79 UNSPECIFIED INTELLECTUAL DISABILITIES 02/10/2016 MANDI COSBY DO Ot G47.33 OBSTRUCTIVE SLEEP APNEA (ADULT) (PEDIATR 02/10/2016 KENDRICK COSBY DOI Ot I12.9 HYPERTENSIVE CHRONIC KIDNEY DISEASE W ST 02/10/2016 KENDRICK COSBY DOI Ot I25.10 ATHSCL HEART DISEASE OF [place] CORONARY 02/10/2016 KENDRICK COSBY DOI Ot I48.0 PAROXYSMAL ATRIAL FIBRILLATION 02/10/2016 MANDI COSBY DO Ot I82.621 ACUTE EMBOLISM AND THROMBOSIS OF [place] 02/10/2016 KENDRICK COSBY DOI Ot I87.2 VENOUS INSUFFICIENCY (CHRONIC) (PERIPHER 02/10/2016 KENDRICK COSBY DOI Ot J44.9 CHRONIC OBSTRUCTIVE PULMONARY DISEASE, U 02/10/2016 MANDI COSBY DO Ot J45.909 UNSPECIFIED ASTHMA, UNCOMPLICATED 02/10/2016 COSBYMANDI HYLTON DO Ot L03.115 CELLULITIS OF RIGHT LOWER LIMB 02/10/2016 COSBYMANDI HYLTON DO Ot L03.116 CELLULITIS OF LEFT LOWER LIMB 02/10/2016 COSBYMANDI HYLTON DO Ot L03.311 CELLULITIS OF ABDOMINAL WALL 02/10/2016 COSBYMANDI HYLTON DO Ot N18.9 CHRONIC KIDNEY DISEASE, UNSPECIFIED 02/10/2016 MANDI COSBY DO Ot R47.9 UNSPECIFIED SPEECH DISTURBANCES 02/10/2016 MANDI COSBY DO Ot T82.868A THROMBOSIS OF VASCULAR PROSTH DEV/GRFT, 02/10/2016 MANDI COSBY DO Ot Z68.36 BODY MASS INDEX (BMI) 36.0-36.9, ADULT 02/10/2016 COSBYWARNER CLINTON MANDI Ot Z87.891 PERSONAL HISTORY OF NICOTINE DEPENDENCE 02/10/2016 COSBYWARNER CLINTON MANDI Ot Z91.138 PATIENT'S UNINTENT UNDRDOSE OF MEDS LUCIANA 02/11/2016 Ot 401.9 HYPERTENSION NOS 02/11/2016 Ot 427.0 [place] ATRIAL TACHYCARDIA 02/11/2016 Ot 427.31 ATRIAL FIBRILLATION 02/11/2016 Ot 786.50 CHEST PAIN NOS 02/11/2016 Ot V64.3 NO PROC FOR REASONS NEC 02/11/2016 Ot 272.4 HYPERLIPIDEMIA NEC/NOS 02/11/2016 Ot 401.9 HYPERTENSION NOS 02/11/2016 Ot 272.4 HYPERLIPIDEMIA NEC/NOS 02/11/2016 Ot 414.00 CORON ATHEROSCLER NOS TYPE VESSEL, NATIV 02/11/2016 KAYLAH DEL TORO Ot 272.4 HYPERLIPIDEMIA NEC/NOS 02/11/2016 KAYLAH DEL TORO Ot 401.9 HYPERTENSION NOS 02/11/2016 KAYLAH DEL TORO Ot 414.00 CORON ATHEROSCLER NOS TYPE VESSEL, NATIV 02/11/2016 KAYLAH DEL TORO Ot 427.0 PAROX ATRIAL TACHYCARDIA 02/11/2016 KAYLAH DEL TORO Ot 780.2 SYNCOPE AND COLLAPSE 02/11/2016 GABRIELA MARTINEZ MD Ot 414.01 CORONARY ATHEROSCLEROSIS OF [place] CORON 02/11/2016 GABRIELA MARTINEZ MD Ot 427.0 PAROX ATRIAL TACHYCARDIA 02/11/2016 GABRIELA MARTINEZ MD Ot 780.2 SYNCOPE AND COLLAPSE 02/11/2016 GABRIELA MARTINEZ MD Ot 785.1 PALPITATIONS 02/11/2016 GABRIELA MARTINEZ MD Ot 272.4 HYPERLIPIDEMIA NEC/NOS 02/11/2016 GABRIELA MARTINEZ MD Ot 401.9 HYPERTENSION NOS 02/11/2016 GABRIELA MARTINEZ MD Ot 414.00 CORON ATHEROSCLER NOS TYPE VESSEL, NATIV 02/11/2016 GABRIELA MARTINEZ MD Ot 786.50 CHEST PAIN NOS 02/11/2016 WESLEY MULLER, EDEN Alcantara Ot 486 PNEUMONIA, ORGANISM NOS 02/11/2016 GABRIELA MARTINEZ MD Ot E78.2 MIXED HYPERLIPIDEMIA 02/11/2016 GABRIELA MARTINEZ MD Ot I10 ESSENTIAL (PRIMARY) HYPERTENSION 02/11/2016 GABRIELA MARTINEZ MD Ot I25.10 ATHSCL HEART DISEASE OF [place] CORONARY 02/11/2016 GABRIELA MARTINEZ MD Ot I47.1 SUPRAVENTRICULAR TACHYCARDIA 02/11/2016 GABRIELA MARTINEZ MD Ot E78.2 MIXED HYPERLIPIDEMIA 02/11/2016 GABRIELA MARTINEZ MD Ot I10 ESSENTIAL (PRIMARY) HYPERTENSION 02/11/2016 GABRIELA MARTINEZ MD Ot I25.10 ATHSCL HEART DISEASE OF [place] CORONARY 02/11/2016 GABRIELA MARTINEZ MD Ot I47.1 SUPRAVENTRICULAR TACHYCARDIA 02/11/2016 GABRIELA MARTINEZ MD Ot E78.5 HYPERLIPIDEMIA, UNSPECIFIED 02/11/2016 GABRIELA MARTINEZ MD Ot I10 ESSENTIAL (PRIMARY) HYPERTENSION 02/11/2016 GABRIELA MARTINEZ MD Ot I25.10 ATHSCL HEART DISEASE OF [place] CORONARY 02/11/2016 GABRIELA MARTINEZ MD Ot I47.1 SUPRAVENTRICULAR TACHYCARDIA 02/25/2016 ESTRELLA DUBON TEMPLATE FITTER Ot E11.65 TYPE 2 DIABETES MELLITUS WITH HYPERGLYCE 02/25/2016 ESTRELLA DUBON TEMPLATE FITTER Ot L97.219 NON-PRESSURE CHRONIC ULCER OF RIGHT CALF 02/25/2016 ESTRELLA DUBON TEMPLATE FITTER Ot L97.812 NON-PRS CHRONIC ULCER OTH PRT R LOW LEG 02/25/2016 ESTRELLA DUBON TEMPLATE FITTER Ot L97.822 NON-PRS CHRONIC ULCER OTH PRT L LOW LEG 05/18/2016 Ot 401.9 HYPERTENSION NOS 05/18/2016 Ot 427.0 [place] ATRIAL TACHYCARDIA 05/18/2016 Ot 427.31 ATRIAL FIBRILLATION 05/18/2016 Ot 786.50 CHEST PAIN NOS 05/18/2016 Ot V64.3 NO PROC FOR REASONS NEC 05/18/2016 Ot 272.4 HYPERLIPIDEMIA NEC/NOS 05/18/2016 Ot 401.9 HYPERTENSION NOS 05/18/2016 Ot 272.4 HYPERLIPIDEMIA NEC/NOS 05/18/2016 Ot 414.00 CORON ATHEROSCLER NOS TYPE VESSEL, NATIV 05/18/2016 KAYLAH DEL TORO Ot 272.4 HYPERLIPIDEMIA NEC/NOS 05/18/2016 SULMA CHEN KAYLAH K Ot 401.9 HYPERTENSION NOS 05/18/2016 KAYLAH DEL TORO Ot 414.00 CORON ATHEROSCLER NOS TYPE VESSEL, NATIV 05/18/2016 KAYLAH DEL TORO Ot 427.0 [place] ATRIAL TACHYCARDIA 05/18/2016 KAYLAH DEL TORO Ot 780.2 SYNCOPE AND COLLAPSE 05/18/2016 GABRIELA MARTINEZ MD Ot 414.01 CORONARY ATHEROSCLEROSIS OF [place] CORON 05/18/2016 GABRIELA MARTINEZ MD Ot 427.0 [place] ATRIAL TACHYCARDIA 05/18/2016 GABRIELA MARTINEZ MD Ot 780.2 SYNCOPE AND COLLAPSE 05/18/2016 GABRIELA MARTNIEZ MD Ot 785.1 PALPITATIONS 05/18/2016 GABRIELA MARTINEZ MD Ot 272.4 HYPERLIPIDEMIA NEC/NOS 05/18/2016 GABRIELA MARTINEZ MD Ot 401.9 HYPERTENSION NOS 05/18/2016 GABRIELA MARTINEZ MD Ot 414.00 CORON ATHEROSCLER NOS TYPE VESSEL, NATIV 05/18/2016 GABRIELA MARTINEZ MD Ot 786.50 CHEST PAIN NOS 05/18/2016 WESLEY MULLER, EDEN Alcantara Ot 486 PNEUMONIA, ORGANISM NOS 05/18/2016 GABRIELA MARTINEZ MD Ot E78.2 MIXED HYPERLIPIDEMIA 05/18/2016 GABRIELA MARTINEZ MD Ot I10 ESSENTIAL (PRIMARY) HYPERTENSION 05/18/2016 GABRIELA MARTINEZ MD Ot I25.10 ATHSCL HEART DISEASE OF [place] CORONARY 05/18/2016 GABRIELA MARTINEZ MD Ot I47.1 SUPRAVENTRICULAR TACHYCARDIA 05/18/2016 GABRIELA MARTINEZ MD Ot E78.2 MIXED HYPERLIPIDEMIA 05/18/2016 GABRIELA MARTINEZ MD Ot I10 ESSENTIAL (PRIMARY) HYPERTENSION 05/18/2016 GABRIELA MARTINEZ MD Ot I25.10 ATHSCL HEART DISEASE OF [place] CORONARY 05/18/2016 GABRIELA MARTINEZ MD Ot I47.1 SUPRAVENTRICULAR TACHYCARDIA 05/18/2016 GABRIELA MARTINEZ MD Ot E78.5 HYPERLIPIDEMIA, UNSPECIFIED 05/18/2016 GABRIELA MARTINEZ MD Ot I10 ESSENTIAL (PRIMARY) HYPERTENSION 05/18/2016 GABRIELA MARTINEZ MD Ot I25.10 ATHSCL HEART DISEASE OF [place] CORONARY 05/18/2016 GABRIELA MARTINEZ MD Ot I47.1 SUPRAVENTRICULAR TACHYCARDIA 06/01/2016 GABRIELA MARTINEZ MD Ot E66.01 MORBID (SEVERE) OBESITY DUE TO EXCESS CA 06/01/2016 GABRIELA MARTINEZ MD Ot I48.0 PAROXYSMAL ATRIAL FIBRILLATION 06/01/2016 GABRIELA MARTINEZ MD Ot Z68.43 BODY MASS INDEX (BMI) 50-59.9 , ADULT 06/01/2016 GABRIELA MARTINEZ MD Ot E11.59 TYPE 2 DIABETES MELLITUS WITH OTH CIRCUL 06/01/2016 GABRIELA MARTINEZ MD Ot E66.01 MORBID (SEVERE) OBESITY DUE TO EXCESS CA 06/01/2016 GABRIELA MARTINEZ MD Ot E78.5 HYPERLIPIDEMIA, UNSPECIFIED 06/01/2016 GABRIELA MARTINEZ MD Ot F79 UNSPECIFIED INTELLECTUAL DISABILITIES 06/01/2016 GABRIELA MARTINEZ MD Ot F89 UNSPECIFIED DISORDER OF PSYCHOLOGICAL DE 06/01/2016 GABRIELA MARTINEZ MD Ot G47.33 OBSTRUCTIVE SLEEP APNEA (ADULT) (PEDIATR 06/01/2016 GABRIELA MARTINEZ MD Ot I10 ESSENTIAL (PRIMARY) HYPERTENSION 06/01/2016 GABRIELA MARTINEZ MD Ot I25.10 ATHSCL HEART DISEASE OF [place] CORONARY 06/01/2016 GABRIELA MARTINEZ MD Ot I48.0 PAROXYSMAL ATRIAL FIBRILLATION 06/01/2016 GABRIELA MARTINEZ MD Ot I65.29 OCCLUSION AND STENOSIS OF UNSPECIFIED CA 06/01/2016 GABRIELA MARTINEZ MD Ot I73.9 PERIPHERAL VASCULAR DISEASE, UNSPECIFIED 06/01/2016 GABRIELA MARTINEZ MD Ot J30.2 OTHER SEASONAL ALLERGIC RHINITIS 06/01/2016 GABRIELA MARTINEZ MD Ot J44.9 CHRONIC OBSTRUCTIVE PULMONARY DISEASE, U 06/01/2016 GABRIELA MARTINEZ MD Ot K21.9 GASTRO-ESOPHAGEAL REFLUX DISEASE WITHOUT 06/01/2016 GABRIELA MARTINEZ MD Ot L03.115 CELLULITIS OF RIGHT LOWER LIMB 06/01/2016 GABRIELA MARTINEZ MD Ot L03.116 CELLULITIS OF LEFT LOWER LIMB 06/01/2016 GABRIELA MARTINEZ MD Ot M19.90 UNSPECIFIED OSTEOARTHRITIS, UNSPECIFIED 06/01/2016 GABRIELA MARTINEZ MD Ot M54.9 DORSALGIA, UNSPECIFIED 06/01/2016 GABRIELA MARTINEZ MD, Ot Z68.43 BODY MASS INDEX (BMI) 50-59.9 , ADULT 06/01/2016 GABRIELA MARTINEZ MD Ot Z79.01 DETENTION (CURRENT) USE OF ANTICOAGULANT 06/01/2016 GABRIELA MARTINEZ MD Ot Z87.891 PERSONAL HISTORY OF NICOTINE DEPENDENCE 06/01/2016 GABRIELA MARTINEZ MD Ot Z95.818 PRESENCE OF OTHER CARDIAC IMPLANTS AND G 06/01/2016 GABRIELA MARTINEZ MD Ot E11.59 TYPE 2 DIABETES MELLITUS WITH OTH CIRCUL 06/01/2016 GABRIELA MARTINEZ MD Ot E66.01 MORBID (SEVERE) OBESITY DUE TO EXCESS CA 06/01/2016 GABRIELA MARTINEZ MD Ot E78.5 HYPERLIPIDEMIA, UNSPECIFIED 06/01/2016 GABRIELA MARTINEZ MD Ot F79 UNSPECIFIED INTELLECTUAL DISABILITIES 06/01/2016 GABRIELA MARTINEZ MD Ot F89 UNSPECIFIED DISORDER OF PSYCHOLOGICAL DE 06/01/2016 GABRIELA MARTINEZ MD Ot G47.33 OBSTRUCTIVE SLEEP APNEA (ADULT) (PEDIATR 06/01/2016 GABRIELA MARTINEZ MD Ot I10 ESSENTIAL (PRIMARY) HYPERTENSION 06/01/2016 GABRIELA MARTINEZ MD Ot I25.10 ATHSCL HEART DISEASE OF [place] CORONARY 06/01/2016 GABRIELA MARTINEZ MD Ot I48.0 PAROXYSMAL ATRIAL FIBRILLATION 06/01/2016 GABRIELA MARTINEZ MD Ot I65.29 OCCLUSION AND STENOSIS OF UNSPECIFIED CA 06/01/2016 GABRIELA MARTINEZ MD Ot I73.9 PERIPHERAL VASCULAR DISEASE, UNSPECIFIED 06/01/2016 MICHELLE MD, BASHAR J Ot J30.2 OTHER SEASONAL ALLERGIC RHINITIS 06/01/2016 GABRIELA MARTINEZ MD Ot J44.9 CHRONIC OBSTRUCTIVE PULMONARY DISEASE, U 06/01/2016 GABRIELA MARTINEZ MD Ot K21.9 GASTRO-ESOPHAGEAL REFLUX DISEASE WITHOUT 06/01/2016 GABRIELA MARTINEZ MD Ot L03.115 CELLULITIS OF RIGHT LOWER LIMB 06/01/2016 GABRIELA MARTINEZ MD Ot L03.116 CELLULITIS OF LEFT LOWER LIMB 06/01/2016 GABRIELA MARTINEZ MD Ot M19.90 UNSPECIFIED OSTEOARTHRITIS, UNSPECIFIED 06/01/2016 GABRIELA MARTINEZ MD Ot M54.9 DORSALGIA, UNSPECIFIED 06/01/2016 GABRIELA MARTINEZ MD Ot Z68.43 BODY MASS INDEX (BMI) 50-59.9 , ADULT 06/01/2016 GABRIELA MARTINEZ MD Ot Z79.01 DETENTION (CURRENT) USE OF ANTICOAGULANT 06/01/2016 GABRIELA MARTINEZ MD Ot Z87.891 PERSONAL HISTORY OF NICOTINE DEPENDENCE 06/01/2016 GABRIELA MARTINEZ MD Ot Z95.818 PRESENCE OF OTHER CARDIAC IMPLANTS AND G 06/01/2016 GABRIELA MARTINEZ MD Ot E11.59 TYPE 2 DIABETES MELLITUS WITH OTH CIRCUL 06/01/2016 GABRIELA MARTINEZ MD Ot E66.01 MORBID (SEVERE) OBESITY DUE TO EXCESS CA 06/01/2016 GABRIELA MARTINEZ MD Ot E78.5 HYPERLIPIDEMIA, UNSPECIFIED 06/01/2016 GABRIELA MARTINEZ MD Ot F79 UNSPECIFIED INTELLECTUAL DISABILITIES 06/01/2016 GABRIELA MARTINEZ MD Ot F89 UNSPECIFIED DISORDER OF PSYCHOLOGICAL DE 06/01/2016 GABRIELA MARTINEZ MD Ot G47.33 OBSTRUCTIVE SLEEP APNEA (ADULT) (PEDIATR 06/01/2016 GABRIELA MARTINEZ MD Ot I10 ESSENTIAL (PRIMARY) HYPERTENSION 06/01/2016 GABRIELA MARTINEZ MD Ot I25.10 ATHSCL HEART DISEASE OF [place] CORONARY 06/01/2016 GABRIELA MARTINEZ MD Ot I48.0 PAROXYSMAL ATRIAL FIBRILLATION 06/01/2016 GABRIELA MARTINEZ MD Ot I65.29 OCCLUSION AND STENOSIS OF UNSPECIFIED CA 06/01/2016 GABRIELA MARTINEZ MD Ot I73.9 PERIPHERAL VASCULAR DISEASE, UNSPECIFIED 06/01/2016 GABRIELA MARTINEZ MD Ot J30.2 OTHER SEASONAL ALLERGIC RHINITIS 06/01/2016 GABRIELA MARTINEZ MD Ot J44.9 CHRONIC OBSTRUCTIVE PULMONARY DISEASE, U 06/01/2016 GABRIELA MARTINEZ MD Ot K21.9 GASTRO-ESOPHAGEAL REFLUX DISEASE WITHOUT 06/01/2016 GABRIELA MARTINEZ MD Ot L03.115 CELLULITIS OF RIGHT LOWER LIMB 06/01/2016 GABRIELA MARTINEZ MD Ot L03.116 CELLULITIS OF LEFT LOWER LIMB 06/01/2016 GABRIELA MARTINEZ MD Ot M19.90 UNSPECIFIED OSTEOARTHRITIS, UNSPECIFIED 06/01/2016 GABRIELA MARTINEZ MD Ot M54.9 DORSALGIA, UNSPECIFIED 06/01/2016 GABRIELA MARTINEZ MD Ot Z68.43 BODY MASS INDEX (BMI) 50-59.9 , ADULT 06/01/2016 GABRIELA MARTINEZ MD Ot Z79.01 DETENTION (CURRENT) USE OF ANTICOAGULANT 06/01/2016 GABRIELA MARTINEZ MD Ot Z87.891 PERSONAL HISTORY OF NICOTINE DEPENDENCE 06/01/2016 GABRIELA MARTINEZ MD Ot Z95.818 PRESENCE OF OTHER CARDIAC IMPLANTS AND G 06/02/2016 GABRIELA MARTINEZ MD Ot E11.59 TYPE 2 DIABETES MELLITUS WITH OTH CIRCUL 06/02/2016 GABRIELA MARTINEZ MD Ot E66.01 MORBID (SEVERE) OBESITY DUE TO EXCESS CA 06/02/2016 GABRIELA MARTINEZ MD Ot E78.5 HYPERLIPIDEMIA, UNSPECIFIED 06/02/2016 GABRIELA MARTINEZ MD Ot F79 UNSPECIFIED INTELLECTUAL DISABILITIES 06/02/2016 GABRIELA MARTINEZ MD Ot F89 UNSPECIFIED DISORDER OF PSYCHOLOGICAL DE 06/02/2016 GABRIELA MARTINEZ MD Ot G47.33 OBSTRUCTIVE SLEEP APNEA (ADULT) (PEDIATR 06/02/2016 GABRIELA MARTINEZ MD Ot I10 ESSENTIAL (PRIMARY) HYPERTENSION 06/02/2016 GABRIELA MARTINEZ MD Ot I25.10 ATHSCL HEART DISEASE OF [place] CORONARY 06/02/2016 GABRIELA MARTINEZ MD Ot I48.0 PAROXYSMAL ATRIAL FIBRILLATION 06/02/2016 GABRIELA MARTINEZ MD Ot I65.29 OCCLUSION AND STENOSIS OF UNSPECIFIED CA 06/02/2016 GABRIELA MARTINEZ MD Ot I73.9 PERIPHERAL VASCULAR DISEASE, UNSPECIFIED 06/02/2016 GABRIELA MARTINEZ MD Ot J30.2 OTHER SEASONAL ALLERGIC RHINITIS 06/02/2016 GABRIELA MARTINEZ MD Ot J44.9 CHRONIC OBSTRUCTIVE PULMONARY DISEASE, U 06/02/2016 GABRIELA MARTINEZ MD Ot K21.9 GASTRO-ESOPHAGEAL REFLUX DISEASE WITHOUT 06/02/2016 GABRIELA MARTINEZ MD Ot L03.115 CELLULITIS OF RIGHT LOWER LIMB 06/02/2016 GABRIELA MARTINEZ MD Ot L03.116 CELLULITIS OF LEFT LOWER LIMB 06/02/2016 GABRIELA MARTINEZ MD Ot M19.90 UNSPECIFIED OSTEOARTHRITIS, UNSPECIFIED 06/02/2016 GABRIELA MARTINEZ MD Ot M54.9 DORSALGIA, UNSPECIFIED 06/02/2016 GABRIELA MARTINEZ MD Ot Z68.43 BODY MASS INDEX (BMI) 50-59.9 , ADULT 06/02/2016 GABRIELA MARTINEZ MD Ot Z79.01 DETENTION (CURRENT) USE OF ANTICOAGULANT 06/02/2016 GABRIELA MARTINEZ MD Ot Z87.891 PERSONAL HISTORY OF NICOTINE DEPENDENCE 06/02/2016 GABRIELA MARTINEZ MD Ot Z95.818 PRESENCE OF OTHER CARDIAC IMPLANTS AND G 06/02/2016 GABRIELA MARTINEZ MD Ot E11.59 TYPE 2 DIABETES MELLITUS WITH OTH CIRCUL 06/02/2016 GABRIELA MARTINEZ MD Ot E66.01 MORBID (SEVERE) OBESITY DUE TO EXCESS CA 06/02/2016 GABRIELA MARTINEZ MD Ot E78.5 HYPERLIPIDEMIA, UNSPECIFIED 06/02/2016 GABRIELA MARTINEZ MD Ot F79 UNSPECIFIED INTELLECTUAL DISABILITIES 06/02/2016 GABRIELA MARTINEZ MD Ot F89 UNSPECIFIED DISORDER OF PSYCHOLOGICAL DE 06/02/2016 GABRIELA MARTINEZ MD Ot G47.33 OBSTRUCTIVE SLEEP APNEA (ADULT) (PEDIATR 06/02/2016 GABRIELA MARTINEZ MD Ot I10 ESSENTIAL (PRIMARY) HYPERTENSION 06/02/2016 GABRIELA MARTINEZ MD Ot I25.10 ATHSCL HEART DISEASE OF [place] CORONARY 06/02/2016 GABRIELA MARTINEZ MD Ot I48.0 PAROXYSMAL ATRIAL FIBRILLATION 06/02/2016 GABRIELA MARTINEZ MD Ot I65.29 OCCLUSION AND STENOSIS OF UNSPECIFIED CA 06/02/2016 GABRIELA MARTINEZ MD Ot I73.9 PERIPHERAL VASCULAR DISEASE, UNSPECIFIED 06/02/2016 GABRIELA MARTINEZ MD, Ot J30.2 OTHER SEASONAL ALLERGIC RHINITIS 06/02/2016 GABRIELA MARTINEZ MD Ot J44.9 CHRONIC OBSTRUCTIVE PULMONARY DISEASE, U 06/02/2016 GABRIELA MARTINEZ MD Ot K21.9 GASTRO-ESOPHAGEAL REFLUX DISEASE WITHOUT 06/02/2016 GABRIELA MARTINEZ MD Ot L03.115 CELLULITIS OF RIGHT LOWER LIMB 06/02/2016 GABRIELA MARTINEZ MD Ot L03.116 CELLULITIS OF LEFT LOWER LIMB 06/02/2016 GABRIELA MARTINEZ MD Ot M19.90 UNSPECIFIED OSTEOARTHRITIS, UNSPECIFIED 06/02/2016 GABRIELA MARTINEZ MD Ot M54.9 DORSALGIA, UNSPECIFIED 06/02/2016 GABRIELA MARTINEZ MD Ot Z68.43 BODY MASS INDEX (BMI) 50-59.9 , ADULT 06/02/2016 GABRIELA MARTINEZ MD Ot Z79.01 DETENTION (CURRENT) USE OF ANTICOAGULANT 06/02/2016 GABRIELA MARTINEZ MD Ot Z87.891 PERSONAL HISTORY OF NICOTINE DEPENDENCE 06/02/2016 GABRIELA MARTINEZ MD Ot Z95.818 PRESENCE OF OTHER CARDIAC IMPLANTS AND G 06/03/2016 GABRIELA MARTINEZ MD Ot E11.59 TYPE 2 DIABETES MELLITUS WITH OTH CIRCUL 06/03/2016 GABRIELA MARTINEZ MD Ot E66.01 MORBID (SEVERE) OBESITY DUE TO EXCESS CA 06/03/2016 GABRIELA MARTINEZ MD Ot E78.5 HYPERLIPIDEMIA, UNSPECIFIED 06/03/2016 GABRIELA MARTINEZ MD Ot F79 UNSPECIFIED INTELLECTUAL DISABILITIES 06/03/2016 GABRIELA MARTINEZ MD Ot F89 UNSPECIFIED DISORDER OF PSYCHOLOGICAL DE 06/03/2016 GABRIELA MARTINEZ MD Ot G47.33 OBSTRUCTIVE SLEEP APNEA (ADULT) (PEDIATR 06/03/2016 GABRIELA MARTINEZ MD Ot I10 ESSENTIAL (PRIMARY) HYPERTENSION 06/03/2016 GABRIELA MARTINEZ MD Ot I25.10 ATHSCL HEART DISEASE OF [place] CORONARY 06/03/2016 GABRIELA MARTINEZ MD Ot I48.0 PAROXYSMAL ATRIAL FIBRILLATION 06/03/2016 GABRIELA MARTINEZ MD Ot I65.29 OCCLUSION AND STENOSIS OF UNSPECIFIED CA 06/03/2016 GABRIELA MARTINEZ MD Ot I73.9 PERIPHERAL VASCULAR DISEASE, UNSPECIFIED 06/03/2016 GABRIELA MARTINEZ MD Ot J30.2 OTHER SEASONAL ALLERGIC RHINITIS 06/03/2016 GABRIELA MARTINEZ MD, Ot J44.9 CHRONIC OBSTRUCTIVE PULMONARY DISEASE, U 06/03/2016 GABRIELA MARTINEZ MD Ot K21.9 GASTRO-ESOPHAGEAL REFLUX DISEASE WITHOUT 06/03/2016 GABRIELA MARTINEZ MD Ot L03.115 CELLULITIS OF RIGHT LOWER LIMB 06/03/2016 GABRIELA MARTINEZ MD Ot L03.116 CELLULITIS OF LEFT LOWER LIMB 06/03/2016 GABRIELA MARTINEZ MD Ot M19.90 UNSPECIFIED OSTEOARTHRITIS, UNSPECIFIED 06/03/2016 GABRIELA MARTINEZ MD Ot M54.9 DORSALGIA, UNSPECIFIED 06/03/2016 GABRIELA MARTINEZ MD Ot Z68.43 BODY MASS INDEX (BMI) 50-59.9 , ADULT 06/03/2016 GABRIELA MARTINEZ MD Ot Z79.01 DETENTION (CURRENT) USE OF ANTICOAGULANT 06/03/2016 GABRIELA MARTINEZ MD Ot Z87.891 PERSONAL HISTORY OF NICOTINE DEPENDENCE 06/03/2016 GABRIELA MARTINEZ MD Ot Z95.818 PRESENCE OF OTHER CARDIAC IMPLANTS AND G 06/03/2016 GABRIELA MARTINEZ MD Ot E11.59 TYPE 2 DIABETES MELLITUS WITH OTH CIRCUL 06/03/2016 GABRIELA MARTINEZ MD Ot E66.01 MORBID (SEVERE) OBESITY DUE TO EXCESS CA 06/03/2016 GABRIELA MARTINEZ MD Ot E78.5 HYPERLIPIDEMIA, UNSPECIFIED 06/03/2016 GABRIELA MARTIENZ MD Ot F79 UNSPECIFIED INTELLECTUAL DISABILITIES 06/03/2016 GABRIELA MARTINEZ MD Ot F89 UNSPECIFIED DISORDER OF PSYCHOLOGICAL DE 06/03/2016 GABRIELA MARTINEZ MD Ot G47.33 OBSTRUCTIVE SLEEP APNEA (ADULT) (PEDIATR 06/03/2016 GABRIELA MARTINEZ MD Ot I10 ESSENTIAL (PRIMARY) HYPERTENSION 06/03/2016 GABRIELA MARTINEZ MD Ot I25.10 ATHSCL HEART DISEASE OF [place] CORONARY 06/03/2016 GABRIELA MARTINEZ MD Ot I48.0 PAROXYSMAL ATRIAL FIBRILLATION 06/03/2016 GABRIELA MARTINEZ MD Ot I65.29 OCCLUSION AND STENOSIS OF UNSPECIFIED CA 06/03/2016 GABRIELA MARTINEZ MD Ot I70.0 ATHEROSCLEROSIS OF [place] 06/03/2016 GABRIELA MARTINEZ MD Ot I70.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 06/03/2016 GABRIELA MARTINEZ MD Ot I73.9 PERIPHERAL VASCULAR DISEASE, UNSPECIFIED 06/03/2016 GABRIELA MARTINEZ MD Ot J30.2 OTHER SEASONAL ALLERGIC RHINITIS 06/03/2016 GABRIELA MARTINEZ MD Ot J44.9 CHRONIC OBSTRUCTIVE PULMONARY DISEASE, U 06/03/2016 GABRIELA MARTINEZ MD Ot K21.9 GASTRO-ESOPHAGEAL REFLUX DISEASE WITHOUT 06/03/2016 GABRIELA MARTINEZ MD Ot L03.115 CELLULITIS OF RIGHT LOWER LIMB 06/03/2016 GABRIELA MARTINEZ MD Ot L03.116 CELLULITIS OF LEFT LOWER LIMB 06/03/2016 GABRIELA MARTINEZ MD Ot M19.90 UNSPECIFIED OSTEOARTHRITIS, UNSPECIFIED 06/03/2016 GABRIELA MARTINEZ MD Ot M54.9 DORSALGIA, UNSPECIFIED 06/03/2016 GABRIELA MARTINEZ MD Ot Z68.43 BODY MASS INDEX (BMI) 50-59.9 , ADULT 06/03/2016 GABRIELA MARTINEZ MD Ot Z79.01 DETENTION (CURRENT) USE OF ANTICOAGULANT 06/03/2016 GABRIELA MARTINEZ MD Ot Z79.4 DETENTION (CURRENT) USE OF INSULIN 06/03/2016 GABRIELA MARTINEZ MD Ot Z87.891 PERSONAL HISTORY OF NICOTINE DEPENDENCE 06/03/2016 GABRIELA MARTINEZ MD Ot Z95.818 PRESENCE OF OTHER CARDIAC IMPLANTS AND G 06/06/2016 Ot 401.9 HYPERTENSION NOS 06/06/2016 Ot 427.0 [place] ATRIAL TACHYCARDIA 06/06/2016 Ot 427.31 ATRIAL FIBRILLATION 06/06/2016 Ot 786.50 CHEST PAIN NOS 06/06/2016 Ot V64.3 NO PROC FOR REASONS NEC 06/06/2016 Ot 272.4 HYPERLIPIDEMIA NEC/NOS 06/06/2016 Ot 401.9 HYPERTENSION NOS 06/06/2016 Ot 272.4 HYPERLIPIDEMIA NEC/NOS 06/06/2016 Ot 414.00 CORON ATHEROSCLER NOS TYPE VESSEL, NATIV 06/06/2016 KAYLAH DEL TORO Ot 272.4 HYPERLIPIDEMIA NEC/NOS 06/06/2016 KAYLAH DEL TORO Ot 401.9 HYPERTENSION NOS 06/06/2016 KAYLAH DEL TORO Ot 414.00 CORON ATHEROSCLER NOS TYPE VESSEL, NATIV 06/06/2016 KAYLAH DEL TORO Ot 427.0 [place] ATRIAL TACHYCARDIA 06/06/2016 KAYLAH DEL TORO Ot 780.2 SYNCOPE AND COLLAPSE 06/06/2016 GABRIELA MARTINEZ MD Ot 414.01 CORONARY ATHEROSCLEROSIS OF [place] CORON 06/06/2016 GABRIELA MARTINEZ MD Ot 427.0 [place] ATRIAL TACHYCARDIA 06/06/2016 GABRIELA MARTINEZ MD Ot 780.2 SYNCOPE AND COLLAPSE 06/06/2016 GABRIELA MARTINEZ MD Ot 785.1 PALPITATIONS 06/06/2016 GABRIELA MARTINEZ MD Ot 272.4 HYPERLIPIDEMIA NEC/NOS 06/06/2016 GABRIELA MARTINEZ MD Ot 401.9 HYPERTENSION NOS 06/06/2016 GABRIELA MARTINEZ MD Ot 414.00 CORON ATHEROSCLER NOS TYPE VESSEL, NATIV 06/06/2016 GABRIELA MARTINEZ MD Ot 786.50 CHEST PAIN NOS 06/06/2016 WESLEY MULLER, EDEN Alcantara Ot 486 PNEUMONIA, ORGANISM NOS 06/06/2016 GABRIELA MARTINEZ MD Ot E78.2 MIXED HYPERLIPIDEMIA 06/06/2016 GABRIELA MARTINEZ MD Ot I10 ESSENTIAL (PRIMARY) HYPERTENSION 06/06/2016 GABRIELA MARTINEZ MD Ot I25.10 ATHSCL HEART DISEASE OF [place] CORONARY 06/06/2016 GABRIELA MARTINEZ MD Ot I47.1 SUPRAVENTRICULAR TACHYCARDIA 06/06/2016 GABRIELA MARTINEZ MD Ot E78.2 MIXED HYPERLIPIDEMIA 06/06/2016 GABRILEA MARTINEZ MD Ot I10 ESSENTIAL (PRIMARY) HYPERTENSION 06/06/2016 GABRIELA MARTINEZ MD Ot I25.10 ATHSCL HEART DISEASE OF [place] CORONARY 06/06/2016 GABRIELA MARTINEZ MD Ot I47.1 SUPRAVENTRICULAR TACHYCARDIA 06/06/2016 GABRIELA MARTINEZ MD Ot E78.5 HYPERLIPIDEMIA, UNSPECIFIED 06/06/2016 GABRIELA MARTINEZ MD Ot I10 ESSENTIAL (PRIMARY) HYPERTENSION 06/06/2016 GABRIELA MARTINEZ MD Ot I25.10 ATHSCL HEART DISEASE OF [place] CORONARY 06/06/2016 GABRIELA MARTINEZ MD Ot I47.1 SUPRAVENTRICULAR TACHYCARDIA 06/06/2016 ESTRELLA DUBON TEMPLATE FITTER Ot I70.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 06/06/2016 ESTRELLA DUBON TEMPLATE FITTER Ot I87.323 CHRONIC VENOUS HTN W INFLAMMATION OF [place] 06/06/2016 ESTRELLA DUBON TEMPLATE FITTER Ot L22 DIAPER DERMATITIS 06/08/2016 Ot 401.9 HYPERTENSION NOS 06/08/2016 Ot 427.0 [place] ATRIAL TACHYCARDIA 06/08/2016 Ot 427.31 ATRIAL FIBRILLATION 06/08/2016 Ot 786.50 CHEST PAIN NOS 06/08/2016 Ot V64.3 NO PROC FOR REASONS NEC 06/08/2016 Ot 272.4 HYPERLIPIDEMIA NEC/NOS 06/08/2016 Ot 401.9 HYPERTENSION NOS 06/08/2016 Ot 272.4 HYPERLIPIDEMIA NEC/NOS 06/08/2016 Ot 414.00 CORON ATHEROSCLER NOS TYPE VESSEL, NATIV 06/08/2016 KAYLAH DEL TORO Ot 272.4 HYPERLIPIDEMIA NEC/NOS 06/08/2016 KAYLAH DEL TORO Ot 401.9 HYPERTENSION NOS 06/08/2016 KAYLAH DEL TORO Ot 414.00 CORON ATHEROSCLER NOS TYPE VESSEL, NATIV 06/08/2016 KAYLAH DEL TORO Ot 427.0 [place] ATRIAL TACHYCARDIA 06/08/2016 KAYLAH DEL TORO Ot 780.2 SYNCOPE AND COLLAPSE 06/08/2016 GABRIELA MARTINEZ MD Ot 414.01 CORONARY ATHEROSCLEROSIS OF [place] CORON 06/08/2016 GABRIELA MARTINEZ MD Ot 427.0 [place] ATRIAL TACHYCARDIA 06/08/2016 GABRIELA MARTINEZ MD Ot 780.2 SYNCOPE AND COLLAPSE 06/08/2016 GABRIELA MARTINEZ MD Ot 785.1 PALPITATIONS 06/08/2016 GABRIELA MARTINEZ MD Ot 272.4 HYPERLIPIDEMIA NEC/NOS 06/08/2016 GABRIELA MARTINEZ MD Ot 401.9 HYPERTENSION NOS 06/08/2016 GABRIELA MARTINEZ MD Ot 414.00 CORON ATHEROSCLER NOS TYPE VESSEL, NATIV 06/08/2016 GABRIELA MARTINEZ MD Ot 786.50 CHEST PAIN NOS 06/08/2016 WESLEY MULLER, EDEN Alcantara Ot 486 PNEUMONIA, ORGANISM NOS 06/08/2016 GABRIELA MARTINEZ MD Ot E78.2 MIXED HYPERLIPIDEMIA 06/08/2016 GABRIELA MARTINEZ MD Ot I10 ESSENTIAL (PRIMARY) HYPERTENSION 06/08/2016 GABRIELA MARTINEZ MD Ot I25.10 ATHSCL HEART DISEASE OF [place] CORONARY 06/08/2016 GABRIELA MARTINEZ MD Ot I47.1 SUPRAVENTRICULAR TACHYCARDIA 06/08/2016 GABRIELA MARTINEZ MD Ot E78.2 MIXED HYPERLIPIDEMIA 06/08/2016 GABRIELA MARTINEZ MD Ot I10 ESSENTIAL (PRIMARY) HYPERTENSION 06/08/2016 GABRIELA MARTINEZ MD Ot I25.10 ATHSCL HEART DISEASE OF [place] CORONARY 06/08/2016 GABRIELA MARTINEZ MD Ot I47.1 SUPRAVENTRICULAR TACHYCARDIA 06/08/2016 GABRIELA MARTINEZ MD Ot E78.5 HYPERLIPIDEMIA, UNSPECIFIED 06/08/2016 GABRIELA MARTINEZ MD Ot I10 ESSENTIAL (PRIMARY) HYPERTENSION 06/08/2016 GABRIELA MARTINEZ MD Ot I25.10 ATHSCL HEART DISEASE OF [place] CORONARY 06/08/2016 GABRIELA MARTINEZ MD Ot I47.1 SUPRAVENTRICULAR TACHYCARDIA 06/08/2016 ESTRELLA DUBON TEMPLATE FITTER Ot I70.203 [facility] [place] [facility] 06/08/2016 ESTRELLA DUBON TEMPLATE FITTER Ot I87.323 CHRONIC VENOUS HTN W INFLAMMATION OF [place] 06/08/2016 ESTRELLA DUBON TEMPLATE FITTER Ot L22 DIAPER DERMATITIS 06/21/2016 ESTRELLA DUBON APRN Ot B35.4 TINEA CORPORIS 06/21/2016 ESTRELLA DUBON TEMPLATE FITTER Ot I70.203 [facility] ATHSCL [place] ARTERIES OF [facility] 06/21/2016 ESTRELLA DUBON TEMPLATE FITTER Ot I87.323 CHRONIC VENOUS HTN W INFLAMMATION OF [place] 06/21/2016 ESTRELLA DUBON TEMPLATE FITTER Ot L02.32 FURUNCLE OF [place] 06/21/2016 ESTRELLA DUBON TEMPLATE FITTER Ot L22 DIAPER DERMATITIS 08/07/2016 Ot 250.00 08/07/2016 Ot 272.4 08/07/2016 Ot 401.9 08/07/2016 Ot 414.00 08/07/2016 Ot 427.0 08/07/2016 Ot 785.1 08/07/2016 Ot V58.66 08/07/2016 Ot V58.69 08/31/2016 Ot 401.9 HYPERTENSION NOS 08/31/2016 Ot 427.0 [place]OX ATRIAL TACHYCARDIA 08/31/2016 Ot 427.31 ATRIAL FIBRILLATION 08/31/2016 Ot 786.50 CHEST PAIN NOS 08/31/2016 Ot V64.3 NO PROC FOR REASONS NEC 08/31/2016 Ot 272.4 HYPERLIPIDEMIA NEC/NOS 08/31/2016 Ot 401.9 HYPERTENSION NOS 08/31/2016 Ot 272.4 HYPERLIPIDEMIA NEC/NOS 08/31/2016 Ot 414.00 CORON ATHEROSCLER NOS TYPE VESSEL, NATIV 08/31/2016 KAYLAH DEL TORO Ot 272.4 HYPERLIPIDEMIA NEC/NOS 08/31/2016 KAYLAH DEL TORO Ot 401.9 HYPERTENSION NOS 08/31/2016 KAYLAH DEL TORO Ot 414.00 CORON ATHEROSCLER NOS TYPE VESSEL, NATIV 08/31/2016 KAYLAH DEL TORO Ot 427.0 PAROX ATRIAL TACHYCARDIA 08/31/2016 KAYLAH DEL TORO Ot 780.2 SYNCOPE AND COLLAPSE 08/31/2016 GABRIELA MARTINEZ MD Ot 414.01 CORONARY ATHEROSCLEROSIS OF [place] CORON 08/31/2016 GABRIELA MARTINEZ MD Ot 427.0 PAROX ATRIAL TACHYCARDIA 08/31/2016 GABRIELA MARTINEZ MD Ot 780.2 SYNCOPE AND COLLAPSE 08/31/2016 GABRIELA MARTINEZ MD Ot 785.1 PALPITATIONS 08/31/2016 GABRIELA MARTINEZ MD Ot 272.4 HYPERLIPIDEMIA NEC/NOS 08/31/2016 GABRIELA MARTINEZ MD Ot 401.9 HYPERTENSION NOS 08/31/2016 GABRIELA MARTINEZ MD Ot 414.00 CORON ATHEROSCLER NOS TYPE VESSEL, NATIV 08/31/2016 GABRIELA MARTINEZ MD Ot 786.50 CHEST PAIN NOS 08/31/2016 WESLEY MULLER, EDEN Alcantara Ot 486 PNEUMONIA, ORGANISM NOS 08/31/2016 GABRIELA MARTINEZ MD Ot E78.2 MIXED HYPERLIPIDEMIA 08/31/2016 GABRIELA MARTINEZ MD Ot I10 ESSENTIAL (PRIMARY) HYPERTENSION 08/31/2016 GABRIELA MARTINEZ MD Ot I25.10 ATHSCL HEART DISEASE OF [place] CORONARY 08/31/2016 GABRIELA MARTINEZ MD Ot I47.1 SUPRAVENTRICULAR TACHYCARDIA 08/31/2016 GABRIELA MARTINEZ MD Ot E78.2 MIXED HYPERLIPIDEMIA 08/31/2016 GABRIELA MARTINEZ MD Ot I10 ESSENTIAL (PRIMARY) HYPERTENSION 08/31/2016 GABRIELA MARTINEZ MD Ot I25.10 ATHSCL HEART DISEASE OF [place] CORONARY 08/31/2016 GABRIELA MARTINEZ MD Ot I47.1 SUPRAVENTRICULAR TACHYCARDIA 08/31/2016 GABRIELA MARTINEZ MD Ot E78.5 HYPERLIPIDEMIA, UNSPECIFIED 08/31/2016 GABRIELA MARTINEZ MD Ot I10 ESSENTIAL (PRIMARY) HYPERTENSION 08/31/2016 GABRIELA MARTINEZ MD Ot I25.10 ATHSCL HEART DISEASE OF [place] CORONARY 08/31/2016 GABRIELA MARTINEZ MD Ot I47.1 SUPRAVENTRICULAR TACHYCARDIA 09/01/2016 MANDI COSBY DO Ot R07.9 CHEST PAIN, UNSPECIFIED 09/02/2016 MANDI COSBY DO Ot E11.9 TYPE 2 DIABETES MELLITUS WITHOUT COMPLIC 09/02/2016 MANDI COSBY DO Ot E66.2 MORBID (SEVERE) OBESITY WITH ALVEOLAR HY 09/02/2016 KENDRICK COSBY DOI Ot E78.5 HYPERLIPIDEMIA, UNSPECIFIED 09/02/2016 KENDRICK COSBY DOI Ot F79 UNSPECIFIED INTELLECTUAL DISABILITIES 09/02/2016 KENDRICK COSBY DOI Ot I10 ESSENTIAL (PRIMARY) HYPERTENSION 09/02/2016 KENDRICK COSBY DOI Ot I25.10 ATHSCL HEART DISEASE OF [place] CORONARY 09/02/2016 KENDRICK COSBY DOI Ot I48.0 PAROXYSMAL ATRIAL FIBRILLATION 09/02/2016 KENDRICK COSBY DOI Ot I48.92 UNSPECIFIED ATRIAL FLUTTER 09/02/2016 KENDRICK COSBY DOI Ot I65.29 OCCLUSION AND STENOSIS OF UNSPECIFIED CA 09/02/2016 MANDI COSBY DO Ot I87.8 OTHER SPECIFIED DISORDERS OF VEINS 09/02/2016 MANDI COSBY DO Ot J44.9 CHRONIC OBSTRUCTIVE PULMONARY DISEASE, U 09/02/2016 MANDI COSBY DO Ot J45.909 UNSPECIFIED ASTHMA, UNCOMPLICATED 09/02/2016 KENDRICK COSBY DOI Ot K21.9 GASTRO-ESOPHAGEAL REFLUX DISEASE WITHOUT 09/02/2016 KENDRICK COSBY DOI Ot L03.115 CELLULITIS OF RIGHT LOWER LIMB 09/02/2016 MANDI COSBY DO Ot L03.116 CELLULITIS OF LEFT LOWER LIMB 09/02/2016 MANDI COSBY DO Ot M17.0 BILATERAL PRIMARY OSTEOARTHRITIS OF [place] 09/02/2016 MANDI COSBY DO Ot M54.9 DORSALGIA, UNSPECIFIED 09/02/2016 MANDI COSBY DO Ot R07.9 CHEST PAIN, UNSPECIFIED 09/02/2016 MANDI COSBY DO Ot Z68.43 BODY MASS INDEX (BMI) 50-59.9 , ADULT 09/02/2016 MANDI COSBY DO Ot Z79.01 DETENTION (CURRENT) USE OF ANTICOAGULANT 09/02/2016 MANDI COSBY DO Ot Z79.84 CASE THERAPIST (CURRENT) USE OF ORAL HYPOGLYC 09/02/2016 MANDI COSBY DO Ot Z87.891 PERSONAL HISTORY OF NICOTINE DEPENDENCE 09/02/2016 MANDI COSBY DO Ot E11.9 TYPE 2 DIABETES MELLITUS WITHOUT COMPLIC 09/02/2016 MANDI COSBY DO Ot E66.2 MORBID (SEVERE) OBESITY WITH ALVEOLAR HY 09/02/2016 MANDI COSBY DO Ot E78.5 HYPERLIPIDEMIA, UNSPECIFIED 09/02/2016 MANDI COSBY DO Ot F79 UNSPECIFIED INTELLECTUAL DISABILITIES 09/02/2016 MANDI COSBY DO Ot I10 ESSENTIAL (PRIMARY) HYPERTENSION 09/02/2016 MANDI COSBY DO Ot I25.10 ATHSCL HEART DISEASE OF [place] CORONARY 09/02/2016 MANDI COSBY DO Ot I48.0 PAROXYSMAL ATRIAL FIBRILLATION 09/02/2016 MANDI COSBY DO Ot I48.92 UNSPECIFIED ATRIAL FLUTTER 09/02/2016 MANDI COSBY DO Ot I50.9 HEART FAILURE, UNSPECIFIED 09/02/2016 MANDI COSBY DO Ot I65.29 OCCLUSION AND STENOSIS OF UNSPECIFIED CA 09/02/2016 MANDI COSBY DO Ot I87.8 OTHER SPECIFIED DISORDERS OF VEINS 09/02/2016 MANDI COSBY DO Ot J44.9 CHRONIC OBSTRUCTIVE PULMONARY DISEASE, U 09/02/2016 MANDI COSBY DO Ot J45.909 UNSPECIFIED ASTHMA, UNCOMPLICATED 09/02/2016 MANDI COSBY DO Ot K21.9 GASTRO-ESOPHAGEAL REFLUX DISEASE WITHOUT 09/02/2016 MANDI COSBY DO Ot L03.115 CELLULITIS OF RIGHT LOWER LIMB 09/02/2016 MANDI COSBY DO Ot L03.116 CELLULITIS OF LEFT LOWER LIMB 09/02/2016 MANDI COSBY DO Ot M17.0 BILATERAL PRIMARY OSTEOARTHRITIS OF KNEE 09/02/2016 MANDI COSBY DO Ot M54.9 DORSALGIA, UNSPECIFIED 09/02/2016 MANDI COSBY DO Ot R06.82 TACHYPNEA, NOT ELSEWHERE CLASSIFIED 09/02/2016 MANDI COSBY DO Ot R07.9 CHEST PAIN, UNSPECIFIED 09/02/2016 MANDI COSBY DO Ot R09.02 HYPOXEMIA 09/02/2016 MANDI COSBY DO Ot R55 SYNCOPE AND COLLAPSE 09/02/2016 MANDI COSBY DO Ot Z68.43 BODY MASS INDEX (BMI) 50-59.9 , ADULT 09/02/2016 MANDI COSBY DO Ot Z79.01 DETENTION (CURRENT) USE OF ANTICOAGULANT 09/02/2016 MANDI COSBY DO Ot Z79.84 CASE THERAPIST (CURRENT) USE OF ORAL HYPOGLYC 09/02/2016 MANDI COSBY DO Ot Z87.891 PERSONAL HISTORY OF NICOTINE DEPENDENCE 09/26/2016 MANDI COSBY DO Ot A41.9 SEPSIS, UNSPECIFIED ORGANISM 09/26/2016 MANDI COSBY DO Ot B37.2 CANDIDIASIS OF SKIN AND NAIL 09/26/2016 MANDI COSBY DO Ot E11.65 TYPE 2 DIABETES MELLITUS WITH HYPERGLYCE 09/26/2016 MANDI COSBY DO Ot E66.01 MORBID (SEVERE) OBESITY DUE TO EXCESS CA 09/26/2016 MANDI COSBY DO Ot F72 SEVERE INTELLECTUAL DISABILITIES 09/26/2016 MANDI COSBY DO Ot G47.33 OBSTRUCTIVE SLEEP APNEA (ADULT) (PEDIATR 09/26/2016 MANDI COSBY DO Ot I11.0 HYPERTENSIVE HEART DISEASE WITH HEART FA 09/26/2016 MANDI COSBY DO Ot I25.10 ATHSCL HEART DISEASE OF [place] CORONARY 09/26/2016 MANDI COSBY DO Ot I25.2 OLD MYOCARDIAL INFARCTION 09/26/2016 MANDI COSBY DO Ot I48.0 PAROXYSMAL ATRIAL FIBRILLATION 09/26/2016 MANDI COSBY DO Ot I50.9 HEART FAILURE, UNSPECIFIED 09/26/2016 MANDI COSBY DO Ot J18.9 PNEUMONIA, UNSPECIFIED ORGANISM 09/26/2016 MANDI COSBY DO Ot J20.9 ACUTE BRONCHITIS, UNSPECIFIED 09/26/2016 MANDI COSBY DO Ot J44.0 CHRONIC OBSTRUCTIVE PULMON DISEASE W ACU 09/26/2016 MANDI COSBY DO Ot J44.1 CHRONIC OBSTRUCTIVE PULMONARY DISEASE W 09/26/2016 MANDI COSBY DO Ot J45.909 UNSPECIFIED ASTHMA, UNCOMPLICATED 09/26/2016 MANDI COSBY DO Ot J96.90 RESPIRATORY FAILURE, UNSP, UNSP W HYPOXI 09/26/2016 MANDI COSBY DO Ot L03.115 CELLULITIS OF RIGHT LOWER LIMB 09/26/2016 MANDI COSBY DO Ot L03.116 CELLULITIS OF LEFT LOWER LIMB 09/26/2016 MANDI COSBY DO Ot T38.0X5A ADVERSE EFFECT OF GLUCOCORT/SYNTH ANALOG 09/26/2016 MANDI COSBY DO Ot Z68.43 BODY MASS INDEX (BMI) 50-59.9 , ADULT 09/26/2016 MANID COSBY DO Ot Z79.01 DETENTION (CURRENT) USE OF ANTICOAGULANT 09/26/2016 MANDI COSBY DO Ot Z87.891 PERSONAL HISTORY OF NICOTINE DEPENDENCE 11/01/2016 GABRIELA MARTINEZ MD Ot E11.621 TYPE 2 DIABETES MELLITUS WITH FOOT ULCER 11/01/2016 GABRIELA MARTINEZ MD Ot E66.01 MORBID (SEVERE) OBESITY DUE TO EXCESS CA 11/01/2016 GABRIELA MARTINEZ MD Ot E78.5 HYPERLIPIDEMIA, UNSPECIFIED 11/01/2016 GABRIELA MARTINEZ MD Ot G47.33 OBSTRUCTIVE SLEEP APNEA (ADULT) (PEDIATR 11/01/2016 GABRIELA MARTINEZ MD Ot I10 ESSENTIAL (PRIMARY) HYPERTENSION 11/01/2016 GABRIELA MARTINEZ MD Ot I34.0 NONRHEUMATIC MITRAL (VALVE) INSUFFICIENC 11/01/2016 GABRIELA MARTINEZ MD Ot I48.0 PAROXYSMAL ATRIAL FIBRILLATION 11/01/2016 GABRIELA MARTINEZ MD Ot I73.9 PERIPHERAL VASCULAR DISEASE, UNSPECIFIED 11/01/2016 GABRIELA MARTINEZ MD Ot J44.9 CHRONIC OBSTRUCTIVE PULMONARY DISEASE, U 11/01/2016 GABRIELA MARTINEZ MD Ot L97.509 NON-PRESSURE CHRONIC ULCER OTH PRT UNSP 11/01/2016 GABRIELA MARTINEZ MD Ot Q21.1 ATRIAL SEPTAL DEFECT 11/01/2016 GABRIELA MARTINEZ MD, Ot R06.02 SHORTNESS OF BREATH 11/01/2016 GABRIELA MARTINEZ MD, Ot Z68.43 BODY MASS INDEX (BMI) 50-59.9 , ADULT 11/01/2016 GABRIELA MARTINEZ MD Ot Z79.4 CASE THERAPIST (CURRENT) USE OF INSULIN 11/01/2016 GABRIELA MARTINEZ MD, Ot Z79.899 OTHER DETENTION (CURRENT) DRUG THERAPY 11/04/2016 GABRIELA MARTINEZ MD Ot E11.621 TYPE 2 DIABETES MELLITUS WITH FOOT ULCER 11/04/2016 GABRIELA MARTINEZ MD, Ot E66.01 MORBID (SEVERE) OBESITY DUE TO EXCESS CA 11/04/2016 GABRIELA MARTINEZ MD, Ot E78.5 HYPERLIPIDEMIA, UNSPECIFIED 11/04/2016 GABRIELA MARTINEZ MD Ot G47.33 OBSTRUCTIVE SLEEP APNEA (ADULT) (PEDIATR 11/04/2016 GABRIELA MARTINEZ MD Ot I10 ESSENTIAL (PRIMARY) HYPERTENSION 11/04/2016 GABRIELA MARTINEZ MD Ot I34.0 NONRHEUMATIC MITRAL (VALVE) INSUFFICIENC 11/04/2016 GABRIELA MARTINEZ MD, Ot I48.0 PAROXYSMAL ATRIAL FIBRILLATION 11/04/2016 GABRIELA MARTINEZ MD Ot I73.9 PERIPHERAL VASCULAR DISEASE, UNSPECIFIED 11/04/2016 GABRIELA MARTINEZ MD, Ot J44.9 CHRONIC OBSTRUCTIVE PULMONARY DISEASE, U 11/04/2016 GABRIELA MARTINEZ MD, Ot L97.509 NON-PRESSURE CHRONIC ULCER OTH PRT UNSP 11/04/2016 GABRIELA MARTINEZ MD, Ot Q21.1 ATRIAL SEPTAL DEFECT 11/04/2016 GABRIELA MARTINEZ MD Ot R06.02 SHORTNESS OF BREATH 11/04/2016 GABRIELA MARTINEZ MD, Ot Z68.43 BODY MASS INDEX (BMI) 50-59.9 , ADULT 11/04/2016 GABRIELA MARTINEZ MD Ot Z79.4 DETENTION (CURRENT) USE OF INSULIN 11/04/2016 GABRIELA MARTINEZ MD Ot Z79.899 OTHER DETENTION (CURRENT) DRUG THERAPY 11/10/2016 WESLEY MULELR, EDEN Alcantara Ot R19.7 DIARRHEA, UNSPECIFIED Procedures Code Description Performed By Performed On [id number] INSERTION OF INFUSION DEV INTO SUP VENA 02/06/2016 [id number] 05/31/2016 R83H1RD FLUOROSCOPY OF AORTA, BI LE ART USING L 05/31/2016 [id number] 05/31/2016 M65H3CS 05/31/201608OO67J INSERTION OF INFUSION DEV INTO SUP VENA 09/22/2016 Encounters ACCT No. Visit Date/Time Discharge Status Pt. Type Provider Facility Loc./Unit Complaint [id number] 03/14/2012 16:07:00 03/14/2012 23: 59:59 CLS Outpatient THOMAS RODRIGUEZ APRN S
== END 2016-11-01 15:40 | disposition home or self-care (01) ==
LOC: DELPENDDIS → CATH 07:01 → ICU 09:40 → CATH 11-01 15:40
PROVIDERS: ATTEND Internal Medicine Cardiovascular Disease
DX: I48.0 Paroxysmal atrial fibrillation (principal); I10 Essential (primary) hypertension; R06.02 Shortness of breath; E66.01 Morbid (severe) obesity due to excess calories; Z68.43 Body mass index [BMI] 50.0-59.9, adult; G47.33 Obstructive sleep apnea (adult) (pediatric); J44.9 Chronic obstructive pulmonary disease, unspecified; E78.5 Hyperlipidemia, unspecified; L97.509 Non-pressure chronic ulcer of other part of unspecified foot with unspecified severity; E11.621 Type 2 diabetes mellitus with foot ulcer; I73.9 Peripheral vascular disease, unspecified; Q21.1 Atrial septal defect; I34.0 Nonrheumatic mitral (valve) insufficiency; Z79.899 Other long term (current) drug therapy; Z79.4 Long term (current) use of insulin
CPT/HCPCS: 36415; 71010; 80053; 80061; 82962; 85027; 85610; 85730; 87081; 92960; 93005; 93312; 94640; 94660; 94760

== ENCOUNTER → 2016-11-04 | Outpatient (CLI) | payer MEDICARE, MEDICAID ==
[~2016-11-04] MED LIST changes: +ACLI400A2 IH; +ATOR10TA PO; +BALS60OI TP; +BUDE10.2 IH; +DILT360T2 PO; +FURO80TA3 PO; +GUAI5SYR PO; +GUAI600T59 PO; +LEVA1.2527 NEB; +METO2.5T PO; +NITR0.4T SL; +ONDN4T PO; +POTA20TA8 PO; +TAMS0.4C98 PO; +TR1C15 TP
== END ==
PROVIDERS: ATTEND Family Medicine
DX: R19.7 Diarrhea, unspecified (principal)
CPT/HCPCS: 87324; 87449

== ENCOUNTER 2016-12-30 09:19 | Emergency (ER) | payer MEDICARE, MEDICAID ==
[~2016-12-30] VITALS: Ht 167.6 cm; Wt 163.4 kg
[2016-12-30] MEDS ORDERED: GLIM4TAB56 PO (09:55)
[2016-12-30] MEDS ORDERED: RANI150T11 PO (09:55)
[2016-12-30] MEDS ORDERED: LACT1CAP62 PO (09:55)
--- NOTE | 2016-12-30 10:17 | ED Cardiac General ---
History of Present Illness General Chief Complaint: Cardiac/General Problems Stated Complaint: IRR HEART RATE RAPID PULSE Nursing Triage Note: to ER with complaints of possible tachycardia. Patient has been asymptomatic. shelter staff report that patient had heart rate of 160-200. No pulse was checked by palpation or auscultation. Denies chest pain, shortness of breath, swelling or any other concerns. Patient not tachycardic upon arrival. History of Afib/A flutter with RVR. 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er.24h, 360 MG PO DAILY, (Reported) Fluticasone Propionate 16 Gm [place].susp, 2 SPRAYS NA DAILY PRN for CONGESTION, ( Reported) Furosemide 80 Mg Tablet, 80 MG PO DAILY, (Reported) Glimepiride 4 Mg Tablet, 4 MG PO BID, (Reported) Guaifenesin 600 Mg Tab.er.12h, 600 MG PO Q8H PRN for CONGESTION/COUGH, (Reported ) Guaifenesin/Dextromethorphan 5 Ml Syrup, 5 ML PO Q6H PRN for COUGH, (Reported) Insulin Aspart 300 Units/3 Ml Solution, SQ ACHS, (Reported) 70-140 = 0 UNITS 141-180 = 4 UNITS 181-220 = 6 UNITS 221-260 = 8 UNITS 261- 300 = 10 UNITS 301-340 = 12 UNITS 341-380 = 14 UNITS 381-400 = 16 UNITS IF GREATER THAN [address] Insulin Detemir 100 Unit/1 Ml Insuln.pen, 10 UNITS SQ HS, (Reported) Insulin Detemir 100 Unit/1 Ml Insuln.pen, 20 UNIT SQ DAILY, (Reported) Lactobacillus Acidophilus 1 Each Capsule, 4 EACH PO TID, (Reported) Levalbuterol HCl 1.25 Mg/3 Ml Vial.neb, 3 ML NEB TID, (Reported) Nitroglycerin 0.4 Mg Tab.subl, 0.4 MG SL UD PRN for CHEST PAIN, (Reported) Nystatin 60 Gm Powder, TP BID, (Reported) APPLY TO ABDOMINAL FOLD AND GROIN Ondansetron HCl 4 Mg Tab, 4 MG PO Q6H PRN for NAUSEA/VOMITING, (Reported) Potassium Chloride 20 Meq Tab.er.prt, 40 MEQ PO BID, (Reported) TAKES 2 (20MEQ) TABLETS Ranitidine HCl 150 Mg Tablet, 150 MG PO BID, (Reported) Rivaroxaban 20 Mg Tablet, 20 MG PO 1700, (Reported) Sennosides 8.6 Mg Tablet, 8.6 MG PO Q12H PRN for CONSTIPATION, (Reported) Tamsulosin HCl 0.4 Mg Cap, 0.4 MG PO DAILY, (Reported) Topiramate 50 Mg Tablet, 50 MG PO HS, (Reported) Triamcinolone Acet 15 Gm Cr, TP BID, (Reported) APPLY TO DERMATITIS ON LEGS Vitamin A & D 60 Gm Oint, TP BID, (Reported) APPLY TO BILATERAL LOWER LEGS Review of Systems Constitutional: see HPI EENTM: No Symptoms Reported Respiratory: No Symptoms Reported Cardiovascular: No Symptoms Reported Gastrointestinal: No Symptoms Reported Genitourinary: No Symptoms Reported Musculoskeletal: no symptoms reported Skin: no symptoms reported Psychiatric/Neurological: No Symptoms Reported Endocrine: No Symptoms Reported Past Snbihsr-Zeqdoy-Glxtxv Hx Patient Social History Alcohol Use: Denies Use Recreational Drug Use: No Smoking Status: Former Smoker Type Used: Cigarettes Former Smoker/When Quit: Jan 05, 1985 Recent Foreign Travel: No Contact w/Someone Who Travel: No Recent Infectious Disease Expo: No Recent Hopitalizations: No Immunizations Up To Date Tetanus Booster (TDap): Less than 5yrs PED Vaccines UTD: Yes Date of Pneumonia Vaccine: May 06, 2013 Date of Influenza Vaccine: Apr 25, 2016 Seasonal Allergies Seasonal Allergies: Yes Surgeries HX Surgeries: Yes (patient unable to recall) Surgeries: Abdominal, Cardiac Respiratory Hx Respiratory Disorders: Yes Respiratory Disorders: Asthma, Sleep Apnea, COPD Cardiovascular Hx Cardiac Disorders: Yes (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) Cardiac Disorders: Atrial Fibrillation, Chronic Edema/Swelling, Coronary Artery Disease, Heart Attack, High Cholesterol, Hypertension, Palpitations Neurological Hx Neurological Disorders: Yes (MENTAL RETARDATION) Neurological Disorders: Developmental Disorder Reproductive System Hx Reproductive Disorders: No Genitourinary Hx Genitourinary Disorders: No Genitourinary Disorders: Prostate Problems Gastrointestinal Hx Gastrointestinal Disorders: Yes Gastrointestinal Disorders: Gastroesophageal Reflux Musculoskeletal Hx Musculoskeletal Disorders: Yes (chronic bilateral knee pain) Musculoskeletal Disorders: Arthritis, Chronic Back Pain Endocrine Hx Endocrine Disorders: Yes (MORBID OBESITY) Endocrine Disorders: Diabetes, Non-Insulin dep HEENT HX ENT Disorders: No Loss of Vision: Denies Hearing Impairment: Hard of Hearing Cancer Hx Cancer: No Psychosocial Hx Psychiatric Problems: No Integumentary HX Skin/Integumentary Disorder: Yes (CELLULITIS) Blood Transfusions Hx Blood Disorders: No Family Medical History Significant Family History: Diabetes Family Medial History: Unknown family medical history Physical Exam Vital Signs Vital Sign - Last 12Hours 12/30/16 09:39 Temp 98.2 Pulse 92 Resp 16 B/P (MAP) 141/86 Pulse Ox 95 O2 Delivery Room Air Capillary Refill : Less Than 3 Seconds General Appearance: No Apparent Distress, Other (obese) HEENT: Normal ENT Inspection Neck: Normal Inspection Respiratory: Chest Non Tender, Lungs Clear, Normal Breath Sounds, No Accessory Muscle Use, No Respiratory Distress Cardiovascular: Irregularly Irregular Gastrointestinal: Normal Bowel Sounds, No Organomegaly, No Pulsatile Mass, Non Tender Neurologic/Psychiatric: Alert, Oriented x3, No Motor/Sensory Deficits, Normal Mood/Affect Progress/Results/Core Measures Results/Orders Vital Signs/I&O Vital Sign - Last 12Hours 12/30/16 09:39 Temp 98.2 Pulse 92 Resp 16 B/P (MAP) 141/86 Pulse Ox 95 O2 Delivery Room Air Blood Pressure Mean: 104 Departure Communication Progress Notes Examination of the recorder print out shows atrial fibrillation with a rate in the 150 range. On his arrival here his heart rate was controlled at less than 100 bpm he is maximized on his present medications Impression Impression: Primary Impression: atrial fibrillation with rapid ventricular response resolved Disposition: 01 HOME, SELF-CARE Condition: Improved Departure-Patient Inst. Decision time for Depature: 10:16 Referrals: EDEN OLSON MD (PCP/Family) Primary Care Physician Add. Discharge Instructions: All discharge instructions reviewed with patient and/or family. Voiced understanding. Continue present activities and medications. Follow-up with cardiology as scheduled JUAN SALMON MD December 30, 2016 10:17
[2016-12-30 10:28] VITALS: BP 141/86
== END 2016-12-30 10:22 | disposition home or self-care (01) ==
LOC: EDUNIT# 09:19 → ER 09:21
DX: I48.2 Chronic atrial fibrillation (principal); I25.10 Atherosclerotic heart disease of native coronary artery without angina pectoris; I10 Essential (primary) hypertension; E11.9 Type 2 diabetes mellitus without complications; E66.01 Morbid (severe) obesity due to excess calories; F79 Unspecified intellectual disabilities; Z79.4 Long term (current) use of insulin; Z79.84 Long term (current) use of oral hypoglycemic drugs; Z79.82 Long term (current) use of aspirin; Z79.899 Other long term (current) drug therapy; Z87.891 Personal history of nicotine dependence
CPT/HCPCS: 99283

== ENCOUNTER → 2017-07-04 | Outpatient (CLI) | payer MEDICARE, MEDICAID ==
[~2017-07-04] MED LIST changes: +GLIM4TAB56 PO; -GUAI600T59 PO; +GUAI600T86 PO; +RANI150T11 PO
--- NOTE | 2017-07-05 10:51 | Diagnostic Imaging Report ---
PROCEDURE: US right lower extremity venous. TECHNIQUE: Multiple real-time grayscale images were obtained over the right lower extremity in various projections. Additional duplex Doppler and color Doppler images were also obtained. INDICATION: Right leg edema. FINDINGS: There is compressibility, color flow and normal waveform seen in the common femoral, profunda femoris and in the upper and mid segments of the superficial femoral vein. The lower segment of the superficial femoral vein is the not the visualized due to the large body habitus. The popliteal vein is patent and the posterior tibial vein appears patent. The peroneal vein is not visualized. IMPRESSION: The lower segment of the superficial femoral vein is the not visualized due to the large body habitus. No definite evidence of DVT in the right lower extremity otherwise. Dictated by: Dictated on workstation # [id number]
== END ==
LOC: RAD 16:58
PROVIDERS: ATTEND Family Medicine
DX: R22.41 Localized swelling, mass and lump, right lower limb (principal)

== ENCOUNTER → 2017-07-19 | Outpatient (CLI) | payer MEDICARE, MEDICAID | LOC: WOUNDCARE 13:04 | PROVIDERS: ATTEND Surgery | DX: I87.332 Chronic venous hypertension (idiopathic) with ulcer and inflammation of left lower extremity (principal); L97.221 Non-pressure chronic ulcer of left calf limited to breakdown of skin; R54 Age-related physical debility; E66.01 Morbid (severe) obesity due to excess calories; Z68.43 Body mass index [BMI] 50.0-59.9, adult | CPT/HCPCS: 99213 ==

== ENCOUNTER → 2018-04-30 | Outpatient (CLI) | payer MEDICARE, MEDICAID ==
[~2018-04-30] MED LIST changes: +ACHD5005 PO; -AMIO200T2 PO; +AMIO200T4 PO; -HYDR-3812 PO; -IPRA3AMP IH; -IPRA3AMP INH; +IPRA3AMP31 IH; +IPRA3AMP31 INH; +METF-399 PO; -METF1000 PO; +REGADENOSON 0.4 MG/5 ML SYR (LEXISCAN) IV ONE
[2018-04-30] MEDS: CATHETER FLUSH 10 ML SYR IV PRN ×2 (08:55→09:55)
[2018-04-30 09:52] VITALS: BP 151/53
--- NOTE | 2018-04-30 12:32 | STRESS TEST ---
DATE OF SERVICE: 04/30/2018 LEXISCAN MYOVIEW STRESS TEST REPORT Baseline heart rate is 79. Baseline blood pressure is 156/53. Baseline EKG is sinus rhythm with no ischemic changes. In summary, the patient was injected with 9.94 mCi of technetium-99 Myoview and the resting images were obtained. Then, the patient received 0.4 mg of Lexiscan followed by 29.6 mCi of technetium-99 Myoview. Throughout the test, there were no EKG changes. The resting and stress images were reviewed and compared in the short axis, horizontal long axis, and vertical long axis views. Review of the images showed mild apical thinning with good radiotracer uptake, no significant ischemia or infarction was seen. SSS is 2, SDS 1, TID value 1.05. On the gated images, the left ventricle appeared to be in normal size with normal contractility. Calculated ejection fraction is 63%. CONCLUSION: 1. The patient tolerated Lexiscan well. 2. Apical thinning with no significant ischemia or infarction on SPECT images. 3. Normal left ventricular size with normal contractility. Calculated ejection fraction is 63%. Job ID: [id number] DocumentID: [id number] Dictated Date: 04/30/2018 12:22:37 Curriculum And Instruction Specialist Date: 04/30/2018 12:31:35 Dictated By: GABRIELA MARTINEZ MD
== END ==
LOC: CARD 08:35
PROVIDERS: ATTEND Internal Medicine Cardiovascular Disease
DX: I25.10 Atherosclerotic heart disease of native coronary artery without angina pectoris (principal); R07.9 Chest pain, unspecified; I10 Essential (primary) hypertension; E78.5 Hyperlipidemia, unspecified
CPT/HCPCS: 78452; 93017